=== PATIENT | female | born 1950 | race Caucasian/White ===

== ENCOUNTER → 2018-08-24 11:10 | Outpatient (CLI) | payer MEDICARE, OTHER, SELFPAY ==
[2018-08-24 12:49] LABS: Free T4, Direct Thyroxine 2.37 ng/dL (0.78-2.19)
[2018-08-24 13:03] LABS: Thyroid Stimulating Hormone < 0.02 uIU/mL (0.47-4.68)
[2018-08-24 14:51] LABS: Vitamin D 25 Hydroxy (D3) 49.9 ng/mL (30.0-100.0)
== END ==
PROVIDERS: Family Provider Family Medicine; PCP Student in an Organized Health Care Education/Training Program; Visit Provider Student in an Organized Health Care Education/Training Program
DX: E55.9 Vitamin D deficiency, unspecified (principal); C73 Malignant neoplasm of thyroid gland
CPT/HCPCS: 36415; 82306; 84439; 84443

== ENCOUNTER → 2019-02-21 07:51 | Outpatient (CLI) | payer MEDICARE, OTHER, SELFPAY ==
--- NOTE | 2019-02-21 | DI.MG.S_ITS ---
BILATERAL DIGITAL SCREENING MAMMOGRAM 3D/2D WITH CAD: 02/21/2019 CLINICAL: Routine screening. Family history of breast cancer. Comparison is made to exams dated: 09/09/2017 mammogram, 12/20/2014 mammogram, and 12/15/2012 mammogram - [facility]. There are scattered fibroglandular elements in both breasts. Current study was also evaluated with a Computer Aided Detection (CAD) system. No significant masses, calcifications, or other findings are seen in either breast. There has been no significant interval change. IMPRESSION: NEGATIVE There is no mammographic evidence of malignancy. A 1 year screening mammogram is recommended. This exam was interpreted at Station ID: [id number]. NOTE: For mammograms, a report in lay terms will be sent to the patient. Approximately 15% of breast malignancies will not be visualized mammographically. In the management of a palpable breast mass, a negative mammogram must not discourage biopsy of a clinically suspicious lesion. Electronically Signed By: Tayla chamberlain/luciano:02/21/2019 09:30:08 letter sent: Normal Exam ACR BI-RADS Category 1: Negative 3341F
== END ==
PROVIDERS: PCP Student in an Organized Health Care Education/Training Program; Visit Provider Student in an Organized Health Care Education/Training Program
DX: Z12.31 Encounter for screening mammogram for malignant neoplasm of breast (principal); Z80.3 Family history of malignant neoplasm of breast
CPT/HCPCS: 77063; 77067

== ENCOUNTER → 2019-04-18 11:03 | Outpatient (CLI) | payer MEDICARE, OTHER, SELFPAY ==
[2019-04-18 12:47] LABS: Rubella Antibody IgG > 350.0 IU/mL (>15)
[2019-04-20 16:42] LABS: Rubeola Measles IgG > 300.00 AU/mL (< 13.50)
== END ==
PROVIDERS: PCP Student in an Organized Health Care Education/Training Program; Visit Provider Student in an Organized Health Care Education/Training Program
DX: Z92.29 Personal history of other drug therapy (principal)
CPT/HCPCS: 36415; 86735; 86762; 86765

== ENCOUNTER → 2019-11-29 13:50 | Outpatient (CLI) | payer MEDICARE, OTHER, SELFPAY ==
[2019-11-29 16:07] LABS: BUN Creatinine Ratio 28.8 (6-22); Blood Urea Nitrogen 17 mg/dL (7-17); Calcium 9.1 mg/dL (8.4-10.2); Carbon Dioxide 24 mmol/L (22-32); Chloride 104 mmol/L (98-107); Estimated Glomerular Filt Rate > 60.0 mL/min (>60); Glucose 138 mg/dL (80-110); HEMOLYSIS 19 (0-50); Potassium 3.9 mmol/L (3.4-5.1); Sodium 138 mmol/L (137-145)
[2019-11-29 17:34] LABS: Thyroid Stimulating Hormone < 0.015 uIU/mL (0.47-4.68)
== END ==
PROVIDERS: PCP Student in an Organized Health Care Education/Training Program; Referring Provider Student in an Organized Health Care Education/Training Program; Visit Provider Student in an Organized Health Care Education/Training Program
DX: E03.9 Hypothyroidism, unspecified (principal)
CPT/HCPCS: 36415; 80048; 84443

== ENCOUNTER → 2020-01-21 11:15 | Outpatient (CLI) | payer MEDICARE, OTHER, SELFPAY ==
[2020-01-21 12:10] LABS: Hemoglobin A1C% w Est Avg Glu 4.9 % (4.0-6.0)
[2020-01-21 12:13] LABS: Glucose 130 mg/dL (80-110)
[2020-01-21 12:29] LABS: Free T3, Triiodothyronine Free 3.54 pg/mL (2.77-5.27)
[2020-01-21 12:43] LABS: Thyroid Stimulating Hormone 0.029 uIU/mL (0.47-4.68)
== END ==
PROVIDERS: PCP Student in an Organized Health Care Education/Training Program; Referring Provider Student in an Organized Health Care Education/Training Program; Visit Provider Student in an Organized Health Care Education/Training Program
DX: R73.9 Hyperglycemia, unspecified (principal); E03.9 Hypothyroidism, unspecified
CPT/HCPCS: 36415; 82947; 83036; 84439; 84443; 84481

== ENCOUNTER → 2020-02-26 09:28 | Outpatient (CLI) | payer MEDICARE, OTHER, SELFPAY ==
--- NOTE | 2020-02-26 | DI.CT.S_ITS ---
PROCEDURE: CT SINUS SCREEN WO CON INDICATIONS: CHRONIC PANSINUSITIS TECHNIQUE: Noncontrast 3.0 mm axial images acquired from the frontal sinuses to the mid-sella, with coronal and sagittal reformats. For radiation dose reduction, the following was used: automated exposure control, adjustment of mA and/or kV according to patient size. COMPARISON: None. FINDINGS: Image quality: Excellent. Maxillary Sinuses: No bony remodeling or destruction. Sinuses are clear. Ethmoid Air Cells: No bony remodeling or destruction. Sinuses are clear. Sphenoid Sinuses: No bony remodeling or destruction. Sinuses are clear. Frontal Sinuses: No bony remodeling or destruction. Sinuses are clear. Ostiomeatal Complexes: Ostiomeatal complexes are patent. No Lupe cells. Miscellaneous: Visualized intra-orbital contents are normal. No michelle bullosa or paradoxical turbinate curvature. No nasal septal deviation. IMPRESSION: No findings of acute or chronic sinusitis. Dictated by: Carlos Araujo M.D. on 02/26/2020 at 9:58 Approved by: Carlos Araujo M.D. on 02/26/2020 at 10:02
--- NOTE | 2020-02-26 09:30 | DI.MG.S_ITS ---
BILATERAL DIGITAL SCREENING MAMMOGRAM 3D/2D WITH CAD: 02/26/2020 CLINICAL: Routine screening. Family history of breast cancer. Comparison is made to exams dated: 02/21/2019 mammogram, 09/09/2017 mammogram, 12/20/2014 mammogram, 12/15/2012 mammogram, and 08/31/2011 mammogram - [facility]. There are scattered fibroglandular elements in both breasts. Current study was also evaluated with a Computer Aided Detection (CAD) system. No significant masses, calcifications, or other findings are seen in either breast. There has been no significant interval change. IMPRESSION: NEGATIVE There is no mammographic evidence of malignancy. A 1 year screening mammogram is recommended. This exam was interpreted at Station ID: [id number]. NOTE: For mammograms, a report in lay terms will be sent to the patient. Approximately 15% of breast malignancies will not be visualized mammographically. In the management of a palpable breast mass, a negative mammogram must not discourage biopsy of a clinically suspicious lesion. Electronically Signed By: Ash pratt/luciano:02/26/2020 10:39:42 letter sent: Normal Exam ACR BI-RADS Category 1: Negative 3341F
== END ==
PROVIDERS: PCP Student in an Organized Health Care Education/Training Program; Referring Provider Student in an Organized Health Care Education/Training Program; Visit Provider Student in an Organized Health Care Education/Training Program
DX: J32.4 Chronic pansinusitis (principal); J34.89 Other specified disorders of nose and nasal sinuses; R09.82 Postnasal drip; Z12.31 Encounter for screening mammogram for malignant neoplasm of breast; Z80.3 Family history of malignant neoplasm of breast; Z13.820 Encounter for screening for osteoporosis; Z78.0 Asymptomatic menopausal state; E07.9 Disorder of thyroid, unspecified; F17.200 Nicotine dependence, unspecified, uncomplicated; Z82.62 Family history of osteoporosis; Z91.89 Other specified personal risk factors, not elsewhere classified
CPT/HCPCS: 70486; 77063; 77067; 77080

== ENCOUNTER → 2020-08-04 10:31 | Outpatient (CLI) | payer MEDICARE, OTHER, SELFPAY ==
[2020-08-04 12:49] LABS: TSH w/ Reflex to FT4 0.02 uIU/mL (0.47-4.68)
[2020-08-04 14:52] LABS: Free T4, Direct Thyroxine 2.34 ng/dL (0.78-2.19)
== END ==
PROVIDERS: PCP Student in an Organized Health Care Education/Training Program; Referring Provider Student in an Organized Health Care Education/Training Program; Visit Provider Student in an Organized Health Care Education/Training Program
DX: C73 Malignant neoplasm of thyroid gland (principal); E03.9 Hypothyroidism, unspecified
CPT/HCPCS: 36415; 84439; 84443

== ENCOUNTER → 2020-09-29 10:30 | Outpatient (CLI) | payer MEDICARE, OTHER, SELFPAY ==
[2020-09-29 12:21] LABS: TSH w/ Reflex to FT4 1.19 uIU/mL (0.47-4.68)
== END ==
PROVIDERS: PCP Student in an Organized Health Care Education/Training Program; Referring Provider Student in an Organized Health Care Education/Training Program; Visit Provider Student in an Organized Health Care Education/Training Program
DX: C73 Malignant neoplasm of thyroid gland (principal); E03.9 Hypothyroidism, unspecified
CPT/HCPCS: 36415; 84443

== ENCOUNTER → 2020-12-15 10:45 | Outpatient (CLI) | payer MEDICARE, OTHER, SELFPAY ==
--- NOTE | 2020-12-15 10:47 | DI.RAD.S_ITS ---
PROCEDURE: XR KNEE LT 3V INDICATIONS: Fall, left knee pain TECHNIQUE: 3 views of the knee were acquired. COMPARISON: None. FINDINGS: Bones: No acute fractures or dislocations. No suspicious bony lesions. Mild degenerative changes of the patellofemoral compartment. Soft tissues: No joint effusion. No suspicious soft tissue calcifications. IMPRESSION: Left knee without acute fracture or dislocation. Mild patellofemoral osteoarthrosis. If there is persistent clinical concern for occult fracture given adequate mechanism of injury, consider repeat imaging in 10-14 days. Dictated by: Nick Og M.D. on 12/15/2020 at 12:44 Approved by: Nick Og M.D. on 12/15/2020 at 12:45
[2020-12-15 11:35] LABS: BUN Creatinine Ratio 27.5 (6-22); Blood Urea Nitrogen 14 mg/dL (7-17); Calcium 9.3 mg/dL (8.4-10.2); Carbon Dioxide 26 mmol/L (22-32); Chloride 107 mmol/L (98-107); Estimated Glomerular Filt Rate > 60.0 mL/min (>60); Glucose 107 mg/dL (80-110); HEMOLYSIS < 15 (0-50); Potassium 4.3 mmol/L (3.4-5.1); Sodium 138 mmol/L (137-145)
[2020-12-15 12:19] LABS: Thyroid Stimulating Hormone 0.749 uIU/mL (0.47-4.68)
== END ==
PROVIDERS: PCP Student in an Organized Health Care Education/Training Program; Referring Provider Student in an Organized Health Care Education/Training Program; Visit Provider Student in an Organized Health Care Education/Training Program
DX: M25.562 Pain in left knee (principal); E03.9 Hypothyroidism, unspecified; Z79.1 Long term (current) use of non-steroidal anti-inflammatories (NSAID); C73 Malignant neoplasm of thyroid gland
CPT/HCPCS: 36415; 73562; 80048; 84443

== ENCOUNTER → 2021-04-30 09:12 | Outpatient (CLI) | payer MEDICARE, OTHER, SELFPAY ==
[2021-04-30 10:27] LABS: COVID19 -Nasal RAPID Negative (Negative)
== END ==
PROVIDERS: PCP Student in an Organized Health Care Education/Training Program; Visit Provider Specialist
DX: Z01.812 Encounter for preprocedural laboratory examination (principal); Z20.822 Contact with and (suspected) exposure to COVID-19
CPT/HCPCS: 87635; C9803

== ENCOUNTER 2021-05-01 07:17 | Day surgery (SDC) | payer MEDICARE, OTHER, SELFPAY ==
--- NOTE | 2021-05-01 | PATH_ITS ---
[facility] Accession Number: [id number] . 01 Material submitted: . PART A: colon - TRANSVERSE COLON POLYPS X3 90CM PART B: cecum - CECAL POLYP X2 PART C: body - POLYP AT 15CM . 02 Diagnosis: A. Transverse Colon, Polyps x3, 90 cm, Biopsy: Multiple fragments of tubular adenoma and sessile serrated adenoma. . B. Cecum, Polyp x2, Biopsy: Tubular adenoma in one of three fragments. . C. Colon, Polyp at 15 cm, Biopsy: Inflammatory polyp. Negative for dysplasia and malignancy. [facility] 05/04/2021 1118 Local . 02 Electronically signed: . Maryann Ronquillo MD, Pathologist NPI- [id number] . 01 Gross description: . Part A: TRANSVERSE COLON POLYPS X3 90CM: Received in formalin are multiple fragment(s) of stuart, soft tissue measuring 1.7 x 0.6 x 0.5 cm in aggregate submitted entirely in 1 cassette(s) Part B: CECAL POLYP X2: Received in formalin are 3 fragment(s) of stuart, soft tissue measuring 0.5 x 0.4 x 0.2 cm to 0.3 x 0.2 x 0.1 cm submitted entirely in 1 cassette(s) Part C: POLYP AT 15CM: Received in formalin is 1 fragment(s) of stuart, soft tissue measuring 0.3 x 0.3 x 0.3 cm submitted entirely in 1 cassette(s) /QBJ 05/02/2021 0802 Local . 02 Pathologist provided ICD-10: D12.0, D12.3 . 02 CPT . 558248, 307398, 028811 Performed at: 01 [facility] [address] [id number] MD Jerman Mari MD Phone: [phone] Performed at: 02 [facility] [address] [place] [id number] MD Maryann Ronquillo MD Phone: [phone]
[2021-05-01 07:33] VITALS: BP 122/80; PULSE 73; RESP 14; TEMP 36.2; O2SAT 96; BMI 22.3
[2021-05-01] MEDS: LACTATED RINGERS 1,000 ML 42 ML IV (07:46)
--- NOTE | 2021-05-01 08:46 | PM.HP.1 ---
History of Present Illness History of Present Illness Chief complaint: [facility] Narrative: The patient is a woman here for screening colonoscopy. Last exam was 5 years ago. She states she had polyps removed. No family history of colon cancer. Patient History Medical History Foot pain (2004) Macular degeneration (2012) Malignant neoplasm of thyroid gland Surgical History Anesthesia History of colonoscopy with polypectomy (06/27/15) History of thyroidectomy (1994) Status post ovarian cystectomy (1982) Family & Social History Family History Brother No problems noted. Mother Idiopathic thrombocytopenia purpura Cancer Sister No problems noted. Social History: household members spouse Tobacco & Substance use: Smoking Status Current every day smoker Smoking packs per day 0.5 alcohol intake current alcohol intake frequency a few times a week Substance Use Type does not use Meds Home Medications and Allergies Home Medications Medication Instructions Recorded Confirmed Type [place]/Cu/Glucosamine HCl/M 1 tab PO Q DAY #0 05/19/11 05/01/21 History (#GLUCOSAMINE COMPLEX) lbhsdvo-Q9-pfq-Hb-clhcu-tozn-boron 1 tab PO DAILY tab 06/28/18 05/01/21 History 600 mg-200 unit-40 mg-7.5 mg tablet potassium 99 mg tablet 10 meq PO DAILY 06/28/18 05/01/21 History vitamins A,C,E-pyat-bepsxg 14,320 1 cap PO ONCE cap 06/28/18 05/01/21 History unit-226 mg-200 unit capsule (ICaps AREDS) levothyroxine 125 mcg tablet 125 mcg PO DAILY #90 tab 08/04/20 05/01/21 Rx estradiol 0.5 mg tablet See Rx Instructions .ROUTE 01/27/21 05/01/21 Rx .COMPLEX #45 tab meloxicam 15 mg tablet See Rx Instructions .ROUTE 01/27/21 05/01/21 Rx .COMPLEX #90 tab progesterone micronized 100 mg See Rx Instructions .ROUTE 01/27/21 05/01/21 Rx capsule .COMPLEX #90 cap Allergies Allergy/AdvReac Type Severity Reaction Status Date / Time No Known Drug Allergies Allergy Verified 07/19/21 10:21 Review of Systems Review of Systems Narrative: No cardiopulmonary GI or symptoms. Exam Vital Signs (past 8 hours): - 05/01/21 07:33 Temperature 97.1 F L Pulse Rate 73 Respiratory Rate 14 Blood Pressure 122/80 Pulse Oximetry 96 Oxygen Delivery Method Room Air Narrative Exam Narrative: Pleasant cooperative patient no apparent distress. No masses in the region of her neck or thyroid. No palpable nodes in the neck or supraclavicular areas. Are clear to auscultation. No rales or rhonchi. Heart regular rate and rhythm no murmur gallop. Abdomen is soft nontender without mass. No obvious hernias. Patient is alert and oriented x3. Assessment & Plan Assessment and plan (1) Tubular adenoma of colon: Status: None Assessment & Plan narrative: Screening in high risk group. I have discussed the procedure and the rationale with the patient including risks of bleeding, perforation which would necessitate a major operation, failure to find remove all lesions and the potential to tattoo. She appeared to understand and wished to proceed. Time Spent With Patient Critical Care time: I spent a total of [] minutes of critical care time on this patient's care today; this time is exclusive of procedural time.
--- NOTE | 2021-05-01 08:50 | PM.PREOP ---
Pre-operative Note COVID-19 COVID-19 status: Negative Result date/Date tested (Pos, Neg/Pending): 04/30/21 Interval Note History & Physical reviewed/Exam performed by Physician: Yes Changes to H&P: No ASA Class (for procedural sedation): I
--- NOTE | 2021-05-01 09:22 | PM.OP.COLON ---
Operative Date/Time/Diagnoses Date of procedure: 05/01/21 Time of procedure: 09:22 Pre-op diagnosis: Personal history of colon polyps. Last colonoscopy 5.5 years ago Post-op diagnosis: same (Multiple tiny polyps. Rare sigmoid diverticulosis. One diverticulum in the cecum.) Procedure & Clinicians Study performed: Colonoscopy with cold biopsy Same procedure as scheduled: Yes Indications: Screening in high risk patient Surgeon: Omar Solorio Procedure Notes SCOAP/Timeout: Performed Procedure in detail: The patient was placed in the left lateral decubitus position and underwent IV sedation directed by the surgeon consisting of fentanyl and Versed. Digital exam was remarkable for decreased sphincter tone but otherwise normal. The scope was inserted and advanced through the rectum into the sigmoid, descending, and transverse colon. A small polyp was biopsied in the transverse colon on the way in. Pressure was applied is we made our way into the ascending colon and cecum. The cecum was reached identified by the ileocecal valve and the appendiceal opening. There were 2 very small lesions seen in the cecum which were biopsied and removed. Scope was gradually brought out. Additional Polyps were found at the transverse colon, and at 15 cm. The scope ultimately was retroflexed in the rectum. The appearance was remarkable for internal hemorrhoids with some mild inflammation but no cristal ulceration. The scope was removed and the patient tolerated the procedure well. Scope withdrawal time: 8 minutes(14 and half total) Sedation minutes: 28 Findings: divertiulosis and polyp(s) Specimen(s): other (Polyp biopsies) Complications: none Post-procedure Recommendations: Colonoscopy in 5 years Follow up: as needed Disposition: PACU
[2021-05-01 09:23] VITALS: BP 120/75; PULSE 82; RESP 22; TEMP 37.3; O2SAT 97
[2021-05-01] MEDS: fentaNYL 250 MCG/5 ML INJ IV (09:23)
[2021-05-01] MEDS: MIDAZOLAM 5 MG/5 ML VIAL IV (09:23)
[2021-05-01 09:28] VITALS: BP 108/75; PULSE 81; RESP 12; O2SAT 96
--- NOTE | 2021-05-01 09:29 | SUR.PHASEI ---
Received to PACU after colonoscopy with sedation. Report from MARCOS Landon.
[2021-05-01 09:31] VITALS: BP 116/67; PULSE 85; RESP 18; O2SAT 95
[2021-05-01 09:32] VITALS: BP 109/68; PULSE 81; RESP 20; O2SAT 97
== END 2021-05-01 09:32 | disposition home or self-care (01) ==
PROVIDERS: PCP Student in an Organized Health Care Education/Training Program; Referring Provider Specialist; Visit Provider Specialist
PROC: 0DJD8ZZ Inspection of Lower Intestinal Tract, Via Natural or Artificial Opening Endoscopic (ICD-10-PCS; CPT 45378; principal; 2021-05-01 08:30)
DX: Z12.11 Encounter for screening for malignant neoplasm of colon (principal); Z86.010 Personal history of colon polyps; K57.30 Diverticulosis of large intestine without perforation or abscess without bleeding; D12.3 Benign neoplasm of transverse colon; D12.0 Benign neoplasm of cecum; K51.40 Inflammatory polyps of colon without complications
CPT/HCPCS: 45380; 99152; 99153; J2250; J3010

== ENCOUNTER → 2021-12-17 11:06 | Outpatient (CLI) | payer MEDICARE, OTHER, SELFPAY ==
--- NOTE | 2021-12-17 11:12 | DI.RAD.S_ITS ---
PROCEDURE: XR CLAVICLE RT INDICATIONS: Clavicle mass TECHNIQUE: 2 views of the clavicle were acquired. COMPARISON: None. FINDINGS: Bones: No acute fracture or dislocation. Advanced acromioclavicular and glenohumeral osteoarthritis, with high-riding humeral head. No lytic or blastic lesion definitely identified radiographically. Soft tissues: No suspicious calcifications. There is a small bump seen superior to the acromioclavicular joint, which may correspond to reported mass, and can be seen with extension of shoulder bursal effusion. IMPRESSION: No definite lytic or blastic lesion of the clavicle. No acute radiographic abnormality. Advanced right shoulder degenerative changes with radiographic suggestion of rotator cuff pathology, which could be confirmed with MRI if needed. Dictated by: Frederick Zelaya M.D. on 12/17/2021 at 12:06 Approved by: Frederick Zelaya M.D. on 12/17/2021 at 12:09
== END ==
PROVIDERS: PCP Student in an Organized Health Care Education/Training Program; Referring Provider Student in an Organized Health Care Education/Training Program; Visit Provider Student in an Organized Health Care Education/Training Program
DX: M89.311 Hypertrophy of bone, right shoulder (principal)
CPT/HCPCS: 73000

== ENCOUNTER → 2021-12-19 10:34 | Outpatient (CLI) | payer MEDICARE, OTHER, SELFPAY ==
--- NOTE | 2021-12-19 10:37 | DI.MG.S_ITS ---
BILATERAL DIGITAL SCREENING MAMMOGRAM 3D/2D WITH CAD: 12/19/2021 CLINICAL: Routine screening. Family history of breast cancer. Comparison is made to exams dated: 02/26/2020 mammogram, 02/21/2019 mammogram, and 09/09/2017 mammogram - [facility]. There are scattered fibroglandular elements in both breasts. Current study was also evaluated with a Computer Aided Detection (CAD) system. No significant masses, calcifications, or other findings are seen in either breast. There has been no significant interval change. IMPRESSION: NEGATIVE There is no mammographic evidence of malignancy. A 1 year screening mammogram is recommended. Based on the Tyrer Cuzick model (a risk assessment model) the patient's lifetime risk is 9.9% and her 10 year risk is 6.3%. According to the ACR, ACS, and NCCN guidelines, an annual breast MRI exam along with mammogram is recommended if the patient's lifetime risk is 20% or greater. This exam was interpreted at Station ID: [id number]. NOTE: For mammograms, a report in lay terms will be sent to the patient. Approximately 15% of breast malignancies will not be visualized mammographically. In the management of a palpable breast mass, a negative mammogram must not discourage biopsy of a clinically suspicious lesion. Electronically Signed By: Nick gaxiola/luciano:12/21/2021 07:16:52 letter sent: Normal Exam ACR BI-RADS Category 1: Negative 3341F
--- NOTE | 2021-12-19 10:37 | DI.CT.S_ITS ---
PROCEDURE: CT CHEST WO CON INDICATIONS: Cough TECHNIQUE: Noncontrast 5 mm thick sections acquired from the pulmonary apices to the posterior costophrenic angles. 1 mm lung window, 5 mm thick coronal and sagittal and 7 mm axial MIP reformats were then acquired. For radiation dose reduction, the following was used: automated exposure control, adjustment of mA and/or kV according to patient size. COMPARISON: None. FINDINGS: Image quality: Excellent. Lungs and pleura: No acute air space opacities. No pleural effusions or pneumothorax. Central and peripheral airways are patent and normal in caliber. No mucosal plugging. Mediastinum: Heart size is normal. The coronary arteries have atherosclerotic calcifications. No pericardial effusion. No mediastinal adenopathy by size criteria. Thoracic aorta and central pulmonary arteries are normal in size. Esophagus is normal in caliber. No hiatal hernia. Bones and chest wall: No suspicious bony lesions. No vertebral body compression fractures. Disc disease in the lumbar spine. No axillary or supraclavicular adenopathy by size criteria. Thyroid gland status post resection with multiple metallic clips in the thyroid beds. Abdomen: Limited visualization of the upper abdomen shows no acute abnormality. IMPRESSION: No acute abnormality of the chest. The lungs are clear. Dictated by: Jonn Bernal M.D. on 12/21/2021 at 13:47 Approved by: Jonn Bernal M.D. on 12/21/2021 at 13:52
[2021-12-19 11:21] LABS: BUN Creatinine Ratio 24.2 (6-22); Blood Urea Nitrogen 15 mg/dL (7-17); Calcium 8.6 mg/dL (8.4-10.2); Carbon Dioxide 26 mmol/L (22-32); Chloride 105 mmol/L (98-107); Estimated Glomerular Filt Rate > 60 mL/min (>60); Glucose 102 mg/dL (80-110); HEMOLYSIS < 15 (0-50); Potassium 4.1 mmol/L (3.4-5.1); Sodium 137 mmol/L (137-145)
[2021-12-19 11:51] LABS: TSH w/ Reflex to FT4 1.12 uIU/mL (0.47-4.68)
== END ==
PROVIDERS: PCP Student in an Organized Health Care Education/Training Program; Referring Provider Student in an Organized Health Care Education/Training Program; Visit Provider Student in an Organized Health Care Education/Training Program
DX: Z12.31 Encounter for screening mammogram for malignant neoplasm of breast (principal); Z80.3 Family history of malignant neoplasm of breast; R05.9 Cough, unspecified; E03.9 Hypothyroidism, unspecified; E87.6 Hypokalemia; F17.200 Nicotine dependence, unspecified, uncomplicated
CPT/HCPCS: 36415; 71250; 77063; 77067; 80048; 84443

== ENCOUNTER → 2022-03-17 09:42 | Outpatient (CLI) | payer MEDICARE, OTHER, SELFPAY ==
--- NOTE | 2022-03-17 09:43 | DI.RAD.S_ITS ---
PROCEDURE: XR DEXA AXIAL SKELETON INDICATIONS: Osteoporosis screening COMPARISON: [facility], CR, XR DEXA AXIAL SKELETON, 02/26/2020, 9:54. FINDINGS: This blank DEXA report has been sent in error by the PACS system. The correct and complete report will be forthcoming in 1-2 days. Thank you for your patience and understanding. Dictated by: Carlos Araujo M.D. on 03/17/2022 at 13:44 Approved by: Carlos Araujo M.D. on 03/17/2022 at 13:45
== END ==
PROVIDERS: Family Provider Student in an Organized Health Care Education/Training Program; PCP Student in an Organized Health Care Education/Training Program; Referring Provider Student in an Organized Health Care Education/Training Program; Visit Provider Student in an Organized Health Care Education/Training Program
DX: Z78.0 Asymptomatic menopausal state (principal); Z13.820 Encounter for screening for osteoporosis
CPT/HCPCS: 77080

== ENCOUNTER → 2022-05-17 11:22 | Outpatient (CLI) | payer MEDICARE, OTHER, SELFPAY ==
--- NOTE | 2022-05-17 11:23 | DI.RAD.S_ITS ---
PROCEDURE: XR HIP W PEL IF DONE BILAT 2V INDICATIONS: Chronic hip pain not improving with PT; L>R TECHNIQUE: AP pelvis with lateral view(s) of the bilateral hip(s). COMPARISON: [facility], CT KUB, 08/17/2004, 9:54. FINDINGS: Bones: No fractures or dislocations. Pelvic ring appears intact. No suspicious bony lesions. Severe left and moderate right hip joint space narrowing with periarticular osteophyte formation. Degenerative disc and facet disease involves the inferior lumbar spine. Soft tissues: The visualized bowel gas pattern is normal. No suspicious soft tissue calcifications. IMPRESSION: 1. 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 Dictated by: Ilan Cazares [facility] Interpreted: Douglas Zuleta MD on 05/17/2022 at 12:04 Transcribed by: DANIEL on 05/17/2022 at 12:05 Approved by: Douglas Zuleta M.D. on 05/17/2022 at 17:52
== END ==
PROVIDERS: Family Provider Student in an Organized Health Care Education/Training Program; PCP Student in an Organized Health Care Education/Training Program; Referring Provider Student in an Organized Health Care Education/Training Program; Visit Provider Student in an Organized Health Care Education/Training Program
DX: M25.551 Pain in right hip (principal); M25.552 Pain in left hip; M16.0 Bilateral primary osteoarthritis of hip
CPT/HCPCS: 73521

== ENCOUNTER → 2022-08-20 11:50 | Outpatient (CLI) | payer MEDICARE, OTHER, SELFPAY | PROVIDERS: Family Provider Student in an Organized Health Care Education/Training Program; PCP Student in an Organized Health Care Education/Training Program; Visit Provider Registered Nurse | DX: N89.8 Other specified noninflammatory disorders of vagina (principal); N39.0 Urinary tract infection, site not specified | CPT/HCPCS: 87086; 87210 ==

== ENCOUNTER → 2022-08-26 11:56 | Outpatient (CLI) | payer MEDICARE, OTHER, SELFPAY ==
--- NOTE | 2022-08-26 11:57 | DI.US.S_ITS ---
PROCEDURE: US PELVIC COMPLETE INDICATIONS: Vaginal bleeding TECHNIQUE: Real-time scanning was performed of the pelvic organs, with image documentation. Additional endovaginal scanning was necessary due to incomplete visualization of the adnexal and endometrial structures by transabdominal scanning. COMPARISON: None. FINDINGS: Uterus: Uterus is anteverted and normal in size at 5.9 x 2.6 x 3.5 cm. The myometrium is heterogeneous. The endometrium measures 5 mm combined thickness. No fibroids noted. Ovaries: The right ovary measures 2.7 x 1.6 x 1.6 cm, with a calculated ovarian volume of 3.6 cc. Left ovary is surgically absent. No adnexal masses are seen. Other: No pathologic free abdominal or pelvic fluid. IMPRESSION: Borderline endometrial thickening in a patient with postmenopausal bleeding. Greater than 5 mm is abnormal. 5 mm is upper limits of normal. We strive to produce accurate, complete, and clear reports of imaging services. To assist us in improving patient care, this report was composed using standard report templates and voice recognition software. Therefore, it may contain abnormal punctuation, insertions and/or omissions. Occasional wrong-word or sound-alike substitutions may occur. Though we review the report and make efforts to correct it, we do recommend that the report be read carefully in proper context to recognize any text inaccuracies. Dictated by: Hoang Nelson M.D. on 08/26/2022 at 15:40 Approved by: Hoang Nelson M.D. on 08/26/2022 at 15:42
== END ==
PROVIDERS: Family Provider Student in an Organized Health Care Education/Training Program; PCP Student in an Organized Health Care Education/Training Program; Referring Provider Student in an Organized Health Care Education/Training Program; Visit Provider Student in an Organized Health Care Education/Training Program
DX: N95.0 Postmenopausal bleeding (principal); F17.200 Nicotine dependence, unspecified, uncomplicated
CPT/HCPCS: 76830; 76856; 81001

== ENCOUNTER → 2022-08-26 16:16 | Outpatient (CLI) | payer MEDICARE, OTHER, SELFPAY ==
[2022-08-26 17:13] LABS: Appearance Urine UA CLEAR; Bilirubin Urine UA NEGATIVE (NEGATIVE); Color Urine UA YELLOW; Glucose Urine UA NEGATIVE (Negative); Ketones Urine UA NEGATIVE (NEGATIVE); Leukocyte Esterase Urine UA NEGATIVE (NEGATIVE); Nitrite Urine UA NEGATIVE (Negative); Occult Blood Urine UA NEGATIVE (Negative); Protein Urine UA NEGATIVE (Negative); Specific Gravity Urine UA 1.015 (1.000-1.035); Urobilinogen Urine UA 0.2 E.U./dL (0.2)
[2022-08-26 17:22] LABS: Amorphous Sediment Urine 1+; Bacteria Urine None Seen; Culture Indicated Urine Cult Not Indicated; RBC Urine 0-1/HPF (0-5/HPF); WBC Urine None Seen (0-5/HPF)
== END ==
PROVIDERS: Family Provider Student in an Organized Health Care Education/Training Program; PCP Student in an Organized Health Care Education/Training Program; Referring Provider Student in an Organized Health Care Education/Training Program; Visit Provider Student in an Organized Health Care Education/Training Program
DX: N95.0 Postmenopausal bleeding (principal); F17.200 Nicotine dependence, unspecified, uncomplicated
CPT/HCPCS: 81001

== ENCOUNTER → 2022-09-27 11:05 | Outpatient (CLI) | payer MEDICARE, OTHER, SELFPAY ==
[2022-09-27 14:26] LABS: MRSA (Nasal) PCR Not Detected (Not Detect)
== END ==
PROVIDERS: Family Provider Student in an Organized Health Care Education/Training Program; PCP Student in an Organized Health Care Education/Training Program; Visit Provider Student in an Organized Health Care Education/Training Program
DX: Z01.810 Encounter for preprocedural cardiovascular examination (principal); E03.9 Hypothyroidism, unspecified
CPT/HCPCS: 87797

== ENCOUNTER → 2022-09-27 11:15 | Outpatient (CLI) | payer MEDICARE, OTHER, SELFPAY ==
[2022-09-27 12:18] LABS: Add Manual Diff / Slide Review NO; Basophils Absolute Auto 0 /uL (0-100); Basophils Percent Auto 0.4 % (0-2); Eosinophils Absolute Auto 100 /uL (0-450); Eosinophils Percent Auto 1.6 % (2-4); Hemoglobin 15.5 g/dL (12.0-16.0); Lymphocytes Absolute Auto 1600 /uL (1100-4500); Lymphocytes Percent Auto 20.6 % (25-40); Mean Corpuscular HGB Conc 34.5 % (30-36); Mean Corpuscular Volume 101.4 fL (80-100); Monocytes Absolute Auto 900 /uL (0-900); Monocytes Percent Auto 11.9 % (3-14); Neutrophils Absolute Auto 5000 /uL (1500-7000); Neutrophils Percent Auto 65.5 % (50-75); Platelet Count 184 X10^3/uL (150-400); Red Blood Cell Count 4.44 X10^6/uL (4.0-5.2); Red Cell Distribution Width 13.9 % (11.6-14.8); White Blood Cell Count 7.6 X10^3/uL (4.5-11.0)
[2022-09-27 12:51] LABS: Alanine Aminotransferase 33 IU/L (<35); Albumin 4.1 g/dL (3.5-5.0); Albumin Globulin Ratio 1.5 (1.0-2.8); Alkaline Phosphatase 105 U/L (38-126); Aspartate Aminotransferase 32 IU/L (14-36); BUN Creatinine Ratio 22.8 (6-22); Bilirubin Total 0.7 mg/dL (0.2-1.3); Blood Urea Nitrogen 13 mg/dL (7-17); Calcium 8.8 mg/dL (8.4-10.2); Carbon Dioxide 27 mmol/L (22-32); Chloride 103 mmol/L (98-107); Estimated Glomerular Filt Rate > 60 mL/min (>60); Globulin 2.8 g/dL (1.7-4.1); Glucose 92 mg/dL (80-110); HEMOLYSIS < 15 (0-50); Sodium 136 mmol/L (137-145); Total Protein 6.9 g/dL (6.3-8.2)
[2022-09-27 14:23] LABS: Appearance Urine UA CLEAR; Bilirubin Urine UA NEGATIVE (NEGATIVE); Color Urine UA YELLOW; Glucose Urine UA NEGATIVE (Negative); Ketones Urine UA 1+ (NEGATIVE); Leukocyte Esterase Urine UA NEGATIVE (NEGATIVE); Nitrite Urine UA NEGATIVE (Negative); Occult Blood Urine UA NEGATIVE (Negative); Protein Urine UA TRACE (Negative); Urobilinogen Urine UA 0.2 E.U./dL (0.2)
[2022-09-27 14:44] LABS: Bacteria Urine Few (2-10); Culture Indicated Urine Cult Not Indicated; RBC Urine None Seen (0-5/HPF); Squamous Epithelial Cell Urine 0-1 /HPF (0-5/HPF); WBC Urine 0-1/HPF (0-5/HPF)
== END ==
PROVIDERS: Family Provider Student in an Organized Health Care Education/Training Program; PCP Student in an Organized Health Care Education/Training Program; Referring Provider Student in an Organized Health Care Education/Training Program; Visit Provider Student in an Organized Health Care Education/Training Program
DX: E03.9 Hypothyroidism, unspecified (principal); Z01.810 Encounter for preprocedural cardiovascular examination
CPT/HCPCS: 36415; 80053; 81001; 84443; 85025; 87797

== ENCOUNTER 2023-05-07 08:53 | Emergency (ER) | payer MEDICARE, OTHER, SELFPAY ==
[2023-05-07 09:01] VITALS: BP 164/83; PULSE 89; RESP 15; TEMP 36.5; O2SAT 96; BMI 22.3
[2023-05-07 09:05] VITALS: BP 164/83; PULSE 98; O2SAT 96
--- NOTE | 2023-05-07 09:28 | ED.FALL ---
HPI - Fall General Chief Complaint: Fall Stated Complaint: fell last night/ L/shoulder and rib pain Time Seen by Provider: 05/07/23 09:06 Source: patient Mode of arrival: Ambulatory History of Present Illness HPI Narrative: Patient is 72-year-old female history of thyroidectomy thyroid cancer arthritis presenting today after fall downstairs last night. She says that she slipped in socks and fell directly on 1 stair landing mostly on her left side. Not hit her head did not lose consciousness no neck pain no numbness tingling or weakness. Complaining of some left rib pain. No sacral or hip pain. She would leftover tramadol and oxycodone from previous surgeries. She took 1 last night it did seem to help. But definite pain with movement. No head injury no loss of consciousness not on anticoagulation or antiplatelet medication. Related Data Home Medications Medication Instructions Recorded Confirmed [place]/Cu/Glucosamine HCl/M 1 tab PO Q DAY ##0 05/19/11 09/27/22 (#GLUCOSAMINE COMPLEX) clablkh-O3-jbu-Zn-gkgzc-wqyh-boron 1 tab PO DAILY 06/28/18 09/27/22 600 mg-200 unit-40 mg-7.5 mg tablet potassium 99 mg tablet 10 meq PO DAILY 06/28/18 09/27/22 vitamins A,C,J-bboz-vjgziy 4,296 1 cap PO ONCE 06/28/18 09/27/22 mcg-226 mg-90 mg capsule (ICaps AREDS) Previous Rx's Medication Instructions Recorded estradiol 0.5 mg tablet 0.25 mg (1/2 x 0.5 mg) PO DAILY 01/27/23 #45 tabs levothyroxine 125 mcg tablet 125 mcg PO DAILY #90 tabs 01/27/23 meloxicam 15 mg tablet 15 mg PO DAILY #90 tabs 01/27/23 progesterone micronized 100 mg 100 mg PO DAILY #90 caps 01/27/23 capsule Allergies Allergy/AdvReac Type Severity Reaction Status Date / Time No Known Drug Allergies Allergy Verified 05/07/23 09:06 Review of Systems Review of Systems ROS Unobtainable: All systems reviewed & are unremarkable except as noted in HPI and below Patient History Medical History Internal hemorrhoids Foot pain (2004) Macular degeneration (2012) Malignant neoplasm of thyroid gland Surgical History History of colonoscopy with polypectomy (06/27/15) Anesthesia History of thyroidectomy (1994) Status post ovarian cystectomy (1982) Family History Brother No problems noted. Mother Idiopathic thrombocytopenia purpura Cancer Sister No problems noted. Social History household members: spouse Smoking Status: Current every day smoker alcohol intake: current Smoking Status: Current every day smoker alcohol intake frequency: a few times a week Substance Use Type: does not use Exam Initial Vital Signs Initial Vital Signs: Vital Signs Temperature 97.7 F 05/07/23 09:01 Pulse Rate 89 05/07/23 09:01 Respiratory Rate 15 05/07/23 09:01 Blood Pressure 164/83 H 05/07/23 09:01 Pulse Oximetry 96 05/07/23 09:01 Oxygen Delivery Method Room Air 05/07/23 09:01 GENERAL: Alert pleasant 72-year-old female and in no acute distress. HEENT: Head atraumatic,EOMI, pupils reactive, face symmetric, moist mucous membranes CARDIOVASCULAR: Regular rate and rhythm without murmurs, rubs or gallops. RESPIRATORY: Breath sounds equal bilaterally, no wheezes rales or rhonchi. Respiratory distress no contusion no paradoxical movement ABDOMEN: Soft, nontender. Normoactive bowel sounds all 4 quadrants. No guarding or rebound. EXTREMITIES: Normal range of motion, no clubbing or edema. Neurovascularly intact Left upper extremity no significant shoulder tenderness although she says it sore no decreased range of motion no swelling no contusion distal radial pulse intact NEUROLOGICAL: Alert and oriented x4.Normal gait and speech. Cranial nerves II through XII grossly intact. SKIN: Warm, dry, no laceration, no petechiae, no rashes or lesions. Course Orders Ordered: ED Orders 05/07/23 09:33 XR ribs LT min 3V w CXR1V Stat Vital Signs Vital signs: Vital Signs - 8 hr 05/07/23 11:18 Respiratory Rate 18 Pulse Oximetry 96 Oxygen Delivery Method Room Air MDM - Fall Imaging Data Chest x-ray: Radiologist's Impression: PROCEDURE: XR RIBS LT MIN 3V W CXR1V INDICATIONS: fall pain 6-10 pasquale TECHNIQUE: 4 views of the right ribs were acquired, along with a single view chest. COMPARISON: None. FINDINGS: Surgical changes and devices: Surgical clips throughout the thyroid bed.. Bones and chest wall: Nondisplaced posterior fractures of the left 10th and 11th ribs with mild angulation. No pneumothorax. No suspicious bony lesions. Overlying soft tissues appear unremarkable. Lungs and pleura: No pleural effusions or pneumothorax. Lungs appear clear. Mediastinum: Mediastinal contours appear normal. Heart size is normal. IMPRESSION: Nondisplaced left 10th and 11th rib fractures. Dictated by: Glenn Araujo M.D. on 05/07/2023 at 9:19 MDM Narrative Medical decision making narrative: Patient well-appearing 72-year-old female presents today with left-sided rib and back pain after fall down 1 stair. No head injury not on anticoagulation. No real pelvis sacral or hip pain. At this time x-ray confirms fractured ribs 10 and 11. No hypoxia. Have lots of oxycodone and tramadol at home. Given incentive spirometer by Respiratory. Supportive care only. Discharge Plan Departure Patient Disposition: Home Clinical Impression: Closed rib fracture, Pre-operative cardiovascular examination Instructions: Rib Fracture Activity Restrictions/Additional Instructions: *You have been diagnosed with rib fracture *What to do: You have broken ribs 10 and 11. *Continue to take medications as directed Tylenol 1000 mg every 6 hours if needed for guie-mf-glvgpymq pain Tramadol 50 mg every 6 hours if needed for moderate pain Oxycodone 5 mg every 4-6 hours if needed for severe pain *Follow up with your primary care provider in 2-3 days or call [phone] *Return to ER if you should have increasing pain shortness of breath chest or any new, worsening or concerning symptoms Prescriptions: No Action [place]/Cu/Glucosamine HCl/M (#GLUCOSAMINE COMPLEX) 1 tab PO Q DAY Qty: 0 estradiol 0.5 mg tablet 0.25 mg PO DAILY Qty: 45 1RF meloxicam 15 mg tablet 15 mg PO DAILY Qty: 90 1RF levothyroxine 125 mcg tablet 125 mcg PO DAILY Qty: 90 1RF progesterone micronized 100 mg capsule 100 mg PO DAILY Qty: 90 1RF potassium 99 mg tablet 10 meq PO DAILY Ed-J1-pwg-zupk-kuj-efme-bor [id number] hc-xvmm-de-mg tablet 1 tab PO DAILY vitamins A,C,K-iibc-ibshef [ICaps AREDS] [id number] fmpi-qw-jjwo capsule 1 cap PO ONCE Referrals: Shyam Martinez DO [Primary Care Provider] - Stand Alone Forms: Patient Portal/API
--- NOTE | 2023-05-07 09:29 | PC.NURSE ---
Dr. Monzon at bedside
--- NOTE | 2023-05-07 09:33 | DI.RAD.S_ITS ---
PROCEDURE: XR RIBS LT MIN 3V W CXR1V INDICATIONS: fall pain 6-10 pasquale TECHNIQUE: 4 views of the right ribs were acquired, along with a single view chest. COMPARISON: None. FINDINGS: Surgical changes and devices: Surgical clips throughout the thyroid bed.. Bones and chest wall: Nondisplaced posterior fractures of the left 10th and 11th ribs with mild angulation. No pneumothorax. No suspicious bony lesions. Overlying soft tissues appear unremarkable. Lungs and pleura: No pleural effusions or pneumothorax. Lungs appear clear. Mediastinum: Mediastinal contours appear normal. Heart size is normal. IMPRESSION: Nondisplaced left 10th and 11th rib fractures. Dictated by: Glenn Araujo M.D. on 05/07/2023 at 9:19 Approved by: Glenn Araujo M.D. on 05/07/2023 at 9:22
[2023-05-07 11:18] VITALS: RESP 18; O2SAT 96
== END 2023-05-07 11:18 | disposition home or self-care (01) ==
PROVIDERS: Emergency Provider Emergency Medicine; Family Provider Student in an Organized Health Care Education/Training Program; PCP Family Medicine
DX: S22.42XA Multiple fractures of ribs, left side, initial encounter for closed fracture (principal); W10.9XXA Fall (on) (from) unspecified stairs and steps, initial encounter
CPT/HCPCS: 71101; 99281; 99283

== ENCOUNTER → 2023-05-16 09:55 | Outpatient (CLI) | payer MEDICARE, OTHER, SELFPAY ==
[2023-05-16 10:54] LABS: Add Manual Diff / Slide Review NO; Basophils Absolute Auto 0 /uL (0-100); Basophils Percent Auto 0.6 % (0-2); Eosinophils Absolute Auto 100 /uL (0-450); Hematocrit 45.7 % (36-46); Hemoglobin 15.7 g/dL (12.0-16.0); Lymphocytes Absolute Auto 1500 /uL (1100-4500); Lymphocytes Percent Auto 22.2 % (25-40); Mean Corpuscular HGB Conc 34.3 % (30-36); Mean Corpuscular Hemoglobin 34.6 PG (26-34); Mean Corpuscular Volume 100.8 fL (80-100); Monocytes Absolute Auto 600 /uL (0-900); Monocytes Percent Auto 9.1 % (3-14); Neutrophils Absolute Auto 4400 /uL (1500-7000); Neutrophils Percent Auto 66.1 % (50-75); Platelet Count 197 X10^3/uL (150-400); Red Blood Cell Count 4.54 X10^6/uL (4.0-5.2); Red Cell Distribution Width 14.2 % (11.6-14.8); White Blood Cell Count 6.6 X10^3/uL (4.5-11.0)
[2023-05-16 10:58] LABS: HEMOLYSIS 19 (0-50)
[2023-05-16 11:03] LABS: Alanine Aminotransferase 29 IU/L (<35); Albumin 4.2 g/dL (3.5-5.0); Albumin Globulin Ratio 1.4 (1.0-2.8); Alkaline Phosphatase 84 U/L (38-126); Aspartate Aminotransferase 38 IU/L (14-36); BUN Creatinine Ratio 32.1 (6-22); Bilirubin Total 1.2 mg/dL (0.2-1.3); Blood Urea Nitrogen 17 mg/dL (7-17); Calcium 9.2 mg/dL (8.4-10.2); Carbon Dioxide 22 mmol/L (22-32); Chloride 106 mmol/L (98-107); Estimated Glomerular Filt Rate > 60 mL/min (>60); Globulin 3.1 g/dL (1.7-4.1); Glucose 110 mg/dL (80-110); Potassium 4.1 mmol/L (3.4-5.1); Sodium 137 mmol/L (137-145); Total Protein 7.3 g/dL (6.3-8.2)
[2023-05-16 20:57] LABS: Free T4, Direct Thyroxine 1.65 ng/dL (0.78-2.19)
[2023-05-16 21:38] LABS: Vitamin B12 570 pg/mL (239-931)
== END ==
PROVIDERS: Family Provider Student in an Organized Health Care Education/Training Program; PCP Family Medicine; Referring Provider Family Medicine; Visit Provider Family Medicine
DX: E78.5 Hyperlipidemia, unspecified (principal); E03.9 Hypothyroidism, unspecified; E87.6 Hypokalemia; M16.0 Bilateral primary osteoarthritis of hip
CPT/HCPCS: 36415; 80053; 82607; 84439; 84443; 85025

== ENCOUNTER → 2023-05-31 10:33 | Outpatient (CLI) | payer MEDICARE, OTHER, SELFPAY ==
--- NOTE | 2023-05-31 10:34 | DI.CT.S_ITS ---
PROCEDURE: CT LUNG LOW DOSE SCREENING INDICATIONS: screening lung cancer TECHNIQUE: Noncontrast 2.0-2.5 mm thick sections acquired from the pulmonary apices to the posterior costophrenic angles. 7 mm thick axial MIP, and 5 mm coronal and sagittal reformats were then acquired. For radiation dose reduction, the following was used: automated exposure control, adjustment of mA and/or kV according to patient size. COMPARISON: None. FINDINGS: Image quality: Diagnostic. Lower Neck: No enlarged lymph nodes. Thyroid: Thyroidectomy. Axillae: No enlarged lymph nodes. Chest Wall: Unremarkable. Bones: Healing left posterior rib fractures. Lungs and Pleura: No pneumothorax or pleural effusions. No consolidation or suspicious nodules. A few regions of mucous impaction. Heart: Heart size is normal. No pericardial effusion. Thoracic Vessels: The aorta and pulmonary arteries demonstrate normal size. Mediastinum and Shefali: No enlarged lymph nodes. Esophagus: No wall thickening. No hiatal hernia. Upper Abdomen: Visualized upper abdomen solid organs and bowel loops appear normal. IMPRESSION: No suspicious pulmonary nodules. LUNG-RADS 1; continued annual screening, if eligible. Clinically Significant Non-pulmonary Findings: None. Dictated by: Ed Urban M.D. on 05/31/2023 at 12:00 Approved by: Ed Urban M.D. on 05/31/2023 at 12:07
== END ==
PROVIDERS: Family Provider Student in an Organized Health Care Education/Training Program; PCP Family Medicine; Referring Provider Family Medicine; Visit Provider Family Medicine
DX: F17.210 Nicotine dependence, cigarettes, uncomplicated (principal); Z12.2 Encounter for screening for malignant neoplasm of respiratory organs
CPT/HCPCS: 71271

== ENCOUNTER → 2023-07-05 13:34 | Outpatient (CLI) | payer MEDICARE, OTHER, SELFPAY ==
--- NOTE | 2023-07-05 13:36 | DI.US.S_ITS ---
PROCEDURE: US ABDOMEN LIMITED INDICATIONS: possible soft tissue mass TECHNIQUE: Real-time focused scanning was performed of the clinical concern of the left flank, with image documentation. COMPARISON: None. FINDINGS: Scan is performed at the area of clinical concern within the left flank. Normal appearing adipose tissue can be seen within this region, without an encapsulated lipoma. No masses or fluid collections are seen. No hematomas. IMPRESSION: Normal appearing adipose tissue can be seen at the area of clinical concern within the left flank. Dictated by: John Carson M.D. on 07/05/2023 at 15:23 Approved by: John Carson M.D. on 07/05/2023 at 15:24
== END ==
LOC: US 13:35
PROVIDERS: Family Provider Student in an Organized Health Care Education/Training Program; PCP Family Medicine; Referring Provider Physician Assistant; Visit Provider Physician Assistant
DX: R19.00 Intra-abdominal and pelvic swelling, mass and lump, unspecified site (principal)
CPT/HCPCS: 76705

== ENCOUNTER → 2023-07-14 08:50 | Outpatient (CLI) | payer MEDICARE, OTHER, SELFPAY ==
--- NOTE | 2023-07-14 08:51 | DI.MG.S_ITS ---
BILATERAL DIGITAL SCREENING MAMMOGRAM 3D/2D WITH CAD: 07/14/2023 CLINICAL: Routine screening. Family history of breast cancer. Comparison is made to exams dated: 12/19/2021 mammogram, 02/26/2020 mammogram, and 02/21/2019 mammogram - [facility]. Both breasts are heterogeneously dense, which may obscure small masses (category c / 51-75% glandular tissue). Current study was also evaluated with a Computer Aided Detection (CAD) system. No significant masses, calcifications, or other findings are seen in either breast. There has been no significant interval change. IMPRESSION: NEGATIVE There is no mammographic evidence of malignancy. A 1 year screening mammogram is recommended. Based on the Tyrer Cuzick model (a risk assessment model) the patient's lifetime risk is 13.9% and her 10 year risk is 9.7%. According to the ACR, ACS, and NCCN guidelines, an annual breast MRI exam along with mammogram is recommended if the patient's lifetime risk is 20% or greater. This exam was interpreted at Station ID: [id number]. NOTE: For mammograms, a report in lay terms will be sent to the patient. Approximately 15% of breast malignancies will not be visualized mammographically. In the management of a palpable breast mass, a negative mammogram must not discourage biopsy of a clinically suspicious lesion. Electronically Signed By: Frederick junior/luciano:07/14/2023 10:04:39 letter sent: Normal Exam ACR BI-RADS Category 1: Negative [id number]
== END ==
PROVIDERS: Family Provider Student in an Organized Health Care Education/Training Program; PCP Family Medicine; Referring Provider Family Medicine; Visit Provider Family Medicine
DX: Z12.31 Encounter for screening mammogram for malignant neoplasm of breast (principal); Z80.3 Family history of malignant neoplasm of breast; R92.333 Mammographic heterogeneous density, bilateral breasts
CPT/HCPCS: 77063; 77067

== ENCOUNTER → 2023-09-26 12:16 | Outpatient (CLI) | payer MEDICARE, OTHER, SELFPAY ==
--- NOTE | 2023-09-26 12:18 | DI.RAD.S_ITS ---
PROCEDURE: XR CHEST 2V INDICATIONS: Cough TECHNIQUE: 2 views of the chest were acquired. COMPARISON: [facility], CHEST 2 VIEW, 08/17/2016, 13:04. [facility], CHEST 2 VIEW, 02/12/2015, 16:27. FINDINGS: Surgical changes and devices: Surgical clips projecting over the upper mediastinum and neck. Lungs and pleura: Lungs are clear. No pleural effusions or pneumothorax. Mediastinum: Mediastinal contours are normal. Heart size is normal. Bones and chest wall: No suspicious bony abnormalities. Soft tissues appear unremarkable. IMPRESSION: No acute cardiopulmonary abnormality is seen. Dictated by: Leonel Camara M.D. on 09/26/2023 at 14:50 Approved by: Leonel Camara M.D. on 09/26/2023 at 14:50
== END ==
LOC: RAD 12:17
PROVIDERS: Family Provider Student in an Organized Health Care Education/Training Program; PCP Family Medicine; Referring Provider Nurse Practitioner Family; Visit Provider Nurse Practitioner Family
DX: R05.9 Cough, unspecified (principal)
CPT/HCPCS: 71046

== ENCOUNTER → 2024-01-10 16:32 | Outpatient (CLI) | payer MEDICARE, OTHER, SELFPAY ==
[2024-01-10 17:49] LABS: Free T4, Direct Thyroxine 1.22 ng/dL (0.78-2.19)
[2024-01-10 18:04] LABS: Thyroid Stimulating Hormone 0.167 uIU/mL (0.47-4.68)
[2024-01-10 18:22] LABS: Vitamin B12 410 pg/mL (239-931)
== END ==
PROVIDERS: PCP Family Medicine; Referring Provider Family Medicine; Visit Provider Family Medicine
DX: E03.9 Hypothyroidism, unspecified (principal); E78.5 Hyperlipidemia, unspecified; R79.89 Other specified abnormal findings of blood chemistry
CPT/HCPCS: 36415; 82607; 84439; 84443

== ENCOUNTER → 2024-05-16 16:02 | Outpatient (CLI) | payer MEDICARE, OTHER, SELFPAY ==
--- NOTE | 2024-05-16 16:04 | DI.RAD.S_ITS ---
PROCEDURE: XR HIP W PEL IF DONE MODESTO MIN 4V INDICATIONS: pain x 1 mo back and hips TECHNIQUE: AP pelvis with lateral view(s) of the bilateral hip(s). COMPARISON: [facility], , XR HIP W PEL IF DONE BILAT 2V, 05/17/2022, 11:35. FINDINGS: Diffuse osseous demineralization. Status post left hip total arthroplasty without hardware complication. Moderate right hip osteoarthritis, similar to 05/17/2022. Mild sacroiliac osteoarthritis. Lower lumbar osteoarthrosis. No acute fracture or dislocation. IMPRESSION: 1. Similar moderate right hip osteoarthritis. 2. Left hip total arthroplasty without hardware complication. Dictated by: Jimbo Heath M.D. on 05/16/2024 at 20:33 Approved by: Jimbo Heath M.D. on 05/16/2024 at 20:34
--- NOTE | 2024-05-16 16:04 | DI.RAD.S_ITS ---
PROCEDURE: XR LUMBAR SPINE 2-3V INDICATIONS: pain x 1 mo back and hips TECHNIQUE: 3 views of the lumbar spine were acquired. COMPARISON: None. FINDINGS: Five non rib-bearing lumbar vertebrae are present. The vertebral body heights are preserved. Mild levocurvature of the lumbar spine with the apex at L3. Grade 1 anterolisthesis of L4 on L5. Otherwise, the lumbar lordosis is preserved. Multilevel intervertebral disc height loss, severe at L5-S1. Multilevel severe facet arthropathy. Multilevel hypertrophy of the spinous processes. Partially identified left hip arthroplasty. Mild left sacroiliac osteoarthritis. IMPRESSION: Multilevel lumbar osteoarthrosis. Dictated by: Jimbo Heath M.D. on 05/16/2024 at 20:29 Approved by: Jimbo Heath M.D. on 05/16/2024 at 20:32
== END ==
LOC: RAD 16:04
PROVIDERS: PCP Family Medicine; Referring Provider Physician Assistant; Visit Provider Physician Assistant
DX: S39.012A Strain of muscle, fascia and tendon of lower back, initial encounter (principal); M16.0 Bilateral primary osteoarthritis of hip; M47.818 Spondylosis without myelopathy or radiculopathy, sacral and sacrococcygeal region; M47.816 Spondylosis without myelopathy or radiculopathy, lumbar region; X58.XXXA Exposure to other specified factors, initial encounter; Z96.642 Presence of left artificial hip joint
CPT/HCPCS: 72100; 73522

== ENCOUNTER → 2024-05-28 11:22 | Outpatient (CLI) | payer MEDICARE, OTHER, SELFPAY ==
--- NOTE | 2024-05-28 11:24 | DI.RAD.S_ITS ---
PROCEDURE: XR DEXA AXIAL SKELETON INDICATIONS: postmenopausal COMPARISON: [facility], CR, XR LUMBAR SPINE 2-3V, 05/16/2024, 16:08. [facility], CR, XR DEXA AXIAL SKELETON, 03/17/2022, 9:56. [facility], CR, XR DEXA AXIAL SKELETON, 02/26/2020, 9:54. [facility], CR, DEXA AXIAL SKELETON, 02/18/2015, 14:14. FINDINGS: Lumbar Spine: Bone mineral density 1.332 g/cm2, T score 2.1, previously 2.2. Please note that this is likely an overestimate given the osseous sclerosis and abnormal Z scores. Right Hip: Bone mineral density 0.852 g/cm2, T score -0.7, previously -0.2. Right Femoral Neck: Bone mineral density 0.789 g/cm2, T score -0.5, previously -0.9. Left Forearm: Bone mineral density 0.612 g/cm2, T score 0.6. Fracture Risk Calculation (when applicable): 10-year fracture risk of a major osteoporotic fracture 7.1 percent and of a hip fracture 1.3 percent. (T score greater or equal to -1.0 to: NORMAL) (T score from -1.1 to -2.4: OSTEOPENIA) (T score less than or equal to -2.5: OSTEOPOROSIS) IMPRESSION: 1. Normal bone density of the lumbar spine, likely an overestimate. Osteopenia at least by visual estimates. 2. Normal bone density of the right hip and femoral neck. 3. Normal bone density of the left forearm. Follow-up guidelines as follows: Osteoporosis: Consider a repeat DEXA and Vertebral Fracture Assessment (VFA) exam in 2 years or sooner if medically necessary, to reassess this patient's status. Osteopenia: Consider a repeat DEXA in 2-3 years to reassess this patient's status, or if there is a new clinical indication. Normal: Consider a repeat DEXA in 5 years or sooner, or if there is a new clinical indication. All treatment decisions require clinical judgment and consideration of individual patient factors, including patient preferences, comorbidities, previous drug use, risk factors not captured in the FRAX model (e.g., frailty, falls, vitamin D deficiency, increased bone turnover, interval significant decline in bone density ) and possible under- or over-estimation of fracture risk by FRAX. In addition, the NOF Guide recommends that FDA-approved medical therapies be considered in postmenopausal women and men age >= 50 years with a: * Hip or vertebral (clinical or morphometric) fracture * T-score of <=-2.5 at the spine or hip * Ten-year fracture probability by FRAX of >= 3% for hip fracture or >=20% for major osteoporotic fracture. People with diagnosed cases of osteoporosis or at high risk for fracture should have regular bone mineral density tests. For patients eligible for Medicare, routine testing is allowed once every 2 years. The testing frequency can be increased to one year for patients who have rapidly progressing disease, those who are receiving or discontinuing medical therapy to restore bone mass, or have additional risk factors. Dictated by: Jimbo Heath M.D. on 05/28/2024 at 15:52 Approved by: Jimbo Heath M.D. on 05/28/2024 at 15:55
== END ==
PROVIDERS: Family Provider Family Medicine; PCP Family Medicine; Referring Provider Family Medicine; Visit Provider Family Medicine
DX: Z78.0 Asymptomatic menopausal state (principal)
CPT/HCPCS: 77080; 77081

== ENCOUNTER → 2024-06-07 09:07 | Outpatient (CLI) | payer MEDICARE, OTHER, SELFPAY ==
--- NOTE | 2024-06-07 09:10 | DI.MRI.S_ITS ---
PROCEDURE: MR LUMBAR SPINE WO CON INDICATIONS: continued back pain TECHNIQUE: Noncontrast sagittal T1 spin echo and T2 fast echo, sagittal STIR, and T2 fast spin echo through the lumbar spine. In cases with scoliosis, additional coronal T2 fast spin echo may be performed. COMPARISON: [facility], CR, XR LUMBAR SPINE 2-3V, 05/16/2024, 16:08. FINDINGS: Image quality: This examination is limited by involuntary motion artifact. Alignment and Curvature: Mild levoconvex scoliotic curvature is noted. There is mild retrolisthesis seen at L1-L2. Mild grade 1 anterolisthesis is seen at L3-L4. Grade 1 anterolisthesis is seen at L4-L5. No associated pars defects are detected. Mild retrolisthesis is seen at L5-S1. Bone Marrow: Marrow is of normal overall signal. No acute vertebral body compression fractures. Spinal Cord: Conus medullaris terminates at the L1 level. Visualized cord demonstrates normal signal and size. Paraspinous Soft Tissues: No paravertebral masses. Several levels of bridging endplate osteophytes can be seen. T11-T12: Moderate loss of disc height is seen. Loss of disc signal is seen. Moderate disc bulge is seen, with a central/right disc osteophyte extrusion, with superior migration of the disc material, as on series 2, image 9. There is moderate to severe bilateral neural foraminal narrowing seen, with an associated degree of compression seen upon the exiting nerve roots. Moderate to severe central canal narrowing is seen, with mass effect upon the distal spinal cord. T12-L1: At least moderate loss of disc height and disc signal can be seen. Reactive marrow endplate changes are seen, which are hyperintense on T1-weighted and T2-weighted imaging and most consistent with fatty metaplasia (Modic type II changes). Moderate disc bulge is seen, which is eccentric to the left. Mild to moderate facet hypertrophy is seen. Moderate bilateral neural foraminal narrowing can be seen, left worse than right. Moderate central canal narrowing is seen. L1-L2: At least moderate loss of disc height and disc signal can be seen. At least moderate disc bulge is seen, with a central disc osteophyte protrusion. Moderate bilateral neural foraminal narrowing is seen. There is moderate to severe bilateral neural foraminal narrowing seen, with an associated degree of compression seen upon the exiting nerve roots. At least moderate central canal narrowing is seen at this level. L2-L3: Moderate loss of disc height is seen. Loss of disc signal is seen. Moderate generalized disc bulge is seen. There is at least moderate right-sided and moderate left-sided facet hypertrophy. There is at least moderate left-sided and moderate to severe right-sided neural foraminal narrowing. There is a degree of compression seen upon the exiting right L2 nerve root. At least moderate central canal narrowing is seen. L3-L4: Okrh-yd-afskphsh loss of disc height and disc signal can be seen. Moderate generalized disc bulge is seen. There is a superimposed central disc protrusion. Moderate to prominent facet hypertrophy is seen. There is at least moderate bilateral neural foraminal narrowing seen. There is a degree of compression seen upon the exiting nerve roots. Moderate to severe central canal narrowing is seen, as on series 3, image 20. L4-L5: Jyaj-gq-rdakrido loss of disc height and disc signal can be seen. Moderate disc bulge is seen, which is eccentric to the right. There is a central/right disc protrusion. At least moderate facet hypertrophy can be seen. Moderate to severe bilateral neural foraminal narrowing is seen. Moderate to severe central canal narrowing is seen. L5-S1: Moderate to severe loss of disc height and disc signal can be seen. Reactive marrow endplate changes are seen, which demonstrate mixed T1 weighted and T2-weighted signal, and are attributed to a combination of edema and fatty metaplasia (Modic type I and Modic type II changes). At least moderate disc bulge is seen, with a central disc osteophyte protrusion. Moderate facet hypertrophy can be seen, left worse than right. There is moderate to severe bilateral neural foraminal narrowing seen, with an associated degree of compression seen upon the exiting nerve roots. Moderate central canal narrowing is seen. IMPRESSION: Multiple levels of significant spine degenerative change can be seen. At the T11-T12 level, there is a central right disc extrusion seen. Dictated by: John Carson M.D. on 06/07/2024 at 16:41 Approved by: John Carson M.D. on 06/07/2024 at 16:48
[2024-06-07 10:49] LABS: Add Manual Diff / Slide Review NO; Basophils Absolute Auto 0 /uL (0-100); Basophils Percent Auto 0.3 % (0-2); Eosinophils Absolute Auto 100 /uL (0-450); Eosinophils Percent Auto 0.8 % (2-4); Hematocrit 44.8 % (36-46); Hemoglobin 15.4 g/dL (12.0-16.0); Lymphocytes Absolute Auto 2100 /uL (1100-4500); Lymphocytes Percent Auto 21.7 % (25-40); Mean Corpuscular HGB Conc 34.4 % (30-36); Mean Corpuscular Hemoglobin 32.8 PG (26-34); Mean Corpuscular Volume 95.5 fL (80-100); Monocytes Absolute Auto 700 /uL (0-900); Monocytes Percent Auto 7.4 % (3-14); Neutrophils Absolute Auto 6600 /uL (1500-7000); Neutrophils Percent Auto 69.8 % (50-75); Platelet Count 221 X10^3/uL (150-400); Red Blood Cell Count 4.69 X10^6/uL (4.0-5.2); Red Cell Distribution Width 14.7 % (11.6-14.8); White Blood Cell Count 9.5 X10^3/uL (4.5-11.0)
[2024-06-07 11:13] LABS: Alanine Aminotransferase 17 IU/L (<35); Albumin 4.2 g/dL (3.5-5.0); Albumin Globulin Ratio 1.6 (1.0-2.8); Alkaline Phosphatase 81 U/L (38-126); Aspartate Aminotransferase 21 IU/L (14-36); Bilirubin Total 0.9 mg/dL (0.2-1.3); Blood Urea Nitrogen 22 mg/dL (7-17); Calcium 9.5 mg/dL (8.4-10.2); Carbon Dioxide 26 mmol/L (22-32); Chloride 104 mmol/L (98-107); Cholesterol 302 mg/dL (140-199); Estimated Glomerular Filt Rate > 60 mL/min (>60); Globulin 2.7 g/dL (1.7-4.1); Glucose 91 mg/dL (80-110); HDL Cholesterol 66 mg/dL (40-60); HEMOLYSIS < 15 (0-50); LDL Cholesterol Calculated 210 mg/dL (<100); Potassium 4.2 mmol/L (3.4-5.1); Sodium 137 mmol/L (137-145); Total Protein 6.9 g/dL (6.3-8.2); Triglycerides 132 mg/dL (35-150)
[2024-06-07 11:26] LABS: Free T4, Direct Thyroxine 1.44 ng/dL (0.78-2.19)
[2024-06-07 11:40] LABS: Thyroid Stimulating Hormone 0.768 uIU/mL (0.47-4.68)
== END ==
PROVIDERS: Family Provider Family Medicine; PCP Family Medicine; Referring Provider Family Medicine; Visit Provider Family Medicine
DX: S39.012A Strain of muscle, fascia and tendon of lower back, initial encounter (principal); M47.816 Spondylosis without myelopathy or radiculopathy, lumbar region; M47.817 Spondylosis without myelopathy or radiculopathy, lumbosacral region; M51.24 Other intervertebral disc displacement, thoracic region; M48.04 Spinal stenosis, thoracic region; M48.061 Spinal stenosis, lumbar region without neurogenic claudication; M48.07 Spinal stenosis, lumbosacral region; E78.5 Hyperlipidemia, unspecified; E87.6 Hypokalemia; E03.9 Hypothyroidism, unspecified
CPT/HCPCS: 36415; 72148; 80053; 80061; 84439; 84443; 85025

== ENCOUNTER → 2024-06-21 15:10 | Outpatient (CLI) | payer MEDICARE, OTHER, SELFPAY ==
--- NOTE | 2024-06-21 15:11 | DI.CT.S_ITS ---
PROCEDURE: CT LUNG LOW DOSE SCREENING INDICATIONS: 50+ years smoking TECHNIQUE: Noncontrast 2.0-2.5 mm thick sections acquired from the pulmonary apices to the posterior costophrenic angles. 7 mm thick axial MIP, and 5 mm coronal and sagittal reformats were then acquired. For radiation dose reduction, the following was used: automated exposure control, adjustment of mA and/or kV according to patient size. COMPARISON: [facility], CT, CT LUNG LOW DOSE SCREENING, 05/31/2023, 10:44. FINDINGS: Image quality: Diagnostic Lungs and pleura: Mild background emphysematous changes. There is no overtly suspicious pulmonary nodule. No overtly suspicious pulmonary nodules are identified in the parenchyma, for example in the right 6/41, not large enough to foreign exchange student coordinator. However, in the left lower lobe, there is an endobronchial nodule that appears new, measuring 5 millimeters (3/188) Mediastinum, heart, and esophagus: No hiatal hernia. Normal heart size. Coronary calcifications. No pathologic lymphadenopathy by size criteria. Chest wall and thyroid: Thyroid bed postsurgical changes. Chest wall is unremarkable. Upper abdomen: No gross abnormality on these low-dose noncontrast images Bones: There are degenerative changes. IMPRESSION: Multiple small pulmonary nodules, the most significant is in the left lower lobe measuring 5 millimeters within a segmental bronchus. This is at a low suspicion for malignancy, favoring a mucous plug, however short interval follow-up recommended. LUNG-RADS 4A; low-dose chest CT recommended in 3 months Other findings above. Dictated by: Frederick Zelaya M.D. on 06/22/2024 at 11:59 Approved by: Frederick Zelaya M.D. on 06/22/2024 at 12:06
== END ==
PROVIDERS: Family Provider Family Medicine; PCP Family Medicine; Referring Provider Family Medicine; Visit Provider Family Medicine
DX: F17.210 Nicotine dependence, cigarettes, uncomplicated (principal); R91.8 Other nonspecific abnormal finding of lung field
CPT/HCPCS: 71271

== ENCOUNTER 2024-08-13 11:30 | Outpatient (RCR) | payer MEDICARE, OTHER, SELFPAY ==
--- NOTE | 2024-06-13 16:02 | PT.OIE ---
Current Diagnoses Bilateral primary osteoarthritis of hip (06/13/24) Spondylosis without myelopathy or radiculopathy, lumbar region (06/13/24) Difficulty in walking, not elsewhere classified (06/13/24) Abnormal posture (06/13/24) Strain of muscle, fascia and tendon of lower back, initial encounter (06/13/24) Past Medical History (Last Reviewed 06/05/24 @ 09:56 by Shyam Martinez DO) Colon polyps COPD (chronic obstructive pulmonary disease) Encounter for wellness examination in adult Foot pain (2004) History of thyroid cancer Hormone replacement therapy Internal hemorrhoids Lumbar strain Macular degeneration (2012) Malignant neoplasm of thyroid gland Medicare annual wellness visit, subsequent Tobacco use disorder Past Surgical History (Last Reviewed 06/05/24 @ 09:56 by Shyam Martinez DO) Anesthesia History of colonoscopy with polypectomy (06/27/15) History of thyroidectomy (1994) Status post ovarian cystectomy (1982) Visit Care Team Role Provider Type Shyam Martinez DO Family Provider Physician Primary Care Provider Specialty: Family Practice Address: [address] [place] [address], [facility] Email: [email or web address] [email or web address] PA-C Attending Provider Advanced Cms Expert Referring Provider Specialty: Medical Wound Care Address: [address] [place] [address], [facility] Email: [email or web address] Physical Therapy Initial Evaluation PT-OP-A Visit Information Start: 05/28/24 10:36 Freq: Status: Active Protocol: Document 06/13/24 11:36 [facility] (Rec: 06/13/24 12:32 [facility] [id number]) Out-Patient Physical Therapy Visit Information Visit Information Visit Type Initial Evaluation Visit Start Time 11:35 Visit Stop Time 12:20 Visit Number 1 Number of GUARD SUPERVISOR Visits 0 PT-OP-B Current Condition Start: 05/28/24 10:36 Freq: Status: Active Protocol: Document 06/13/24 11:36 [facility] (Rec: 06/13/24 12:32 [facility] [id number]) Current Condition History of Current Condition Onset Date mid Nov Current Complaints LBP, leg pain and weakness History of Current Condition Pt had L NIKA 1.5 year ago. 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 She was doing everything regular at home and started feeling like karl wasn't getting as much exercise and tried some of her old PT exercises and was doing a lot of sit to stands. Then her LB to ant hips and nto med thigh. She went to see doctor and he thought is was inflamed pelvic flexor muscles and gave her a shot in her bottom. helped for 2 days She went on a 1 week trip and had to help her walk with a car. Rajesh came back, started on course of steroids (felt better at day 2) then after the 6 days went back to back. She was also taking anti inflamatory meds and tramadol . She is still takng both of these along w/naproxen. Xray has shown degeneration in LB. R hip has moderate deteriation . Did stop alchol last september and lost 25 lbs. She feels like she lost muscle. Getting numb through L leg down through toes on L leg. Encouraged to see spine doctor and has an appt for Jul 10 w/a spine docor (non operative). Hoping to consider injection. Encouraged by all doctors she has seen so far, that PT will help. Did not have back pain prior to this. Was fully functional to get up/down from the ground. She has fallen 2x d/t legs giving out even though she is careful. One was new years yoli and karl was straightening the table and had one hand on the table and reached and leg gave out. She was at dinner and was holding husbands arm and when did small step down lgs gave out. Doing exercsies from doctor and they don't inc pain Prior Treatments and Tests MRI IMPRESSION: Multiple levels of significant spine degenerative change can be seen. At the T11-T12 level, there is a central right disc extrusion seen. 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 PT-OP-C Subjective Start: 05/28/24 10:36 Freq: Status: Active Protocol: Document 06/13/24 11:36 [facility] (Rec: 06/13/24 12:32 [id number] Patient Questionnaires Lower Extremity Functional Scale LEFS Score 4 Oswestry Low Back Index Oswestry Score 31/50 OP-PT Pain Assessment Location LBP Pain Location Details LBP around hips to groin and med thigh Description With Movement Frequency Frequent Radiating Location numbness lat leg to ant verma toes Pain Aggravating Factors Standing,Walking,Stair Climbing Other Pain Aggravating Factors rolling, bending in standing, sit to stand Pain Alleviating Factors Cold,Heat,Sitting PT-OP-G Mobility & Gait Start: 05/28/24 10:36 Freq: Status: Active Protocol: Document 06/13/24 11:36 [facility] (Rec: 06/13/24 12:32 [id number]) OP Gait Assessment Comments Gait Comments dec stance time B w/SPC and dec foot clearance and asks to hold PT arm w/FWW after PT edu more even gait and improved foot clearance and less evidence for imbalance PT-OP-J Posture/Palpation/Skin Start: 05/28/24 10:36 Freq: Status: Active Protocol: Document 06/13/24 11:36 [facility] (Rec: 06/13/24 12:32 [id number]) Posture Evaluation Comments Posture Comments L pelvic shear, L iliac crest higher, R torso rotation PT-OP-K Range of Motion Start: 05/28/24 10:36 Freq: Status: Active Protocol: Document 06/13/24 11:36 [facility] (Rec: 06/13/24 15:41 [facility] [id number]) Lumbar Spine Range of Motion Lumbar Spine Active Percentage Flexion 20 Extension 5 Lateral Flexion Left 20 Lateral Flexion Right 20 ROM Limitations Pain PT-OP-L Special Tests Start: 05/28/24 10:36 Freq: Status: Active Protocol: Document 06/13/24 11:36 [facility] (Rec: 06/13/24 12:32 [facility] [id number]) Special Tests Lumbar Spine Special Tests Slump Test Results positive L PT-OP-M Strength Start: 05/28/24 10:36 Freq: Status: Active Protocol: Document 06/13/24 11:36 [facility] (Rec: 06/13/24 12:32 [facility] [id number]) Hip Strength Hip Manual Muscle Testing Right Flexion (L2) 3+ Fair+ External Rotation 3 Fair Internal Rotation 3+ Fair+ Left Flexion (L2) 3+ Fair+ External Rotation 3+ Fair+ Internal Rotation 4+ Good+ Knee Strength Knee Manual Muscle Testing Right Flexion (S2) 4 Good Extension (L3) 4 Good Left Flexion (S2) 3+ Fair+ Extension (L3) 3+ Fair+ Ankle/Foot Strength Ankle and Foot Manual Muscle Testing Right Dorsiflexion (L4) 3+ Fair+ Plantarflexion (S1) 4 Good Left Dorsiflexion (L4) 3 Fair Plantarflexion (S1) 3+ Fair+ Comments PF tested seated B PT-OP-Q Treatments Start: 05/28/24 10:36 Freq: Status: Active Protocol: Document 06/13/24 11:36 [facility] (Rec: 06/13/24 12:32 [facility] [id number]) Gait Training Gait Activity walker Comments 8 min: edu for set up of height, work on gait w/4ww and edu on breaks and w/FWW 40ft trial each then 100ft w/FWW cues to keep close Self-Care/Home Management Treatment Education Other Education 15 min: discussed w/pt rehab potential and that it will be important to see w/ortho prior to chiro (pt was asking about this) and acupuncutre and noted that should be okay to try prior to ortho appt. Edu w /PT that we do not want to inc pain. Edu on importance of walker vs cane to unload back and LEs. Also, encouraged to cont to ice and heat for pain relief. Encouraged to cont the same exercises from physician at this time. PT-OP-T Assessment and Plan Start: 05/28/24 10:36 Freq: Status: Active Protocol: Document 06/13/24 11:36 [facility] (Rec: 06/13/24 12:32 [facility] [id number]) Physical Therapy Assessment Rehab Potential Rehabilitation Potential Good Evaluation Complexity Number of Personal Factors/Comorbidities 3 or More Number of Body Systems Impaired 4 or More Clinical Presentation at Evaluation Unstable Impairments Impairments Activity Tolerance,Balance, Coordination,Functional Activities,Functional Mobility ,Gait,Pain,Posture,ROM,Soft Tissue Mobility,Strength, Transfers Goals gait Short Term Goal (STG) Pt will be able to amb safely with SPC STG Duration 07/27 Shelter Goal (LTG) Pt will be able to amb safely without AD w/o significant gait deviations. 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 LTG Duration 09/05 Assessment Summary Assessment Pt presents w/2 months ago onset of significant back pain that radiates to ant hips and adductor region and pt has lat LLE numbness with inability to walk w/o AD now. 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 She is typically active so this is a big chagne to her lifestyle. She does have multilevel central canal and forminal narrowing B, with positive slump on L side. She has signifcant L sided LE weakness and does have signficantly decreased spinal ROM. She would benefit from skilled PT to improve mobility and return to more active function. Physical Therapy Plan Frequency and Duration Frequency of Treatment 2x/Week Duration of treatment (weeks) 12 Plan of Care Start Date 06/13/24 Plan of Care End Date 09/05/24 Therapeutic Interventions Therapeutic Interventions Balance Training,Gait Training ,Home Exercise Program,Joint Mobilizations,Manual Therapy, Neuromuscular Re-education, Patient/Caregiver Education, Self-Care/Home Management,Soft Tissue Mobilization,Taping, Therapeutic Activities, Therapeutic Exercises Modalities Cold Pack/Ice Massage,Electric Stimulation,Hot Packs, Infrared Therapy,Traction- Mechanical,Ultrasound Next Visit Focus/Plan Next Note Type Treatment Note Next Visit Plan reflex testing look at performance of HEP from doctor and adjust as needed; manual to improve hip, pelvis and spinal mobility gentley to start and soft tissue to back and hips
--- NOTE | 2024-06-20 14:11 | PT.OTN ---
Addendum entered and electronically signed by Sara Eduardo, PT 06/20/24 14:14: 12 min: IFC stim to LS in s/l w/MHP Original Note: Current Diagnoses Bilateral primary osteoarthritis of hip (06/20/24) Spondylosis without myelopathy or radiculopathy, lumbar region (06/20/24) Difficulty in walking, not elsewhere classified (06/20/24) Abnormal posture (06/20/24) Strain of muscle, fascia and tendon of lower back, initial encounter (06/20/24) Physical Therapy Treatment Note PT-OP-A Visit Information Start: 05/28/24 10:36 Freq: Status: Active Protocol: Document 06/20/24 11:32 [facility] (Rec: 06/20/24 14:11 [facility] [id number]) Out-Patient Physical Therapy Visit Information Visit Information Visit Type Treatment Note Visit Start Time 11:35 Visit Stop Time 12:28 Visit Number 2 Number of INFORMATION MANAGEMENT OFFICER Visits 0 PT-OP-B Current Condition Start: 05/28/24 10:36 Freq: Status: Active Protocol: Document 06/13/24 11:36 [facility] (Rec: 06/13/24 12:32 [facility] [id number]) Current Condition History of Current Condition Onset Date mid Mar Current Complaints LBP, leg pain and weakness History of Current Condition Pt had L NIKA 1.5 year ago. 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 She was doing everything regular at home and started feeling like seh wasn't getting as much exercise and tried some of her old PT exercises and was doing a lot of sit to stands. Then her LB to ant hips and nto med thigh. She went to see doctor and he thought is was inflamed pelvic flexor muscles and gave her a shot in her bottom. helped for 2 days She went on a 1 week trip and had to help her walk with a car. Rajesh came back, started on course of steroids (felt better at day 2) then after the 6 days went back to back. She was also taking anti inflamatory meds and tramadol . She is still takng both of these along w/naproxen. Xray has shown degeneration in LB. R hip has moderate deteriation . Did stop alchol last september and lost 25 lbs. She feels like she lost muscle. Getting numb through L leg down through toes on L leg. Encouraged to see spine doctor and has an appt for Jul 10 w/a spine docor (non operative). Hoping to consider injection. Encouraged by all doctors she has seen so far, that PT will help. Did not have back pain prior to this. Was fully functional to get up/down from the ground. She has fallen 2x d/t legs giving out even though she is careful. One was new years yoli and seh was straightening the table and had one hand on the table and reached and leg gave out. She was at dinner day and was holding husbands arm and when did small step down lgs gave out. Doing exercsies from doctor and they don't inc pain Prior Treatments and Tests MRI IMPRESSION: Multiple levels of significant spine degenerative change can be seen. At the T11-T12 level, there is a central right disc extrusion seen. 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 PT-OP-C Subjective Start: 05/28/24 10:36 Freq: Status: Active Protocol: Document 06/20/24 11:32 [facility] (Rec: 06/20/24 14:11 [facility] [id number]) OP-PT Subjective Patient Comments Patient Comments Pt reports she got a 4WW and it feels much better when walking PT-OP-G Mobility & Gait Start: 05/28/24 10:36 Freq: Status: Active Protocol: Document 06/13/24 11:36 [facility] (Rec: 06/13/24 12:32 [facility] [id number]) OP Gait Assessment Comments Gait Comments dec stance time B w/SPC and dec foot clearance and asks to hold PT arm w/FWW after PT edu more even gait and improved foot clearance and less evidence for imbalance PT-OP-J Posture/Palpation/Skin Start: 05/28/24 10:36 Freq: Status: Active Protocol: Document 06/13/24 11:36 [facility] (Rec: 06/13/24 12:32 [facility] [id number]) Posture Evaluation Comments Posture Comments L pelvic shear, L iliac crest higher, R torso rotation PT-OP-K Range of Motion Start: 05/28/24 10:36 Freq: Status: Active Protocol: Document 06/13/24 11:36 [facility] (Rec: 06/13/24 15:41 [facility] [id number]) Lumbar Spine Range of Motion Lumbar Spine Active Percentage Flexion 20 Extension 5 Lateral Flexion Left 20 Lateral Flexion Right 20 ROM Limitations Pain PT-OP-L Special Tests Start: 05/28/24 10:36 Freq: Status: Active Protocol: Document 06/13/24 11:36 [facility] (Rec: 06/13/24 12:32 [facility] [id number]) Special Tests Lumbar Spine Special Tests Slump Test Results positive L PT-OP-M Strength Start: 05/28/24 10:36 Freq: Status: Active Protocol: Document 06/13/24 11:36 [facility] (Rec: 06/13/24 12:32 [facility] [id number]) Hip Strength Hip Manual Muscle Testing Right Flexion (L2) 3+ Fair+ External Rotation 3 Fair Internal Rotation 3+ Fair+ Left Flexion (L2) 3+ Fair+ External Rotation 3+ Fair+ Internal Rotation 4+ Good+ Knee Strength Knee Manual Muscle Testing Right Flexion (S2) 4 Good Extension (L3) 4 Good Left Flexion (S2) 3+ Fair+ Extension (L3) 3+ Fair+ Ankle/Foot Strength Ankle and Foot Manual Muscle Testing Right Dorsiflexion (L4) 3+ Fair+ Plantarflexion (S1) 4 Good Left Dorsiflexion (L4) 3 Fair Plantarflexion (S1) 3+ Fair+ Comments PF tested seated B PT-OP-Q Treatments Start: 05/28/24 10:36 Freq: Status: Active Protocol: Document 06/20/24 11:32 [facility] (Rec: 06/20/24 14:11 [facility] [id number]) Therapeutic Exercises Supine Exercises pelvic tilt Reps/Minutes 3 Comments good form LTR Side bilateral Reps/Minutes 10 Comments cues core to pull knees back towards chest mini crunch Reps/Minutes 10 Comments small comfortable range stretch Supine Exercise Name 1. SKTC 2. piriformis 3. DKTC 4. figure 4 pull to chest Side bilateral Reps/Minutes 30 sec ea Comments stopped SKTC d/t no stretch hip abd Supine Exercise Name opp knee bent Side bilateral Reps/Minutes 12 Comments cues core Sidelying Exercises clamshell Side bilateral Reps/Minutes 12 Comments cues core hip abd Side left Reps/Minutes 2 Comments stopped d/t pain and weakness Other Exercises cat/cow Other Exercise Name attempted both forearms and knees and on hands and kenes Reps/Minutes 3 ea Comments better on forearms and knees d /t distractive force whe in ext Manual Therapy Treatment Consent Patient gave verbal consent for manual Yes treatment Soft Tissue Mobilization spine Body Location L along SI, ES, QL Mobilization Type Rolling Intensity/Depth Moderate Body Position Sidelying glutes Body Location L piriformis and sup glutes Mobilization Type Rolling Intensity/Depth Moderate Body Position Sidelying Joint Mobilizations innominate Joint L add c/r PT-OP-T Assessment and Plan Start: 05/28/24 10:36 Freq: Status: Active Protocol: Document 06/20/24 11:32 [facility] (Rec: 06/20/24 14:11 [facility] [id number]) Physical Therapy Assessment Goals gait Short Term Goal (STG) Pt will be able to amb safely with SPC STG Duration 07/27 Account Consultant Goal (LTG) Pt will be able to amb safely without AD w/o significant gait deviations. 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 LTG Duration 09/05 Assessment Summary Assessment Pt did well with exercises given by provider overall w/ min cues and made adjustment of instead of SKTC change to piriformis knee to opp chest. She had improved post dep L pelvis after manual. unable to do s/l hip abd d/t weakness and pain Physical Therapy Plan Next Visit Focus/Plan Next Note Type Treatment Note Next Visit Plan work on hip strengthening manual to pelvis and spinal gently and STM to back and hips and n pathway L
--- NOTE | 2024-06-22 14:15 | PT.OTN ---
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 She was doing everything regular at home and started feeling like karl wasn't getting as much exercise and tried some of her old PT exercises and was doing a lot of sit to stands. Then her LB to ant hips and nto med thigh. She went to see doctor and he thought is was inflamed pelvic flexor muscles and gave her a shot in her bottom. helped for 2 days She went on a 1 week trip and had to help her walk with a car. Rajesh came back, started on course of steroids (felt better at day 2) then after the 6 days went back to back. She was also taking anti inflamatory meds and tramadol . She is still takng both of these along w/naproxen. Xray has shown degeneration in LB. R hip has moderate deteriation . Did stop alchol last september and lost 25 lbs. She feels like she lost muscle. Getting numb through L leg down through toes on L leg. Encouraged to see spine doctor and has an appt for Jul 10 w/a spine docor (non operative). Hoping to consider injection. Encouraged by all doctors she has seen so far, that PT will help. Did not have back pain prior to this. Was fully functional to get up/down from the ground. She has fallen 2x d/t legs giving out even though she is careful. One was new years yoli and seh was straightening the table and had one hand on the table and reached and leg gave out. She was at dinner th day and was holding husbands arm and when did small step down lgs gave out. Doing exercsies from doctor and they don't inc pain Prior Treatments and Tests MRI IMPRESSION: Multiple levels of significant spine degenerative change can be seen. At the T11-T12 level, there is a central right disc extrusion seen. 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 She currently has tingling/numbness into L toes and slightly into R toes. PT-OP-G Mobility & Gait Start: 05/28/24 10:36 Freq: Status: Active Protocol: Document 06/13/24 11:36 [facility] (Rec: 06/13/24 12:32 [facility] [id number]) OP Gait Assessment Comments Gait Comments dec stance time B w/SPC and dec foot clearance and asks to hold PT arm w/FWW after PT edu more even gait and improved foot clearance and less evidence for imbalance PT-OP-J Posture/Palpation/Skin Start: 05/28/24 10:36 Freq: Status: Active Protocol: Document 06/13/24 11:36 [facility] (Rec: 06/13/24 12:32 [facility] [id number]) Posture Evaluation Comments Posture Comments L pelvic shear, L iliac crest higher, R torso rotation PT-OP-K Range of Motion Start: 05/28/24 10:36 Freq: Status: Active Protocol: Document 06/13/24 11:36 [facility] (Rec: 06/13/24 15:41 [facility] [id number]) Lumbar Spine Range of Motion Lumbar Spine Active Percentage Flexion 20 Extension 5 Lateral Flexion Left 20 Lateral Flexion Right 20 ROM Limitations Pain PT-OP-L Special Tests Start: 05/28/24 10:36 Freq: Status: Active Protocol: Document 06/13/24 11:36 [facility] (Rec: 06/13/24 12:32 [facility] [id number]) Special Tests Lumbar Spine Special Tests Slump Test Results positive L PT-OP-M Strength Start: 05/28/24 10:36 Freq: Status: Active Protocol: Document 06/13/24 11:36 [facility] (Rec: 06/13/24 12:32 [facility] [id number]) Hip Strength Hip Manual Muscle Testing Right Flexion (L2) 3+ Fair+ External Rotation 3 Fair Internal Rotation 3+ Fair+ Left Flexion (L2) 3+ Fair+ External Rotation 3+ Fair+ Internal Rotation 4+ Good+ Knee Strength Knee Manual Muscle Testing Right Flexion (S2) 4 Good Extension (L3) 4 Good Left Flexion (S2) 3+ Fair+ Extension (L3) 3+ Fair+ Ankle/Foot Strength Ankle and Foot Manual Muscle Testing Right Dorsiflexion (L4) 3+ Fair+ Plantarflexion (S1) 4 Good Left Dorsiflexion (L4) 3 Fair Plantarflexion (S1) 3+ Fair+ Comments PF tested seated B PT-OP-Q Treatments Start: 05/28/24 10:36 Freq: Status: Active Protocol: Document 06/22/24 13:16 NBM (Rec: 06/22/24 13:52 [facility] [id number]) Therapeutic Exercises Prone Exercises extension Prone Exercise Name 5'>5' on elbows Comments radicular symptoms improve Other Exercises cat/cow Other Exercise Name forearms and knees Reps/Minutes 3 ea Comments better on forearms and knees d /t distractive force whe in ext Gait Training Gait Activity walker Description blue 4WW Level of Assistance SBA Surface carpet, tile Distance/Duration 40 ft Comments cues for proximation Manual Therapy Treatment Consent Patient gave verbal consent for manual Yes treatment Soft Tissue Mobilization spine Body Location L along SI, ES, QL Mobilization Type Rolling Intensity/Depth Moderate Body Position Sidelying glutes Body Location L piriformis and sup glutes Mobilization Type Rolling Intensity/Depth Moderate Body Position Sidelying PT-OP-R Modalities Start: 05/28/24 10:36 Freq: Status: Active Protocol: Document 06/22/24 13:16 NBM (Rec: 06/22/24 13:52 [facility] [id number]) Electric Stimulation Electric Stimulation Interferential Current (IFC) Body Location LS Target/Sweep Sweep High/Low High Patient Position Sidelying Combined With Heat/Cold Hot Pack PT-OP-T Assessment and Plan Start: 05/28/24 10:36 Freq: Status: Active Protocol: Document 06/22/24 13:16 [facility] (Rec: 06/22/24 13:52 [facility] [id number]) Physical Therapy Assessment Goals gait Short Term Goal (STG) Pt will be able to amb safely with SPC STG Duration 07/27 Custom Shoe Designer And Maker Goal (LTG) Pt will be able to amb safely without AD w/o significant gait deviations. 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 LTG Duration 09/05 Assessment Summary Assessment Argelia presents with 4WW and requires cues for proximation with ambulation. She is educated on purpose of prone extension ex and appropriate progression. She requires initial cueing for cat/camel but demos improved form with repetition. Palpable tension to L lumbar paraspinals improves with soft tissue mobilization. Physical Therapy Plan Frequency and Duration Frequency of Treatment 2x/Week Duration of treatment (weeks) 12 Plan of Care Start Date 06/13/24 Plan of Care End Date 09/05/24 Therapeutic Interventions Therapeutic Interventions Balance Training,Gait Training ,Home Exercise Program,Joint Mobilizations,Manual Therapy, Neuromuscular Re-education, Patient/Caregiver Education, Self-Care/Home Management,Soft Tissue Mobilization,Taping, Therapeutic Activities, Therapeutic Exercises Modalities Cold Pack/Ice Massage,Electric Stimulation,Hot Packs, Infrared Therapy,Traction- Mechanical,Ultrasound Next Visit Focus/Plan Next Note Type Treatment Note Next Visit Plan work on hip strengthening manual to pelvis and spinal gently and STM to back and hips and n pathway L
--- NOTE | 2024-06-26 17:07 | PT.OTN ---
Current Diagnoses Bilateral primary osteoarthritis of hip (06/26/24) Spondylosis without myelopathy or radiculopathy, lumbar region (06/26/24) Difficulty in walking, not elsewhere classified (06/26/24) Abnormal posture (06/26/24) Strain of muscle, fascia and tendon of lower back, initial encounter (06/26/24) Physical Therapy Treatment Note PT-OP-A Visit Information Start: 05/28/24 10:36 Freq: Status: Active Protocol: Document 06/26/24 10:47 NBM (Rec: 06/26/24 11:39 [facility] [id number]) Out-Patient Physical Therapy Visit Information Visit Information Visit Type Treatment Note Visit Start Time 10:48 Visit Stop Time 11:32 Visit Number 4 Number of OFFICE CLERK ROUTINE Visits 2 PT-OP-B Current Condition Start: 05/28/24 10:36 Freq: Status: Active Protocol: Document 06/13/24 11:36 [facility] (Rec: 06/13/24 12:32 [facility] [id number]) Current Condition History of Current Condition Onset Date mid Mar Current Complaints LBP, leg pain and weakness History of Current Condition Pt had L NIKA 1.5 year ago. 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 She was doing everything regular at home and started feeling like seh wasn't getting as much exercise and tried some of her old PT exercises and was doing a lot of sit to stands. Then her LB to ant hips and nto med thigh. She went to see doctor and he thought is was inflamed pelvic flexor muscles and gave her a shot in her bottom. helped for 2 days She went on a 1 week trip and had to help her walk with a car. Rajesh came back, started on course of steroids (felt better at day 2) then after the 6 days went back to back. She was also taking anti inflamatory meds and tramadol . She is still takng both of these along w/naproxen. Xray has shown degeneration in LB. R hip has moderate deteriation . Did stop alchol last september and lost 25 lbs. She feels like she lost muscle. Getting numb through L leg down through toes on L leg. Encouraged to see spine doctor and has an appt for Jul 10 w/a spine docor (non operative). Hoping to consider injection. Encouraged by all doctors she has seen so far, that PT will help. Did not have back pain prior to this. Was fully functional to get up/down from the ground. She has fallen 2x d/t legs giving out even though she is careful. One was new years yoli and seh was straightening the table and had one hand on the table and reached and leg gave out. She was at dinner day and was holding husbands arm and when did small step down lgs gave out. Doing exercsies from doctor and they don't inc pain Prior Treatments and Tests MRI IMPRESSION: Multiple levels of significant spine degenerative change can be seen. At the T11-T12 level, there is a central right disc extrusion seen. 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 L leg is numb all the time into toes, and R a little bit into toes currently. Her spine MD appt is in two weeks. She wonders about dry needling with electrical stimulation because her son had that when he hurt is back and it helped. PT-OP-G Mobility & Gait Start: 05/28/24 10:36 Freq: Status: Active Protocol: Document 06/13/24 11:36 [facility] (Rec: 06/13/24 12:32 [facility] [id number]) OP Gait Assessment Comments Gait Comments dec stance time B w/SPC and dec foot clearance and asks to hold PT arm w/FWW after PT edu more even gait and improved foot clearance and less evidence for imbalance PT-OP-J Posture/Palpation/Skin Start: 05/28/24 10:36 Freq: Status: Active Protocol: Document 06/13/24 11:36 [facility] (Rec: 06/13/24 12:32 [facility] [id number]) Posture Evaluation Comments Posture Comments L pelvic shear, L iliac crest higher, R torso rotation PT-OP-K Range of Motion Start: 05/28/24 10:36 Freq: Status: Active Protocol: Document 06/13/24 11:36 [facility] (Rec: 06/13/24 15:41 [facility] [id number]) Lumbar Spine Range of Motion Lumbar Spine Active Percentage Flexion 20 Extension 5 Lateral Flexion Left 20 Lateral Flexion Right 20 ROM Limitations Pain PT-OP-L Special Tests Start: 05/28/24 10:36 Freq: Status: Active Protocol: Document 06/13/24 11:36 [facility] (Rec: 06/13/24 12:32 [facility] [id number]) Special Tests Lumbar Spine Special Tests Slump Test Results positive L PT-OP-M Strength Start: 05/28/24 10:36 Freq: Status: Active Protocol: Document 06/13/24 11:36 [facility] (Rec: 06/13/24 12:32 [facility] [id number]) Hip Strength Hip Manual Muscle Testing Right Flexion (L2) 3+ Fair+ External Rotation 3 Fair Internal Rotation 3+ Fair+ Left Flexion (L2) 3+ Fair+ External Rotation 3+ Fair+ Internal Rotation 4+ Good+ Knee Strength Knee Manual Muscle Testing Right Flexion (S2) 4 Good Extension (L3) 4 Good Left Flexion (S2) 3+ Fair+ Extension (L3) 3+ Fair+ Ankle/Foot Strength Ankle and Foot Manual Muscle Testing Right Dorsiflexion (L4) 3+ Fair+ Plantarflexion (S1) 4 Good Left Dorsiflexion (L4) 3 Fair Plantarflexion (S1) 3+ Fair+ Comments PF tested seated B PT-OP-Q Treatments Start: 05/28/24 10:36 Freq: Status: Active Protocol: Document 06/26/24 10:47 NBM (Rec: 06/26/24 11:39 [facility] [id number]) Therapeutic Exercises Prone Exercises extension Prone Exercise Name 5'>5' on forearms> hands ( partial cobra) Comments radicular symptoms improve Sidelying Exercises clamshell Sidelying Exercise Name added to HEP Side bilateral Reps/Minutes x10 ea Comments cues core and breath hip abd Sidelying Exercise Name in slight extension (L>R cueing) Side bilateral Reps/Minutes x8 ea Comments no pain reported, heavy cueing for TrA, breathwork, form Other Exercises cat/cow Other Exercise Name forearms and knees Reps/Minutes x10 Comments better on forearms and knees d /t distractive force whe in ext Gait Training Gait Activity walker Description blue 4WW not previously adjusted Comments 8 min: edu for set up of height, work on gait w/4ww, cues to keep close. Manual Therapy Treatment Consent Patient gave verbal consent for manual Yes treatment Soft Tissue Mobilization spine Body Location B along SI, ES, QL Mobilization Type Rolling Intensity/Depth Moderate Body Position Sidelying glutes Body Location L piriformis and sup glutes Mobilization Type Rolling Intensity/Depth Moderate Body Position Sidelying PT-OP-R Modalities Start: 05/28/24 10:36 Freq: Status: Active Protocol: Document 06/26/24 10:47 [facility] (Rec: 06/26/24 11:39 [facility] [id number]) Electric Stimulation Electric Stimulation Interferential Current (IFC) Body Location LS Intensity 35 Target/Sweep Sweep High/Low High Patient Position Sidelying Combined With Heat/Cold Hot Pack Comments 15 min, prone wo pillows PT-OP-T Assessment and Plan Start: 05/28/24 10:36 Freq: Status: Active Protocol: Document 06/26/24 10:47 NB (Rec: 06/26/24 11:39 [facility] [id number]) Physical Therapy Assessment Goals gait Short Term Goal (STG) Pt will be able to amb safely with SPC STG Duration 07/27 Group Home Goal (LTG) Pt will be able to amb safely without AD w/o significant gait deviations. 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 LTG Duration 09/05 Assessment Summary Assessment Argelia requires cues for core and breathwork throughout ex's . She is able to perform sidelying hip abduction x8 painfree bilaterally and dc'd due to fatigue, demoing progress from 06/20/24 attempt when discontinued due to pain and weakness. Palpable tension in lumbar paraspinals and Qls bilaterally improved with STM . Adjusted 4WW height down one level to lowest and pt demos improved upright posture with ambulation and reports improved comfort. Addded s/l clamshells to HEP - HO declined. Pt plans to call in to schedule more visits. Physical Therapy Plan Frequency and Duration Frequency of Treatment 2x/Week Duration of treatment (weeks) 12 Plan of Care Start Date 06/13/24 Plan of Care End Date 09/05/24 Therapeutic Interventions Therapeutic Interventions Balance Training,Gait Training ,Home Exercise Program,Joint Mobilizations,Manual Therapy, Neuromuscular Re-education, Patient/Caregiver Education, Self-Care/Home Management,Soft Tissue Mobilization,Taping, Therapeutic Activities, Therapeutic Exercises Modalities Cold Pack/Ice Massage,Electric Stimulation,Hot Packs, Infrared Therapy,Traction- Mechanical,Ultrasound Next Visit Focus/Plan Next Note Type Treatment Note Next Visit Plan work on hip strengthening manual to pelvis and spinal gently and STM to back and hips and n pathway L
--- NOTE | 2024-06-28 11:41 | PT.OTN ---
Current Diagnoses Bilateral primary osteoarthritis of hip (06/28/24) Spondylosis without myelopathy or radiculopathy, lumbar region (06/28/24) Difficulty in walking, not elsewhere classified (06/28/24) Abnormal posture (06/28/24) Strain of muscle, fascia and tendon of lower back, initial encounter (06/28/24) Physical Therapy Treatment Note PT-OP-A Visit Information Start: 05/28/24 10:36 Freq: Status: Active Protocol: Document 06/28/24 10:49 [facility] (Rec: 06/28/24 11:41 [facility] [id number]) Out-Patient Physical Therapy Visit Information Visit Information Visit Type Treatment Note Visit Start Time 10:48 Visit Stop Time 11:30 Visit Number 5 Number of SPEEDBOAT DRIVER Visits 0 PT-OP-B Current Condition Start: 05/28/24 10:36 Freq: Status: Active Protocol: Document 06/13/24 11:36 [facility] (Rec: 06/13/24 12:32 [facility] [id number]) Current Condition History of Current Condition Onset Date mid Mar Current Complaints LBP, leg pain and weakness History of Current Condition Pt had L NIKA 1.5 year ago. 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 She was doing everything regular at home and started feeling like seh wasn't getting as much exercise and tried some of her old PT exercises and was doing a lot of sit to stands. Then her LB to ant hips and nto med thigh. She went to see doctor and he thought is was inflamed pelvic flexor muscles and gave her a shot in her bottom. helped for 2 days She went on a 1 week trip and had to help her walk with a car. Rajesh came back, started on course of steroids (felt better at day 2) then after the 6 days went back to back. She was also taking anti inflamatory meds and tramadol . She is still takng both of these along w/naproxen. Xray has shown degeneration in LB. R hip has moderate deteriation . Did stop alchol last september and lost 25 lbs. She feels like she lost muscle. Getting numb through L leg down through toes on L leg. Encouraged to see spine doctor and has an appt for Jul 10 w/a spine docor (non operative). Hoping to consider injection. Encouraged by all doctors she has seen so far, that PT will help. Did not have back pain prior to this. Was fully functional to get up/down from the ground. She has fallen 2x d/t legs giving out even though she is careful. One was new years yoli and seh was straightening the table and had one hand on the table and reached and leg gave out. She was at dinner day and was holding husbands arm and when did small step down lgs gave out. Doing exercsies from doctor and they don't inc pain Prior Treatments and Tests MRI IMPRESSION: Multiple levels of significant spine degenerative change can be seen. At the T11-T12 level, there is a central right disc extrusion seen. 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 OP-PT Subjective Patient Comments Patient Comments Pt reoprts she thinks pain is better. she is frustrated re: her weakness and inability to move around. PT-OP-G Mobility & Gait Start: 05/28/24 10:36 Freq: Status: Active Protocol: Document 06/13/24 11:36 [facility] (Rec: 06/13/24 12:32 [id number] OP Gait Assessment Comments Gait Comments dec stance time B w/SPC and dec foot clearance and asks to hold PT arm w/FWW after PT edu more even gait and improved foot clearance and less evidence for imbalance PT-OP-J Posture/Palpation/Skin Start: 05/28/24 10:36 Freq: Status: Active Protocol: Document 06/13/24 11:36 [facility] (Rec: 06/13/24 12:32 [id number] Posture Evaluation Comments Posture Comments L pelvic shear, L iliac crest higher, R torso rotation PT-OP-K Range of Motion Start: 05/28/24 10:36 Freq: Status: Active Protocol: Document 06/13/24 11:36 [facility] (Rec: 06/13/24 15:41 [facility] [id number]) Lumbar Spine Range of Motion Lumbar Spine Active Percentage Flexion 20 Extension 5 Lateral Flexion Left 20 Lateral Flexion Right 20 ROM Limitations Pain PT-OP-L Special Tests Start: 05/28/24 10:36 Freq: Status: Active Protocol: Document 06/13/24 11:36 [facility] (Rec: 06/13/24 12:32 [facility] [id number]) Special Tests Lumbar Spine Special Tests Slump Test Results positive L PT-OP-M Strength Start: 05/28/24 10:36 Freq: Status: Active Protocol: Document 06/13/24 11:36 [facility] (Rec: 06/13/24 12:32 [facility] [id number]) Hip Strength Hip Manual Muscle Testing Right Flexion (L2) 3+ Fair+ External Rotation 3 Fair Internal Rotation 3+ Fair+ Left Flexion (L2) 3+ Fair+ External Rotation 3+ Fair+ Internal Rotation 4+ Good+ Knee Strength Knee Manual Muscle Testing Right Flexion (S2) 4 Good Extension (L3) 4 Good Left Flexion (S2) 3+ Fair+ Extension (L3) 3+ Fair+ Ankle/Foot Strength Ankle and Foot Manual Muscle Testing Right Dorsiflexion (L4) 3+ Fair+ Plantarflexion (S1) 4 Good Left Dorsiflexion (L4) 3 Fair Plantarflexion (S1) 3+ Fair+ Comments PF tested seated B PT-OP-Q Treatments Start: 05/28/24 10:36 Freq: Status: Active Protocol: Document 06/28/24 10:49 [facility] (Rec: 06/28/24 11:41 [facility] [id number]) Gym Equipment Shuttle Recovery Bilateral Squats Resistance #50 Shuttle Recovery Platform Stable Reps/Time 10 Therapeutic Exercises Sidelying Exercises clamshell Sidelying Exercise Name HEP Side bilateral Equipment Used L 1 Reps/Minutes x12 ea Comments cues core hip abd Sidelying Exercise Name AROM range she can then AAROM Side bilateral Reps/Minutes 10 Comments cues for core and glute, sligth discomfort w/L Sitting Exercises paloff press Side bilateral Equipment Used L1 band (2 bands) Reps/Minutes 10 ea Comments cues core-noted some mild pain after Standing Exercises hip abd Side bilateral Equipment Used counter hold Reps/Minutes 5 Therapeutic Activity Therapeutic Activity sleep position Reps/Minutes 8 min Comments edu re: pillow support btwn legs and towel under side and pillow under arm in s/l and pillow under thighs in supine Manual Therapy Treatment Consent Patient gave verbal consent for manual Yes treatment Soft Tissue Mobilization spine Body Location L>R along SI, ES, QL Mobilization Type Rolling Intensity/Depth Moderate Body Position Sidelying Joint Mobilizations lumbar Joint L3-5 transverse R w/ ant elevation Grade II innominate Joint L abd c/r PT-OP-R Modalities Start: 05/28/24 10:36 Freq: Status: Active Protocol: Document 06/26/24 10:47 NB (Rec: 06/26/24 11:39 NB [id number]) Electric Stimulation Electric Stimulation Interferential Current (IFC) Body Location LS Intensity 35 Target/Sweep Sweep High/Low High Patient Position Sidelying Combined With Heat/Cold Hot Pack Comments 15 min, prone wo pillows PT-OP-T Assessment and Plan Start: 05/28/24 10:36 Freq: Status: Active Protocol: Document 06/28/24 10:49 [facility] (Rec: 06/28/24 11:41 [facility] [id number]) Physical Therapy Assessment Goals gait Short Term Goal (STG) Pt will be able to amb safely with SPC STG Duration 07/27 [facility] Goal (LTG) Pt will be able to amb safely without AD w/o significant gait deviations. 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 LTG Duration 09/05 Assessment Summary Assessment Pt did well with progression of exercises w/pain noted today only w/s/l abd L and after paloff press w/anchor on R. She has dec strength overall in standing and weakness significant in hip abd limiting her gait. Physical Therapy Plan Frequency and Duration Frequency of Treatment 2x/Week Duration of treatment (weeks) 12 Plan of Care Start Date 06/13/24 Plan of Care End Date 09/05/24 Next Visit Focus/Plan Next Note Type Treatment Note Next Visit Plan work on hip strengthening manual to pelvis and spinal gently and STM to back and hips and n pathway L
--- NOTE | 2024-07-04 12:30 | PT.OTN ---
Physical Therapy Treatment Note PT-OP-A Visit Information Start: 05/28/24 10:36 Freq: Status: Active Protocol: Document 07/04/24 11:30 NBM (Rec: 07/04/24 12:30 NB [id number]) Out-Patient Physical Therapy Visit Information Visit Information Visit Type Treatment Note Visit Start Time 11:30 Visit Stop Time 12:25 Visit Number 6 Number of LIVESTOCK HANDLER Visits 1 Evaluation Information Evaluation Date 06/13/24 PT-OP-B Current Condition Start: 05/28/24 10:36 Freq: Status: Active Protocol: Document 06/13/24 11:36 [facility] (Rec: 06/13/24 12:32 [facility] [id number]) Current Condition History of Current Condition Onset Date mid Mar Current Complaints LBP, leg pain and weakness History of Current Condition Pt had L NIKA 1.5 year ago. 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 She was doing everything regular at home and started feeling like karl wasn't getting as much exercise and tried some of her old PT exercises and was doing a lot of sit to stands. Then her LB to ant hips and nto med thigh. She went to see doctor and he thought is was inflamed pelvic flexor muscles and gave her a shot in her bottom. helped for 2 days She went on a 1 week trip and had to help her walk with a car. Rajesh came back, started on course of steroids (felt better at day 2) then after the 6 days went back to back. She was also taking anti inflamatory meds and tramadol . She is still takng both of these along w/naproxen. Xray has shown degeneration in LB. R hip has moderate deteriation . Did stop alchol last september and lost 25 lbs. She feels like she lost muscle. Getting numb through L leg down through toes on L leg. Encouraged to see spine doctor and has an appt for Jul 10 w/a spine docor (non operative). Hoping to consider injection. Encouraged by all doctors she has seen so far, that PT will help. Did not have back pain prior to this. Was fully functional to get up/down from the ground. She has fallen 2x d/t legs giving out even though she is careful. One was new years yoli and karl was straightening the table and had one hand on the table and reached and leg gave out. She was at dinner th day and was holding husbands arm and when did small step down lgs gave out. Doing exercsies from doctor and they don't inc pain Prior Treatments and Tests MRI IMPRESSION: Multiple levels of significant spine degenerative change can be seen. At the T11-T12 level, there is a central right disc extrusion seen. 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 She still has tingling down into L toes, and sees the doctor on Tuesday in [place]. She had a shot for macular degeneration in her R eye yesterday. PT-OP-Q Treatments Start: 05/28/24 10:36 Freq: Status: Active Protocol: Document 07/04/24 11:30 NBM (Rec: 07/04/24 12:30 NBM [id number]) Gym Equipment Shuttle Recovery Bilateral Squats Resistance #50 Shuttle Recovery Platform Stable Reps/Time 15 Therapeutic Exercises Supine Exercises pelvic tilt Reps/Minutes 5 x 2 breath hold Comments cues for no breathholding hip abd Supine Exercise Name opp knee bent Side bilateral Reps/Minutes 15 Comments cues core Sidelying Exercises clamshell Sidelying Exercise Name HEP Side bilateral Equipment Used L 1 Reps/Minutes x12 ea Comments cues core and breath hip abd Sidelying Exercise Name AROM range she can then AAROM Side bilateral Reps/Minutes 10 Comments cues for core and glute, sligth discomfort w/L Sitting Exercises paloff press Sitting Exercise Name w/ TrA and breathwork Side bilateral Equipment Used L1 band (2 bands) Reps/Minutes 10 ea Comments when anchored on L discomfort noted lumbar R Gait Training Gait Activity walker Description FWW Level of Assistance close SBA Surface carpet, tile Treatment Focus Proximation, upright posture, safety, STS Comments heavy B UE use. Self-Care/Home Management Treatment Education Other Education -Pt asks about TENS. edu to pt for obtaining TENS unit on [employer] based on conversation with evaluating PT. PT-OP-R Modalities Start: 05/28/24 10:36 Freq: Status: Active Protocol: Document 07/04/24 11:30 NBM (Rec: 07/04/24 12:30 NBM [id number]) Electric Stimulation Electric Stimulation Interferential Current (IFC) Intensity 39 Target/Sweep Sweep High/Low High Combined With Heat/Cold Hot Pack Comments 15 min, prone wo pillows PT-OP-T Assessment and Plan Start: 05/28/24 10:36 Freq: Status: Active Protocol: Document 07/04/24 11:30 NBM (Rec: 07/04/24 12:30 NBM [id number]) Physical Therapy Assessment Goals gait Short Term Goal (STG) Pt will be able to amb safely with SPC STG Duration 07/27 Jail Goal (LTG) Pt will be able to amb safely without AD w/o significant gait deviations. 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 LTG Duration 09/05 Assessment Summary Assessment Argelia presents with FWW after driving herself to PT and is using it for ease of getting in and out of car. Treatment focus on LE strengthening and HEP review with emphasis on core and breathwork. Argelia tolerates session without increased pain except with seaeted paloff press x5 anchored on L with discomfort noted R lumbar region. Physical Therapy Plan Frequency and Duration Frequency of Treatment 2x/Week Duration of treatment (weeks) 12 Plan of Care Start Date 06/13/24 Plan of Care End Date 09/05/24 Therapeutic Interventions Therapeutic Interventions Balance Training,Gait Training ,Home Exercise Program,Joint Mobilizations,Manual Therapy, Neuromuscular Re-education, Patient/Caregiver Education, Self-Care/Home Management,Soft Tissue Mobilization,Taping, Therapeutic Activities, Therapeutic Exercises Modalities Cold Pack/Ice Massage,Electric Stimulation,Hot Packs, Infrared Therapy,Traction- Mechanical,Ultrasound Next Visit Focus/Plan Next Note Type Treatment Note Next Visit Plan work on hip strengthening manual to pelvis and spinal gently and STM to back and hips and n pathway L
--- NOTE | 2024-07-06 12:25 | PT.OTN ---
Physical Therapy Treatment Note PT-OP-A Visit Information Start: 05/28/24 10:36 Freq: Status: Active Protocol: Document 07/06/24 11:49 NBM (Rec: 07/06/24 12:29 NB [id number]) Out-Patient Physical Therapy Visit Information Visit Information Visit Type Treatment Note Visit Start Time 11:40 Visit Stop Time 12:35 Visit Number 7 Number of CUSTOMER SERVICE ADVOCATE Visits 2 Evaluation Information Evaluation Date 06/13/24 PT-OP-B Current Condition Start: 05/28/24 10:36 Freq: Status: Active Protocol: Document 06/13/24 11:36 [facility] (Rec: 06/13/24 12:32 [facility] [id number]) Current Condition History of Current Condition Onset Date mid Mar Current Complaints LBP, leg pain and weakness History of Current Condition Pt had L NIKA 1.5 year ago. 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 She was doing everything regular at home and started feeling like karl wasn't getting as much exercise and tried some of her old PT exercises and was doing a lot of sit to stands. Then her LB to ant hips and nto med thigh. She went to see doctor and he thought is was inflamed pelvic flexor muscles and gave her a shot in her bottom. helped for 2 days She went on a 1 week trip and had to help her walk with a car. Rajesh came back, started on course of steroids (felt better at day 2) then after the 6 days went back to back. She was also taking anti inflamatory meds and tramadol . She is still takng both of these along w/naproxen. Xray has shown degeneration in LB. R hip has moderate deteriation . Did stop alchol last september and lost 25 lbs. She feels like she lost muscle. Getting numb through L leg down through toes on L leg. Encouraged to see spine doctor and has an appt for Jul 10 w/a spine docor (non operative). Hoping to consider injection. Encouraged by all doctors she has seen so far, that PT will help. Did not have back pain prior to this. Was fully functional to get up/down from the ground. She has fallen 2x d/t legs giving out even though she is careful. One was new years yoli and karl was straightening the table and had one hand on the table and reached and leg gave out. She was at dinner th day and was holding husbands arm and when did small step down lgs gave out. Doing exercsies from doctor and they don't inc pain Prior Treatments and Tests MRI IMPRESSION: Multiple levels of significant spine degenerative change can be seen. At the T11-T12 level, there is a central right disc extrusion seen. 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 PT-OP-Q Treatments Start: 05/28/24 10:36 Freq: Status: Active Protocol: Document 07/06/24 11:49 NBM (Rec: 07/06/24 12:29 NB [id number]) Therapeutic Exercises Sidelying Exercises reverse clamshell Sidelying Exercise Name w/ TrA and breath Side bilateral Reps/Minutes x10 ea Comments cues for eccentric control, pain-free clamshell Sidelying Exercise Name HEP Side bilateral Equipment Used L 1 Reps/Minutes x15 ea Comments cues core and breath, painfree hip abd Sidelying Exercise Name AROM range she can then AAROM Side bilateral Reps/Minutes 10 Comments cues for core and glute, painfree Manual Therapy Treatment Consent Patient gave verbal consent for manual Yes treatment Soft Tissue Mobilization spine Body Location B along SI, ES, QL Mobilization Type Rolling Intensity/Depth Moderate Body Position Sidelying glutes Body Location R>L piriformis and sup glutes Mobilization Type Rolling Intensity/Depth Moderate Body Position Sidelying PT-OP-R Modalities Start: 05/28/24 10:36 Freq: Status: Active Protocol: Document 07/06/24 11:49 NBM (Rec: 07/06/24 12:29 NB [id number]) Electric Stimulation Electric Stimulation Interferential Current (IFC) Intensity 36 Target/Sweep Sweep High/Low High Combined With Heat/Cold Hot Pack Comments 15 min, prone, pillow under LEs. PT-OP-T Assessment and Plan Start: 05/28/24 10:36 Freq: Status: Active Protocol: Document 07/06/24 11:49 [facility] (Rec: 07/06/24 12:29 [facility] [id number]) Physical Therapy Assessment Goals gait Short Term Goal (STG) Pt will be able to amb safely with SPC STG Duration 07/27 Longterm Goal (LTG) Pt will be able to amb safely without AD w/o significant gait deviations. 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 LTG Duration 09/05 Assessment Summary Assessment Argelia is painfree with sidelying hip strengthening ex 's following manual therapy and tolerates trial of reverse clamshell well, although she requires cues for eccentric control. Palpable tension to R piriformis improves with soft tissue mobilization. Physical Therapy Plan Frequency and Duration Frequency of Treatment 2x/Week Duration of treatment (weeks) 12 Plan of Care Start Date 06/13/24 Plan of Care End Date 09/05/24 Therapeutic Interventions Therapeutic Interventions Balance Training,Gait Training ,Home Exercise Program,Joint Mobilizations,Manual Therapy, Neuromuscular Re-education, Patient/Caregiver Education, Self-Care/Home Management,Soft Tissue Mobilization,Taping, Therapeutic Activities, Therapeutic Exercises Modalities Cold Pack/Ice Massage,Electric Stimulation,Hot Packs, Infrared Therapy,Traction- Mechanical,Ultrasound Next Visit Focus/Plan Next Note Type Treatment Note Next Visit Plan work on hip strengthening manual to pelvis and spinal gently and STM to back and hips and n pathway L
--- NOTE | 2024-07-09 14:04 | PT.OTN ---
Current Diagnoses Bilateral primary osteoarthritis of hip (07/09/24) Spondylosis without myelopathy or radiculopathy, lumbar region (07/09/24) Difficulty in walking, not elsewhere classified (07/09/24) Abnormal posture (07/09/24) Strain of muscle, fascia and tendon of lower back, initial encounter (07/09/24) Physical Therapy Treatment Note PT-OP-A Visit Information Start: 05/28/24 10:36 Freq: Status: Active Protocol: Document 07/09/24 13:03 [facility] (Rec: 07/09/24 14:03 [facility] [id number]) Out-Patient Physical Therapy Visit Information Visit Information Visit Type Progress Note Visit Start Time 13:03 Visit Stop Time 13:56 Visit Number 8 Number of ROLL FILLER Visits 0 PT-OP-B Current Condition Start: 05/28/24 10:36 Freq: Status: Active Protocol: Document 06/13/24 11:36 [facility] (Rec: 06/13/24 12:32 [facility] [id number]) Current Condition History of Current Condition Onset Date mid Mar Current Complaints LBP, leg pain and weakness History of Current Condition Pt had L NIKA 1.5 year ago. 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 She was doing everything regular at home and started feeling like seh wasn't getting as much exercise and tried some of her old PT exercises and was doing a lot of sit to stands. Then her LB to ant hips and nto med thigh. She went to see doctor and he thought is was inflamed pelvic flexor muscles and gave her a shot in her bottom. helped for 2 days She went on a 1 week trip and had to help her walk with a car. Rajesh came back, started on course of steroids (felt better at day 2) then after the 6 days went back to back. She was also taking anti inflamatory meds and tramadol . She is still takng both of these along w/naproxen. Xray has shown degeneration in LB. R hip has moderate deteriation . Did stop alchol last september and lost 25 lbs. She feels like she lost muscle. Getting numb through L leg down through toes on L leg. Encouraged to see spine doctor and has an appt for Jul 10 w/a spine docor (non operative). Hoping to consider injection. Encouraged by all doctors she has seen so far, that PT will help. Did not have back pain prior to this. Was fully functional to get up/down from the ground. She has fallen 2x d/t legs giving out even though she is careful. One was new years yoli and seh was straightening the table and had one hand on the table and reached and leg gave out. She was at dinner day and was holding husbands arm and when did small step down lgs gave out. Doing exercsies from doctor and they don't inc pain Prior Treatments and Tests MRI IMPRESSION: Multiple levels of significant spine degenerative change can be seen. At the T11-T12 level, there is a central right disc extrusion seen. 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 pain is a lot better. numbness in L leg may be worse . LLE feels like could give out still. More minor pain w/ transitions. Patient Reported Progress Improving Patient Questionnaires Lower Extremity Functional Scale LEFS Score 15/80 PT-OP-G Mobility & Gait Start: 05/28/24 10:36 Freq: Status: Active Protocol: Document 06/13/24 11:36 [facility] (Rec: 06/13/24 12:32 [facility] [id number]) OP Gait Assessment Comments Gait Comments dec stance time B w/SPC and dec foot clearance and asks to hold PT arm w/FWW after PT edu more even gait and improved foot clearance and less evidence for imbalance PT-OP-J Posture/Palpation/Skin Start: 05/28/24 10:36 Freq: Status: Active Protocol: Document 06/13/24 11:36 [facility] (Rec: 06/13/24 12:32 [facility] [id number]) Posture Evaluation Comments Posture Comments L pelvic shear, L iliac crest higher, R torso rotation PT-OP-K Range of Motion Start: 05/28/24 10:36 Freq: Status: Active Protocol: Document 06/13/24 11:36 [facility] (Rec: 06/13/24 15:41 [facility] [id number]) Lumbar Spine Range of Motion Lumbar Spine Active Percentage Flexion 20 Extension 5 Lateral Flexion Left 20 Lateral Flexion Right 20 ROM Limitations Pain PT-OP-L Special Tests Start: 05/28/24 10:36 Freq: Status: Active Protocol: Document 06/13/24 11:36 [facility] (Rec: 06/13/24 12:32 [facility] [id number]) Special Tests Lumbar Spine Special Tests Slump Test Results positive L PT-OP-M Strength Start: 05/28/24 10:36 Freq: Status: Active Protocol: Document 07/09/24 13:03 [facility] (Rec: 07/09/24 14:03 [facility] [id number]) Hip Strength Hip Manual Muscle Testing Right Flexion (L2) 3+ Fair+ Abduction 3- Fair- External Rotation 4- Good- Internal Rotation 4- Good- Left Flexion (L2) 3+ Fair+ Abduction 3- Fair- External Rotation 3+ Fair+ Internal Rotation 4 Good Knee Strength Knee Manual Muscle Testing Right Flexion (S2) 4 Good Extension (L3) 4 Good Left Flexion (S2) 4- Good- Extension (L3) 3+ Fair+ Ankle/Foot Strength Ankle and Foot Manual Muscle Testing Right Dorsiflexion (L4) 3+ Fair+ Plantarflexion (S1) 4 Good Left Dorsiflexion (L4) 4- Good- Plantarflexion (S1) 4 Good Comments PF tested seated B PT-OP-Q Treatments Start: 05/28/24 10:36 Freq: Status: Active Protocol: Document 07/09/24 13:03 [facility] (Rec: 07/09/24 14:03 [facility] [id number]) Therapeutic Exercises Standing Exercises DF Standing Exercise Name back at rail Side bilateral Reps/Minutes 15 alt march Side bilateral Equipment Used rail Reps/Minutes 15 backwards walk Side bilateral Reps/Minutes 15ft Comments rail hip abd Standing Exercise Name sidesteps B Side bilateral Reps/Minutes 15ft ea Comments rail prn Other Exercises isometrics Other Exercise Name BLE MMT Manual Therapy Treatment Consent Patient gave verbal consent for manual Yes treatment Joint Mobilizations sacrum Comments L UPA seated w/n glide L LLE lumbar Grade II Comments L3 upglide L c/r PT-OP-R Modalities Start: 05/28/24 10:36 Freq: Status: Active Protocol: Document 07/09/24 13:03 [facility] (Rec: 07/09/24 14:03 [facility] [id number]) Electric Stimulation Electric Stimulation Interferential Current (IFC) Target/Sweep Sweep High/Low High Combined With Heat/Cold Hot Pack Comments 10 min, prone, pillow under LEs. PT-OP-T Assessment and Plan Start: 05/28/24 10:36 Freq: Status: Active Protocol: Document 07/09/24 13:03 [facility] (Rec: 07/09/24 14:03 [facility] [id number]) Physical Therapy Assessment Goals gait Short Term Goal (STG) Pt will be able to amb safely with SPC 07/09-amb safey w/FWW and starting to furniture walk STG Duration 07/27 Dumper Operator Goal (LTG) Pt will be able to amb safely without AD w/o significant gait deviations. 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 07/09-slow progress LTG Duration 09/05 Assessment Summary Assessment Pt has made good progress with her pain and has been able to resume some chores at home and is able to stand now for short bouts. She is noting more minimal pain w/ transitions now. She amb steadily with FWW and is occasionally feeling confident enough at home to furniture walk. Attempted cane today but pt has some difficulty with coordination. Pt has cont B hip abd weakness and R>L DF weakness likely affecting her gait ability. Pt to see spinal specialist tomorrow and will follow up w/pt based on recommendations of that specialist. At this time, cont PT to build strength and balance and improve gait mechanics. Physical Therapy Plan Frequency and Duration Frequency of Treatment 2x/Week Duration of treatment (weeks) 12 Plan of Care Start Date 06/13/24 Plan of Care End Date 09/05/24 Therapeutic Interventions Therapeutic Interventions Balance Training,Gait Training ,Home Exercise Program,Joint Mobilizations,Manual Therapy, Neuromuscular Re-education, Patient/Caregiver Education, Self-Care/Home Management,Soft Tissue Mobilization,Taping, Therapeutic Activities, Therapeutic Exercises Modalities Cold Pack/Ice Massage,Electric Stimulation,Hot Packs, Infrared Therapy,Traction- Mechanical,Ultrasound Next Visit Focus/Plan Next Note Type Treatment Note Next Visit Plan check in re: how doctor appt went work on hip strengthening and work on balance in standing; hip abd strength manual to pelvis and spinal gently and STM to back and hips and n pathway L
--- NOTE | 2024-07-11 17:03 | PT.OTN ---
Current Diagnoses Bilateral primary osteoarthritis of hip (07/11/24) Spondylosis without myelopathy or radiculopathy, lumbar region (07/11/24) Difficulty in walking, not elsewhere classified (07/11/24) Abnormal posture (07/11/24) Strain of muscle, fascia and tendon of lower back, initial encounter (07/11/24) Physical Therapy Treatment Note PT-OP-A Visit Information Start: 05/28/24 10:36 Freq: Status: Active Protocol: Document 07/11/24 16:12 [facility] (Rec: 07/11/24 17:03 [facility] [id number]) Out-Patient Physical Therapy Visit Information Visit Information Visit Type Treatment Note Visit Start Time 16:17 Visit Stop Time 16:57 Visit Number 9 Number of TELEVISION HOST Visits 0 PT-OP-B Current Condition Start: 05/28/24 10:36 Freq: Status: Active Protocol: Document 06/13/24 11:36 [facility] (Rec: 06/13/24 12:32 [facility] [id number]) Current Condition History of Current Condition Onset Date mid Mar Current Complaints LBP, leg pain and weakness History of Current Condition Pt had L NIKA 1.5 year ago. 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 She was doing everything regular at home and started feeling like seh wasn't getting as much exercise and tried some of her old PT exercises and was doing a lot of sit to stands. Then her LB to ant hips and nto med thigh. She went to see doctor and he thought is was inflamed pelvic flexor muscles and gave her a shot in her bottom. helped for 2 days She went on a 1 week trip and had to help her walk with a car. Rajesh came back, started on course of steroids (felt better at day 2) then after the 6 days went back to back. She was also taking anti inflamatory meds and tramadol . She is still takng both of these along w/naproxen. Xray has shown degeneration in LB. R hip has moderate deteriation . Did stop alchol last september and lost 25 lbs. She feels like she lost muscle. Getting numb through L leg down through toes on L leg. Encouraged to see spine doctor and has an appt for Jul 10 w/a spine docor (non operative). Hoping to consider injection. Encouraged by all doctors she has seen so far, that PT will help. Did not have back pain prior to this. Was fully functional to get up/down from the ground. She has fallen 2x d/t legs giving out even though she is careful. One was new years yoli and seh was straightening the table and had one hand on the table and reached and leg gave out. She was at dinner day and was holding husbands arm and when did small step down lgs gave out. Doing exercsies from doctor and they don't inc pain Prior Treatments and Tests MRI IMPRESSION: Multiple levels of significant spine degenerative change can be seen. At the T11-T12 level, there is a central right disc extrusion seen. 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 (Rec: 07/11/24 17:03 [id number] Subjective Patient Comments Patient Comments Pt saw employment specialist and plan is to get injection first week of July. 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 got a few lidocane injectio PT-OP-G Mobility & Gait Start: 05/28/24 10:36 Freq: Status: Active Protocol: Document 06/13/24 11:36 [facility] (Rec: 06/13/24 12:32 [id number] OP Gait Assessment Comments Gait Comments dec stance time B w/SPC and dec foot clearance and asks to hold PT arm w/FWW after PT edu more even gait and improved foot clearance and less evidence for imbalance PT-OP-J Posture/Palpation/Skin Start: 05/28/24 10:36 Freq: Status: Active Protocol: Document 06/13/24 11:36 [facility] (Rec: 06/13/24 12:32 [id number] Posture Evaluation Comments Posture Comments L pelvic shear, L iliac crest higher, R torso rotation PT-OP-K Range of Motion Start: 05/28/24 10:36 Freq: Status: Active Protocol: Document 06/13/24 11:36 [facility] (Rec: 06/13/24 15:41 [facility] [id number]) Lumbar Spine Range of Motion Lumbar Spine Active Percentage Flexion 20 Extension 5 Lateral Flexion Left 20 Lateral Flexion Right 20 ROM Limitations Pain PT-OP-L Special Tests Start: 05/28/24 10:36 Freq: Status: Active Protocol: Document 06/13/24 11:36 [facility] (Rec: 06/13/24 12:32 [facility] [id number]) Special Tests Lumbar Spine Special Tests Slump Test Results positive L PT-OP-M Strength Start: 05/28/24 10:36 Freq: Status: Active Protocol: Document 07/09/24 13:03 [facility] (Rec: 07/09/24 14:03 [facility] [id number]) Hip Strength Hip Manual Muscle Testing Right Flexion (L2) 3+ Fair+ Abduction 3- Fair- External Rotation 4- Good- Internal Rotation 4- Good- Left Flexion (L2) 3+ Fair+ Abduction 3- Fair- External Rotation 3+ Fair+ Internal Rotation 4 Good Knee Strength Knee Manual Muscle Testing Right Flexion (S2) 4 Good Extension (L3) 4 Good Left Flexion (S2) 4- Good- Extension (L3) 3+ Fair+ Ankle/Foot Strength Ankle and Foot Manual Muscle Testing Right Dorsiflexion (L4) 3+ Fair+ Plantarflexion (S1) 4 Good Left Dorsiflexion (L4) 4- Good- Plantarflexion (S1) 4 Good Comments PF tested seated B PT-OP-Q Treatments Start: 05/28/24 10:36 Freq: Status: Active Protocol: Document 07/11/24 16:12 [facility] (Rec: 07/11/24 17:03 [facility] [id number]) Therapeutic Exercises Supine Exercises DF Side bilateral Equipment Used L2 L, RL1 Reps/Minutes 15 bridge Side bilateral Reps/Minutes 10 Comments cues segmental and glute squeeze pelvic tilt Supine Exercise Name 1. TA july 2. TA heel slide Side bilateral Reps/Minutes 15 ea hip abd Supine Exercise Name TA w/hooklying abd/ER Side bilateral Equipment Used L2 Reps/Minutes 15 Comments cues core Sidelying Exercises hip abd Sidelying Exercise Name AROM range she can then AAROM Side bilateral Reps/Minutes 10 Comments cues for core and glute Manual Therapy Treatment Consent Patient gave verbal consent for manual Yes treatment Soft Tissue Mobilization spine Body Location L QL Mobilization Type Rolling Intensity/Depth Moderate Body Position Sidelying glutes Body Location L piriformis and sup glutes Mobilization Type Rolling Intensity/Depth Moderate Body Position Sidelying Self-Care/Home Management Treatment Education Other Education 5 min: discussion about her appt w/employment specialist and that strength can take a long time to fully come back PT-OP-R Modalities Start: 05/28/24 10:36 Freq: Status: Active Protocol: Document 07/09/24 13:03 [facility] (Rec: 07/09/24 14:03 [facility] [id number]) Electric Stimulation Electric Stimulation Interferential Current (IFC) Target/Sweep Sweep High/Low High Combined With Heat/Cold Hot Pack Comments 10 min, prone, pillow under LEs. PT-OP-T Assessment and Plan Start: 05/28/24 10:36 Freq: Status: Active Protocol: Document 07/11/24 16:12 [facility] (Rec: 07/11/24 17:03 [facility] [id number]) Physical Therapy Assessment Goals gait Short Term Goal (STG) Pt will be able to amb safely with SPC 07/09-amb safey w/FWW and starting to furniture walk STG Duration 07/27 Mcc Goal (LTG) Pt will be able to amb safely without AD w/o significant gait deviations. 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 07/09-slow progress LTG Duration 09/05 Assessment Summary Assessment Pt did well with supine core progress and focused on supine and s/l exercises d/t pt fatigued from being on her feet all day. Physical Therapy Plan Frequency and Duration Frequency of Treatment 2x/Week Duration of treatment (weeks) 12 Plan of Care Start Date 06/13/24 Plan of Care End Date 09/05/24 Next Visit Focus/Plan Next Note Type Treatment Note Next Visit Plan work on hip strengthening and work on balance in standing; hip abd strength manual to pelvis and spinal gently and STM to back and hips and n pathway L
--- NOTE | 2024-07-17 12:30 | PT.OTN ---
Current Diagnoses Bilateral primary osteoarthritis of hip (07/24/24) Spondylosis without myelopathy or radiculopathy, lumbar region (07/24/24) Difficulty in walking, not elsewhere classified (07/24/24) Abnormal posture (07/24/24) Strain of muscle, fascia and tendon of lower back, initial encounter (07/24/24) Physical Therapy Treatment Note PT-OP-A Visit Information Start: 05/28/24 10:36 Freq: Status: Active Protocol: Document 07/24/24 11:50 NBM (Rec: 07/24/24 10:50 NBM [id number]) Out-Patient Physical Therapy Visit Information Visit Information Visit Type Treatment Note Visit Start Time 10:45 Visit Stop Time 11:30 Visit Number 10 Number of COLLIERY CLERK Visits 1 PT-OP-B Current Condition Start: 05/28/24 10:36 Freq: Status: Active Protocol: Document 06/13/24 11:36 [facility] (Rec: 06/13/24 12:32 [facility] [id number]) Current Condition History of Current Condition Onset Date mid Mar Current Complaints LBP, leg pain and weakness History of Current Condition Pt had L NIKA 1.5 year ago. 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 She was doing everything regular at home and started feeling like seh wasn't getting as much exercise and tried some of her old PT exercises and was doing a lot of sit to stands. Then her LB to ant hips and nto med thigh. She went to see doctor and he thought is was inflamed pelvic flexor muscles and gave her a shot in her bottom. helped for 2 days She went on a 1 week trip and had to help her walk with a car. Rajesh came back, started on course of steroids (felt better at day 2) then after the 6 days went back to back. She was also taking anti inflamatory meds and tramadol . She is still takng both of these along w/naproxen. Xray has shown degeneration in LB. R hip has moderate deteriation . Did stop alchol last september and lost 25 lbs. She feels like she lost muscle. Getting numb through L leg down through toes on L leg. Encouraged to see spine doctor and has an appt for Jul 10 w/a spine docor (non operative). Hoping to consider injection. Encouraged by all doctors she has seen so far, that PT will help. Did not have back pain prior to this. Was fully functional to get up/down from the ground. She has fallen 2x d/t legs giving out even though she is careful. One was new years yoli and seh was straightening the table and had one hand on the table and reached and leg gave out. She was at dinner day and was holding husbands arm and when did small step down lgs gave out. Doing exercsies from doctor and they don't inc pain Prior Treatments and Tests MRI IMPRESSION: Multiple levels of significant spine degenerative change can be seen. At the T11-T12 level, there is a central right disc extrusion seen. 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 PT-OP-G Mobility & Gait Start: 05/28/24 10:36 Freq: Status: Active Protocol: Document 06/13/24 11:36 [facility] (Rec: 06/13/24 12:32 [facility] [id number]) OP Gait Assessment Comments Gait Comments dec stance time B w/SPC and dec foot clearance and asks to hold PT arm w/FWW after PT edu more even gait and improved foot clearance and less evidence for imbalance PT-OP-J Posture/Palpation/Skin Start: 05/28/24 10:36 Freq: Status: Active Protocol: Document 06/13/24 11:36 [facility] (Rec: 06/13/24 12:32 [facility] [id number]) Posture Evaluation Comments Posture Comments L pelvic shear, L iliac crest higher, R torso rotation PT-OP-K Range of Motion Start: 05/28/24 10:36 Freq: Status: Active Protocol: Document 06/13/24 11:36 [facility] (Rec: 06/13/24 15:41 [facility] [id number]) Lumbar Spine Range of Motion Lumbar Spine Active Percentage Flexion 20 Extension 5 Lateral Flexion Left 20 Lateral Flexion Right 20 ROM Limitations Pain PT-OP-L Special Tests Start: 05/28/24 10:36 Freq: Status: Active Protocol: Document 06/13/24 11:36 [facility] (Rec: 06/13/24 12:32 [facility] [id number]) Special Tests Lumbar Spine Special Tests Slump Test Results positive L PT-OP-M Strength Start: 05/28/24 10:36 Freq: Status: Active Protocol: Document 07/09/24 13:03 [facility] (Rec: 07/09/24 14:03 [facility] [id number]) Hip Strength Hip Manual Muscle Testing Right Flexion (L2) 3+ Fair+ Abduction 3- Fair- External Rotation 4- Good- Internal Rotation 4- Good- Left Flexion (L2) 3+ Fair+ Abduction 3- Fair- External Rotation 3+ Fair+ Internal Rotation 4 Good Knee Strength Knee Manual Muscle Testing Right Flexion (S2) 4 Good Extension (L3) 4 Good Left Flexion (S2) 4- Good- Extension (L3) 3+ Fair+ Ankle/Foot Strength Ankle and Foot Manual Muscle Testing Right Dorsiflexion (L4) 3+ Fair+ Plantarflexion (S1) 4 Good Left Dorsiflexion (L4) 4- Good- Plantarflexion (S1) 4 Good Comments PF tested seated B PT-OP-Q Treatments Start: 05/28/24 10:36 Freq: Status: Active Protocol: Document 07/24/24 11:50 NBM (Rec: 07/24/24 10:50 NBM [id number]) Therapeutic Exercises Sidelying Exercises reverse clamshell Sidelying Exercise Name w/ TrA and breath Side bilateral Reps/Minutes x10 ea Comments cues for eccentric control, pain-free clamshell Sidelying Exercise Name HEP Side bilateral Equipment Used L 1 Reps/Minutes x15 ea Comments cues core and breath hip abd Sidelying Exercise Name AROM range she can then AAROM Side bilateral Reps/Minutes 10 Comments cues for core and glute Gait Training Gait Activity walker Description light blue 4WW Comments focus on offloading heavy upper extremity use which results in pt pushing 4WW ahead of her and flexed trunk. cues for proximation and upright posture, increasing hip flexion. Manual Therapy Treatment Consent Patient gave verbal consent for manual Yes treatment Soft Tissue Mobilization spine Body Location L QL Mobilization Type Rolling Intensity/Depth Moderate Body Position Sidelying Comments gentle manual pin and stretch to QL. glutes Body Location L piriformis and sup glutes Mobilization Type Rolling Intensity/Depth Moderate Body Position Sidelying Self-Care/Home Management Treatment Education Other Education Edu to pt re: dermatomes and myotomes w/ visual aids PT-OP-R Modalities Start: 05/28/24 10:36 Freq: Status: Active Protocol: Document 07/09/24 13:03 [facility] (Rec: 07/09/24 14:03 [facility] [id number]) Electric Stimulation Electric Stimulation Interferential Current (IFC) Target/Sweep Sweep High/Low High Combined With Heat/Cold Hot Pack Comments 10 min, prone, pillow under LEs. PT-OP-T Assessment and Plan Start: 05/28/24 10:36 Freq: Status: Active Protocol: Document 07/24/24 11:50 NBM (Rec: 07/24/24 10:50 NBM [id number]) Physical Therapy Assessment Goals gait Short Term Goal (STG) Pt will be able to amb safely with SPC 07/09-amb safey w/FWW and starting to furniture walk STG Duration 07/27 Check Writer Goal (LTG) Pt will be able to amb safely without AD w/o significant gait deviations. 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 07/09-slow progress LTG Duration 09/05 Assessment Summary Assessment Argelia demonstrates more control with sidelying ex's but continues to be challenged with hip abduction muscle weakness as with sidelying straight leg raise, which continues to require AAROM. She requires cueing for proximation w/ 4WW and upright posture to offset heavy B Upper Extremity support which leads to pt pushing 4WW in front with flexed trunk posture. Time spent today edu pt re: dermatome and myotome patterns with visual aids to promote pt's understanding of how spinal nerves are related to current symptoms wrapping around LLE as well as sudden onset of muscle weakness, and pt expresses improved understanding. Discussed pt's scheduling for cortisone injection is scheduled one day prior to dry needling so dry needling cancelled for now - desk director notified, evaluating PT and dry needling PT informed and in agreement. Physical Therapy Plan Frequency and Duration Frequency of Treatment 2x/Week Duration of treatment (weeks) 12 Plan of Care Start Date 06/13/24 Plan of Care End Date 09/05/24 Next Visit Focus/Plan Next Visit Plan work on hip strengthening and work on balance in standing; hip abd strength manual to pelvis and spinal gently and STM to back and hips and n pathway L
--- NOTE | 2024-07-17 13:25 | PT.OTN ---
Physical Therapy Treatment Note PT-OP-A Visit Information Start: 05/28/24 10:36 Freq: Status: Active Protocol: Document 07/17/24 11:50 NBM (Rec: 07/24/24 10:50 NB [id number]) Out-Patient Physical Therapy Visit Information Visit Information Visit Type Treatment Note Visit Start Time 10:45 Visit Stop Time 11:30 Visit Number 10 Number of LUMBER TAILER Visits 1 PT-OP-B Current Condition Start: 05/28/24 10:36 Freq: Status: Active Protocol: Document 06/13/24 11:36 [facility] (Rec: 06/13/24 12:32 [facility] [id number]) Current Condition History of Current Condition Onset Date mid Mar Current Complaints LBP, leg pain and weakness History of Current Condition Pt had L NIKA 1.5 year ago. 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 She was doing everything regular at home and started feeling like karl wasn't getting as much exercise and tried some of her old PT exercises and was doing a lot of sit to stands. Then her LB to ant hips and nto med thigh. She went to see doctor and he thought is was inflamed pelvic flexor muscles and gave her a shot in her bottom. helped for 2 days She went on a 1 week trip and had to help her walk with a car. Rajesh came back, started on course of steroids (felt better at day 2) then after the 6 days went back to back. She was also taking anti inflamatory meds and tramadol . She is still takng both of these along w/naproxen. Xray has shown degeneration in LB. R hip has moderate deteriation . Did stop alchol last september and lost 25 lbs. She feels like she lost muscle. Getting numb through L leg down through toes on L leg. Encouraged to see spine doctor and has an appt for Jul 10 w/a spine docor (non operative). Hoping to consider injection. Encouraged by all doctors she has seen so far, that PT will help. Did not have back pain prior to this. Was fully functional to get up/down from the ground. She has fallen 2x d/t legs giving out even though she is careful. One was new years yoli and seh was straightening the table and had one hand on the table and reached and leg gave out. She was at dinner th en day and was holding husbands arm and when did small step down lgs gave out. Doing exercsies from doctor and they don't inc pain Prior Treatments and Tests MRI IMPRESSION: Multiple levels of significant spine degenerative change can be seen. At the T11-T12 level, there is a central right disc extrusion seen. 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 PT-OP-G Mobility & Gait Start: 05/28/24 10:36 Freq: Status: Active Protocol: Document 06/13/24 11:36 [facility] (Rec: 06/13/24 12:32 [facility] [id number]) OP Gait Assessment Comments Gait Comments dec stance time B w/SPC and dec foot clearance and asks to hold PT arm w/FWW after PT edu more even gait and improved foot clearance and less evidence for imbalance PT-OP-J Posture/Palpation/Skin Start: 05/28/24 10:36 Freq: Status: Active Protocol: Document 06/13/24 11:36 [facility] (Rec: 06/13/24 12:32 [facility] [id number]) Posture Evaluation Comments Posture Comments L pelvic shear, L iliac crest higher, R torso rotation PT-OP-K Range of Motion Start: 05/28/24 10:36 Freq: Status: Active Protocol: Document 06/13/24 11:36 [facility] (Rec: 06/13/24 15:41 [facility] [id number]) Lumbar Spine Range of Motion Lumbar Spine Active Percentage Flexion 20 Extension 5 Lateral Flexion Left 20 Lateral Flexion Right 20 ROM Limitations Pain PT-OP-L Special Tests Start: 05/28/24 10:36 Freq: Status: Active Protocol: Document 06/13/24 11:36 [facility] (Rec: 06/13/24 12:32 [facility] [id number]) Special Tests Lumbar Spine Special Tests Slump Test Results positive L PT-OP-M Strength Start: 05/28/24 10:36 Freq: Status: Active Protocol: Document 07/09/24 13:03 [facility] (Rec: 07/09/24 14:03 [facility] [id number]) Hip Strength Hip Manual Muscle Testing Right Flexion (L2) 3+ Fair+ Abduction 3- Fair- External Rotation 4- Good- Internal Rotation 4- Good- Left Flexion (L2) 3+ Fair+ Abduction 3- Fair- External Rotation 3+ Fair+ Internal Rotation 4 Good Knee Strength Knee Manual Muscle Testing Right Flexion (S2) 4 Good Extension (L3) 4 Good Left Flexion (S2) 4- Good- Extension (L3) 3+ Fair+ Ankle/Foot Strength Ankle and Foot Manual Muscle Testing Right Dorsiflexion (L4) 3+ Fair+ Plantarflexion (S1) 4 Good Left Dorsiflexion (L4) 4- Good- Plantarflexion (S1) 4 Good Comments PF tested seated B PT-OP-Q Treatments Start: 05/28/24 10:36 Freq: Status: Active Protocol: Document 07/17/24 11:50 NBM (Rec: 07/24/24 10:50 NBM [id number]) Therapeutic Exercises Sidelying Exercises reverse clamshell Sidelying Exercise Name w/ TrA and breath Side bilateral Reps/Minutes x10 ea Comments cues for eccentric control, pain-free clamshell Sidelying Exercise Name HEP Side bilateral Equipment Used L 1 Reps/Minutes x15 ea Comments cues core and breath hip abd Sidelying Exercise Name AROM range she can then AAROM Side bilateral Reps/Minutes 10 Comments cues for core and glute Gait Training Gait Activity walker Description light blue 4WW Comments focus on offloading heavy upper extremity use which results in pt pushing 4WW ahead of her and flexed trunk. cues for proximation and upright posture, increasing hip flexion. Manual Therapy Treatment Consent Patient gave verbal consent for manual Yes treatment Soft Tissue Mobilization spine Body Location L QL Mobilization Type Rolling Intensity/Depth Moderate Body Position Sidelying Comments gentle manual pin and stretch to QL. glutes Body Location L piriformis and sup glutes Mobilization Type Rolling Intensity/Depth Moderate Body Position Sidelying Self-Care/Home Management Treatment Education Other Education Edu to pr re: dermatomes and myotomes w/ visual aids PT-OP-R Modalities Start: 05/28/24 10:36 Freq: Status: Active Protocol: Document 07/09/24 13:03 [facility] (Rec: 07/09/24 14:03 [facility] [id number]) Electric Stimulation Electric Stimulation Interferential Current (IFC) Target/Sweep Sweep High/Low High Combined With Heat/Cold Hot Pack Comments 10 min, prone, pillow under LEs. PT-OP-T Assessment and Plan Start: 05/28/24 10:36 Freq: Status: Active Protocol: Document 07/17/24 11:50 NBM (Rec: 07/24/24 10:50 NBM [id number]) Physical Therapy Assessment Goals gait Short Term Goal (STG) Pt will be able to amb safely with SPC 07/09-amb safey w/FWW and starting to furniture walk STG Duration 07/27 Skin Care Therapist Goal (LTG) Pt will be able to amb safely without AD w/o significant gait deviations. 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 07/09-slow progress LTG Duration 09/05 Assessment Summary Assessment Argelia demonstrates more control with sidelying ex's but continues to be challenged with hip abduction muscle weakness as with sidelying straight leg raise, which continues to require AAROM. She requires cueing for proximation w/ 4WW and upright posture to offset heavy B Upper Extremity support which leads to pt pushing 4WW in front with flexed trunk posture. Time spent today edu pt re: dermatome and myotome patterns with visual aids to promote pt's understanding of how spinal nerves are related to current symptoms wrapping around LLE as well as sudden onset of muscle weakness, and pt expresses improved understanding. Discussed pt's scheduling for cortisone injection is scheduled one day prior to dry needling so dry needling cancelled for now - medical front desk specialist notified, PT informed and in agreement. Physical Therapy Plan Frequency and Duration Frequency of Treatment 2x/Week Duration of treatment (weeks) 12 Plan of Care Start Date 06/13/24 Plan of Care End Date 09/05/24 Next Visit Focus/Plan Next Visit Plan work on hip strengthening and work on balance in standing; hip abd strength manual to pelvis and spinal gently and STM to back and hips and n pathway L
--- NOTE | 2024-07-19 10:14 | PT.OTN ---
Current Diagnoses Bilateral primary osteoarthritis of hip (07/19/24) Spondylosis without myelopathy or radiculopathy, lumbar region (07/19/24) Difficulty in walking, not elsewhere classified (07/19/24) Abnormal posture (07/19/24) Strain of muscle, fascia and tendon of lower back, initial encounter (07/19/24) Physical Therapy Treatment Note PT-OP-A Visit Information Start: 05/28/24 10:36 Freq: Status: Active Protocol: Document 07/19/24 09:18 [facility] (Rec: 07/19/24 10:14 [facility] [id number]) Out-Patient Physical Therapy Visit Information Visit Information Visit Type Treatment Note Visit Start Time 09:05 Visit Stop Time 09:58 Visit Number 10 Number of SHEAR OPERATOR AUTOMATIC Visits 0 PT-OP-B Current Condition Start: 05/28/24 10:36 Freq: Status: Active Protocol: Document 06/13/24 11:36 [facility] (Rec: 06/13/24 12:32 [facility] [id number]) Current Condition History of Current Condition Onset Date mid Mar Current Complaints LBP, leg pain and weakness History of Current Condition Pt had L NIKA 1.5 year ago. 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 She was doing everything regular at home and started feeling like seh wasn't getting as much exercise and tried some of her old PT exercises and was doing a lot of sit to stands. Then her LB to ant hips and nto med thigh. She went to see doctor and he thought is was inflamed pelvic flexor muscles and gave her a shot in her bottom. helped for 2 days She went on a 1 week trip and had to help her walk with a car. Rajesh came back, started on course of steroids (felt better at day 2) then after the 6 days went back to back. She was also taking anti inflamatory meds and tramadol . She is still takng both of these along w/naproxen. Xray has shown degeneration in LB. R hip has moderate deteriation . Did stop alchol last september and lost 25 lbs. She feels like she lost muscle. Getting numb through L leg down through toes on L leg. Encouraged to see spine doctor and has an appt for Jul 10 w/a spine docor (non operative). Hoping to consider injection. Encouraged by all doctors she has seen so far, that PT will help. Did not have back pain prior to this. Was fully functional to get up/down from the ground. She has fallen 2x d/t legs giving out even though she is careful. One was new years yoli and seh was straightening the table and had one hand on the table and reached and leg gave out. She was at dinner day and was holding husbands arm and when did small step down lgs gave out. Doing exercsies from doctor and they don't inc pain Prior Treatments and Tests MRI IMPRESSION: Multiple levels of significant spine degenerative change can be seen. At the T11-T12 level, there is a central right disc extrusion seen. 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 Frustrated w/weakness PT-OP-G Mobility & Gait Start: 05/28/24 10:36 Freq: Status: Active Protocol: Document 06/13/24 11:36 [facility] (Rec: 06/13/24 12:32 [id number] OP Gait Assessment Comments Gait Comments dec stance time B w/SPC and dec foot clearance and asks to hold PT arm w/FWW after PT edu more even gait and improved foot clearance and less evidence for imbalance PT-OP-J Posture/Palpation/Skin Start: 05/28/24 10:36 Freq: Status: Active Protocol: Document 06/13/24 11:36 [facility] (Rec: 06/13/24 12:32 [id number] Posture Evaluation Comments Posture Comments L pelvic shear, L iliac crest higher, R torso rotation PT-OP-K Range of Motion Start: 05/28/24 10:36 Freq: Status: Active Protocol: Document 06/13/24 11:36 [facility] (Rec: 06/13/24 15:41 [facility] [id number]) Lumbar Spine Range of Motion Lumbar Spine Active Percentage Flexion 20 Extension 5 Lateral Flexion Left 20 Lateral Flexion Right 20 ROM Limitations Pain PT-OP-L Special Tests Start: 05/28/24 10:36 Freq: Status: Active Protocol: Document 06/13/24 11:36 [facility] (Rec: 06/13/24 12:32 [facility] [id number]) Special Tests Lumbar Spine Special Tests Slump Test Results positive L PT-OP-M Strength Start: 05/28/24 10:36 Freq: Status: Active Protocol: Document 07/09/24 13:03 [facility] (Rec: 07/09/24 14:03 [facility] [id number]) Hip Strength Hip Manual Muscle Testing Right Flexion (L2) 3+ Fair+ Abduction 3- Fair- External Rotation 4- Good- Internal Rotation 4- Good- Left Flexion (L2) 3+ Fair+ Abduction 3- Fair- External Rotation 3+ Fair+ Internal Rotation 4 Good Knee Strength Knee Manual Muscle Testing Right Flexion (S2) 4 Good Extension (L3) 4 Good Left Flexion (S2) 4- Good- Extension (L3) 3+ Fair+ Ankle/Foot Strength Ankle and Foot Manual Muscle Testing Right Dorsiflexion (L4) 3+ Fair+ Plantarflexion (S1) 4 Good Left Dorsiflexion (L4) 4- Good- Plantarflexion (S1) 4 Good Comments PF tested seated B PT-OP-Q Treatments Start: 05/28/24 10:36 Freq: Status: Active Protocol: Document 07/19/24 09:18 [facility] (Rec: 07/19/24 10:14 [facility] [id number]) Therapeutic Exercises Supine Exercises bridge Side bilateral Equipment Used L1 band Reps/Minutes 15 Comments cues segmental and glute squeeze pelvic tilt Supine Exercise Name 1. TA july 2. TA heel slide w/opp knee straight Side bilateral Reps/Minutes 10 ea Sitting Exercises DF Side bilateral Equipment Used L1 Reps/Minutes 20 ea Standing Exercises PF Side bilateral Reps/Minutes 20 backwards walk Side bilateral Equipment Used rail Reps/Minutes 3x10ft Comments cues full stride hip abd Standing Exercise Name sidesteps B Side bilateral Reps/Minutes 10ft ea Comments rail prn Neuro Re-Education Treatment Other Activities supine faciliation Details L Comments prolonged holds 1. flex add ER pattern w/DF 2. flex, abd IR pattern w/DF PNF Details L Comments prolonged hold ant elevation w /flex, ER and DF pattern progressed to dissociation w/ COI of LE pattern PT-OP-R Modalities Start: 05/28/24 10:36 Freq: Status: Active Protocol: Document 07/09/24 13:03 [facility] (Rec: 07/09/24 14:03 [facility] [id number]) Electric Stimulation Electric Stimulation Interferential Current (IFC) Target/Sweep Sweep High/Low High Combined With Heat/Cold Hot Pack Comments 10 min, prone, pillow under LEs. PT-OP-T Assessment and Plan Start: 05/28/24 10:36 Freq: Status: Active Protocol: Document 07/19/24 09:18 [facility] (Rec: 07/19/24 10:14 [facility] [id number]) Physical Therapy Assessment Goals gait Short Term Goal (STG) Pt will be able to amb safely with SPC 07/09-amb safey w/FWW and starting to furniture walk STG Duration 07/27 Head Of Partner Development Goal (LTG) Pt will be able to amb safely without AD w/o significant gait deviations. 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 07/09-slow progress LTG Duration 09/05 Assessment Summary Assessment Pt did well with exercises w/ cues. Able to progress to more difficult exercsies today. Improved 90/90 flex on L w/ less difficulty after PNF Physical Therapy Plan Frequency and Duration Frequency of Treatment 2x/Week Duration of treatment (weeks) 12 Plan of Care Start Date 06/13/24 Plan of Care End Date 09/05/24 Next Visit Focus/Plan Next Note Type Treatment Note Next Visit Plan work on hip strengthening and work on balance in standing; hip abd strength manual to pelvis and spinal gently and STM to back and hips and n pathway L
--- NOTE | 2024-07-24 13:40 | PT.OTN ---
Current Diagnoses Bilateral primary osteoarthritis of hip (07/24/24) Spondylosis without myelopathy or radiculopathy, lumbar region (07/24/24) Difficulty in walking, not elsewhere classified (07/24/24) Abnormal posture (07/24/24) Strain of muscle, fascia and tendon of lower back, initial encounter (07/24/24) Physical Therapy Treatment Note PT-OP-A Visit Information Start: 05/28/24 10:36 Freq: Status: Active Protocol: Document 07/24/24 10:51 [facility] (Rec: 07/24/24 11:39 [facility] [id number]) Out-Patient Physical Therapy Visit Information Visit Information Visit Type Treatment Note Visit Start Time 10:51 Visit Stop Time 11:35 Visit Number 12 Number of SALES MARKET LEADER Visits 1 Evaluation Information Evaluation Date 06/13/24 PT-OP-B Current Condition Start: 05/28/24 10:36 Freq: Status: Active Protocol: Document 06/13/24 11:36 [facility] (Rec: 06/13/24 12:32 [facility] [id number]) Current Condition History of Current Condition Onset Date mid Mar Current Complaints LBP, leg pain and weakness History of Current Condition Pt had L NIKA 1.5 year ago. 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 She was doing everything regular at home and started feeling like seh wasn't getting as much exercise and tried some of her old PT exercises and was doing a lot of sit to stands. Then her LB to ant hips and nto med thigh. She went to see doctor and he thought is was inflamed pelvic flexor muscles and gave her a shot in her bottom. helped for 2 days She went on a 1 week trip and had to help her walk with a car. Rajesh came back, started on course of steroids (felt better at day 2) then after the 6 days went back to back. She was also taking anti inflamatory meds and tramadol . She is still takng both of these along w/naproxen. Xray has shown degeneration in LB. R hip has moderate deteriation . Did stop alchol last september and lost 25 lbs. She feels like she lost muscle. Getting numb through L leg down through toes on L leg. Encouraged to see spine doctor and has an appt for Jul 10 w/a spine docor (non operative). Hoping to consider injection. Encouraged by all doctors she has seen so far, that PT will help. Did not have back pain prior to this. Was fully functional to get up/down from the ground. She has fallen 2x d/t legs giving out even though she is careful. One was new years yoli and seh was straightening the table and had one hand on the table and reached and leg gave out. She was at dinner day and was holding husbands arm and when did small step down lgs gave out. Doing exercsies from doctor and they don't inc pain Prior Treatments and Tests MRI IMPRESSION: Multiple levels of significant spine degenerative change can be seen. At the T11-T12 level, there is a central right disc extrusion seen. 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 She's been working on getting her toes up and the R foot doesn't go as high as the L. She did not contact MD for cancellation list because she has limited availability this week anyway and appointment is next week. PT-OP-G Mobility & Gait Start: 05/28/24 10:36 Freq: Status: Active Protocol: Document 06/13/24 11:36 [facility] (Rec: 06/13/24 12:32 [facility] [id number]) OP Gait Assessment Comments Gait Comments dec stance time B w/SPC and dec foot clearance and asks to hold PT arm w/FWW after PT edu more even gait and improved foot clearance and less evidence for imbalance PT-OP-J Posture/Palpation/Skin Start: 05/28/24 10:36 Freq: Status: Active Protocol: Document 06/13/24 11:36 [facility] (Rec: 06/13/24 12:32 [facility] [id number]) Posture Evaluation Comments Posture Comments L pelvic shear, L iliac crest higher, R torso rotation PT-OP-K Range of Motion Start: 05/28/24 10:36 Freq: Status: Active Protocol: Document 06/13/24 11:36 [facility] (Rec: 06/13/24 15:41 [facility] [id number]) Lumbar Spine Range of Motion Lumbar Spine Active Percentage Flexion 20 Extension 5 Lateral Flexion Left 20 Lateral Flexion Right 20 ROM Limitations Pain PT-OP-L Special Tests Start: 05/28/24 10:36 Freq: Status: Active Protocol: Document 06/13/24 11:36 [facility] (Rec: 06/13/24 12:32 [facility] [id number]) Special Tests Lumbar Spine Special Tests Slump Test Results positive L PT-OP-M Strength Start: 05/28/24 10:36 Freq: Status: Active Protocol: Document 07/09/24 13:03 [facility] (Rec: 07/09/24 14:03 [facility] [id number]) Hip Strength Hip Manual Muscle Testing Right Flexion (L2) 3+ Fair+ Abduction 3- Fair- External Rotation 4- Good- Internal Rotation 4- Good- Left Flexion (L2) 3+ Fair+ Abduction 3- Fair- External Rotation 3+ Fair+ Internal Rotation 4 Good Knee Strength Knee Manual Muscle Testing Right Flexion (S2) 4 Good Extension (L3) 4 Good Left Flexion (S2) 4- Good- Extension (L3) 3+ Fair+ Ankle/Foot Strength Ankle and Foot Manual Muscle Testing Right Dorsiflexion (L4) 3+ Fair+ Plantarflexion (S1) 4 Good Left Dorsiflexion (L4) 4- Good- Plantarflexion (S1) 4 Good Comments PF tested seated B PT-OP-Q Treatments Start: 05/28/24 10:36 Freq: Status: Active Protocol: Document 07/24/24 10:51 [facility] (Rec: 07/24/24 11:39 [facility] [id number]) Therapeutic Exercises Sitting Exercises DF Side bilateral Equipment Used L1 Reps/Minutes 20 ea Standing Exercises TKE Standing Exercise Name for carryover with ambulation w/ 4WW. Side left Resistance Lvl 3 Tb Equipment Used anchored at stairs, rail for UE support prn Reps/Minutes x10 Comments vc for full knee extension and to minimize a/p weightshifting. PF Side bilateral Reps/Minutes 20 Comments cues for foot placement, less a/p weightshift DF Standing Exercise Name back at rail Side bilateral Reps/Minutes 15 Willy, 15 alt Comments increased ROM alternating march Side bilateral Equipment Used rail Reps/Minutes 15 ea Comments tactile cues for L knee extension prior to R hip flexion backwards walk Side bilateral Equipment Used rail Reps/Minutes 4x10ft Comments cues full stride and neutral foot positioning hip abd Standing Exercise Name sidesteps B Side bilateral Equipment Used rail prn Reps/Minutes 10ft ea Comments occ tactile cue for LLE knee extension Gait Training Gait Activity walker Description light blue 4WW Level of Assistance SBA Surface carpet, tile Treatment Focus L knee extension during R toe off through swing phase Comments focus on L knee extension for increased LLE weightbearing and offloading heavy upper extremity support which results in pt pushing 4WW ahead of her and flexed trunk. Proximation and upright posture improve w/ cues for L full knee extension prior to R toe off. PT-OP-R Modalities Start: 05/28/24 10:36 Freq: Status: Active Protocol: Document 07/09/24 13:03 [facility] (Rec: 07/09/24 14:03 [facility] [id number]) Electric Stimulation Electric Stimulation Interferential Current (IFC) Target/Sweep Sweep High/Low High Combined With Heat/Cold Hot Pack Comments 10 min, prone, pillow under LEs. PT-OP-T Assessment and Plan Start: 05/28/24 10:36 Freq: Status: Active Protocol: Document 07/24/24 10:51 [facility] (Rec: 07/24/24 11:39 [facility] [id number]) Physical Therapy Assessment Goals gait Short Term Goal (STG) Pt will be able to amb safely with SPC 2-amb safey w/FWW and starting to furniture walk STG Duration 07/27 Long-Term Goal (LTG) Pt will be able to amb safely without AD w/o significant gait deviations. 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 07/09-slow progress LTG Duration 09/05 Assessment Summary Assessment Bilateral DF ROM in standing observably improves from start of session to end of session. 4WW proximation and upright posture improve w/ cues for L full knee extension prior to R toe off, and pt reports increased comfort ambulating as well with mindfulness of L knee extension. No pain throughout session, but pt reports some low back discomfort in L-sided lumbar region with heel raises and sidestepping. Physical Therapy Plan Frequency and Duration Frequency of Treatment 2x/Week Duration of treatment (weeks) 12 Plan of Care Start Date 06/13/24 Plan of Care End Date 09/05/24 Therapeutic Interventions Therapeutic Interventions Balance Training,Gait Training ,Home Exercise Program,Joint Mobilizations,Manual Therapy, Neuromuscular Re-education, Patient/Caregiver Education, Self-Care/Home Management,Soft Tissue Mobilization,Taping, Therapeutic Activities, Therapeutic Exercises Modalities Cold Pack/Ice Massage,Electric Stimulation,Hot Packs, Infrared Therapy,Traction- Mechanical,Ultrasound Next Visit Focus/Plan Next Note Type Treatment Note Next Visit Plan Consider QL doorwary stretch, L TKE for carryover with ambulation in 4WW. POC: work on hip strengthening and work on balance in standing; hip abd strength manual to pelvis and spinal gently and STM to back and hips and n pathway L
--- NOTE | 2024-07-26 17:48 | PT.OTN ---
Current Diagnoses Bilateral primary osteoarthritis of hip (07/26/24) Spondylosis without myelopathy or radiculopathy, lumbar region (07/26/24) Difficulty in walking, not elsewhere classified (07/26/24) Abnormal posture (07/26/24) Strain of muscle, fascia and tendon of lower back, initial encounter (07/26/24) Physical Therapy Treatment Note PT-OP-A Visit Information Start: 05/28/24 10:36 Freq: Status: Active Protocol: Document 07/26/24 14:54 [facility] (Rec: 07/26/24 17:48 [facility] [id number]) Out-Patient Physical Therapy Visit Information Visit Information Visit Type Treatment Note Visit Start Time 14:35 Visit Stop Time 15:25 Visit Number 13 Number of HORTICULTURE PROFESSOR Visits 0 PT-OP-B Current Condition Start: 05/28/24 10:36 Freq: Status: Active Protocol: Document 06/13/24 11:36 [facility] (Rec: 06/13/24 12:32 [facility] [id number]) Current Condition History of Current Condition Onset Date mid Mar Current Complaints LBP, leg pain and weakness History of Current Condition Pt had L NIKA 1.5 year ago. 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 She was doing everything regular at home and started feeling like seh wasn't getting as much exercise and tried some of her old PT exercises and was doing a lot of sit to stands. Then her LB to ant hips and nto med thigh. She went to see doctor and he thought is was inflamed pelvic flexor muscles and gave her a shot in her bottom. helped for 2 days She went on a 1 week trip and had to help her walk with a car. Rajesh came back, started on course of steroids (felt better at day 2) then after the 6 days went back to back. She was also taking anti inflamatory meds and tramadol . She is still takng both of these along w/naproxen. Xray has shown degeneration in LB. R hip has moderate deteriation . Did stop alchol last september and lost 25 lbs. She feels like she lost muscle. Getting numb through L leg down through toes on L leg. Encouraged to see spine doctor and has an appt for Jul 10 w/a spine docor (non operative). Hoping to consider injection. Encouraged by all doctors she has seen so far, that PT will help. Did not have back pain prior to this. Was fully functional to get up/down from the ground. She has fallen 2x d/t legs giving out even though she is careful. One was new years yoli and seh was straightening the table and had one hand on the table and reached and leg gave out. She was at dinner day and was holding husbands arm and when did small step down lgs gave out. Doing exercsies from doctor and they don't inc pain Prior Treatments and Tests MRI IMPRESSION: Multiple levels of significant spine degenerative change can be seen. At the T11-T12 level, there is a central right disc extrusion seen. 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 PT-OP-C Subjective Start: 05/28/24 10:36 Freq: Status: Active Protocol: Document 07/26/24 14:54 [facility] (Rec: 07/26/24 17:48 [place] [id number]) OP-PT Subjective Patient Comments Patient Comments Pt reports compliance w/ exercises PT-OP-G Mobility & Gait Start: 05/28/24 10:36 Freq: Status: Active Protocol: Document 06/13/24 11:36 [facility] (Rec: 06/13/24 12:32 [place] [id number]) OP Gait Assessment Comments Gait Comments dec stance time B w/SPC and dec foot clearance and asks to hold PT arm w/FWW after PT edu more even gait and improved foot clearance and less evidence for imbalance PT-OP-J Posture/Palpation/Skin Start: 05/28/24 10:36 Freq: Status: Active Protocol: Document 06/13/24 11:36 [facility] (Rec: 06/13/24 12:32 [place] [id number]) Posture Evaluation Comments Posture Comments L pelvic shear, L iliac crest higher, R torso rotation PT-OP-K Range of Motion Start: 05/28/24 10:36 Freq: Status: Active Protocol: Document 06/13/24 11:36 [facility] (Rec: 06/13/24 15:41 [facility] [id number]) Lumbar Spine Range of Motion Lumbar Spine Active Percentage Flexion 20 Extension 5 Lateral Flexion Left 20 Lateral Flexion Right 20 ROM Limitations Pain PT-OP-L Special Tests Start: 05/28/24 10:36 Freq: Status: Active Protocol: Document 06/13/24 11:36 [facility] (Rec: 06/13/24 12:32 [facility] [id number]) Special Tests Lumbar Spine Special Tests Slump Test Results positive L PT-OP-M Strength Start: 05/28/24 10:36 Freq: Status: Active Protocol: Document 07/09/24 13:03 [facility] (Rec: 07/09/24 14:03 [facility] [id number]) Hip Strength Hip Manual Muscle Testing Right Flexion (L2) 3+ Fair+ Abduction 3- Fair- External Rotation 4- Good- Internal Rotation 4- Good- Left Flexion (L2) 3+ Fair+ Abduction 3- Fair- External Rotation 3+ Fair+ Internal Rotation 4 Good Knee Strength Knee Manual Muscle Testing Right Flexion (S2) 4 Good Extension (L3) 4 Good Left Flexion (S2) 4- Good- Extension (L3) 3+ Fair+ Ankle/Foot Strength Ankle and Foot Manual Muscle Testing Right Dorsiflexion (L4) 3+ Fair+ Plantarflexion (S1) 4 Good Left Dorsiflexion (L4) 4- Good- Plantarflexion (S1) 4 Good Comments PF tested seated B PT-OP-Q Treatments Start: 05/28/24 10:36 Freq: Status: Active Protocol: Document 07/26/24 14:54 [facility] (Rec: 07/26/24 17:48 [facility] [id number]) Therapeutic Exercises Standing Exercises step ups Standing Exercise Name 1.fwd step up 2. lat step up Side bilateral Equipment Used 1# ankle wts, 5 in step Reps/Minutes 10 ea PF Side bilateral Reps/Minutes 20 Comments cues dec rail use Manual Therapy Treatment Consent Patient gave verbal consent for manual Yes treatment Soft Tissue Mobilization spine Body Location B QL/ES Mobilization Type Rolling Intensity/Depth Moderate Body Position Sidelying glutes Body Location L piriformis and sup glutes Mobilization Type Rolling Intensity/Depth Moderate Body Position Sidelying Neuro Re-Education Treatment Balance Activities hurdles Details 1# wts on ankles Equipment light rail use, 6 hurdles Comments recip x6 foam Comments WBOS and NBOS EC tilt board Details 1. fwd/back facing 2. lat facing Comments 1. wt shifts 2. balance EC 3. balance head turns PT-OP-R Modalities Start: 05/28/24 10:36 Freq: Status: Active Protocol: Document 07/26/24 14:54 [facility] (Rec: 07/26/24 17:48 [facility] [id number]) Electric Stimulation Electric Stimulation Interferential Current (IFC) Target/Sweep Sweep High/Low High Combined With Heat/Cold Hot Pack Comments 10 min, prone, pillow under LEs. PT-OP-T Assessment and Plan Start: 05/28/24 10:36 Freq: Status: Active Protocol: Document 07/26/24 14:54 [facility] (Rec: 07/26/24 17:48 [facility] [id number]) Physical Therapy Assessment Goals gait Short Term Goal (STG) Pt will be able to amb safely with SPC 07/09-amb safey w/FWW and starting to furniture walk STG Duration 07/27 Intermediate Goal (LTG) Pt will be able to amb safely without AD w/o significant gait deviations. 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 07/09-slow progress LTG Duration 09/05 Assessment Summary Assessment Pt was challenged by balance activities and strengthening today and was fatigued after work today. Physical Therapy Plan Frequency and Duration Frequency of Treatment 2x/Week Duration of treatment (weeks) 12 Plan of Care Start Date 06/13/24 Plan of Care End Date 09/05/24 Next Visit Focus/Plan Next Note Type Treatment Note Next Visit Plan TKE for control of knee ext. cont to advance core and LE strength and balance
--- NOTE | 2024-07-31 12:28 | PT.OTN ---
Current Diagnoses Bilateral primary osteoarthritis of hip (07/31/24) Spondylosis without myelopathy or radiculopathy, lumbar region (07/31/24) Difficulty in walking, not elsewhere classified (07/31/24) Abnormal posture (07/31/24) Strain of muscle, fascia and tendon of lower back, initial encounter (07/31/24) Physical Therapy Treatment Note PT-OP-A Visit Information Start: 05/28/24 10:36 Freq: Status: Active Protocol: Document 07/31/24 10:48 [facility] (Rec: 07/31/24 12:28 [facility] [id number]) Out-Patient Physical Therapy Visit Information Visit Information Visit Type Treatment Note Visit Start Time 10:48 Visit Stop Time 11:33 Visit Number 14 Number of CHRONIC MANAGER Visits 1 Evaluation Information Evaluation Date 06/13/24 PT-OP-B Current Condition Start: 05/28/24 10:36 Freq: Status: Active Protocol: Document 06/13/24 11:36 [facility] (Rec: 06/13/24 12:32 [facility] [id number]) Current Condition History of Current Condition Onset Date mid Mar Current Complaints LBP, leg pain and weakness History of Current Condition Pt had L NIKA 1.5 year ago. 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 She was doing everything regular at home and started feeling like seh wasn't getting as much exercise and tried some of her old PT exercises and was doing a lot of sit to stands. Then her LB to ant hips and nto med thigh. She went to see doctor and he thought is was inflamed pelvic flexor muscles and gave her a shot in her bottom. helped for 2 days She went on a 1 week trip and had to help her walk with a car. Rajesh came back, started on course of steroids (felt better at day 2) then after the 6 days went back to back. She was also taking anti inflamatory meds and tramadol . She is still takng both of these along w/naproxen. Xray has shown degeneration in LB. R hip has moderate deteriation . Did stop alchol last september and lost 25 lbs. She feels like she lost muscle. Getting numb through L leg down through toes on L leg. Encouraged to see spine doctor and has an appt for Jul 10 w/a spine docor (non operative). Hoping to consider injection. Encouraged by all doctors she has seen so far, that PT will help. Did not have back pain prior to this. Was fully functional to get up/down from the ground. She has fallen 2x d/t legs giving out even though she is careful. One was new years yoli and seh was straightening the table and had one hand on the table and reached and leg gave out. She was at dinner day and was holding husbands arm and when did small step down lgs gave out. Doing exercsies from doctor and they don't inc pain Prior Treatments and Tests MRI IMPRESSION: Multiple levels of significant spine degenerative change can be seen. At the T11-T12 level, there is a central right disc extrusion seen. 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 She's mindful of how she's walking with FWW. She had a good sore in back after last session. It felt like I'd exercised. She's been doing the sitting exercise bringing her toes up 3-4 times a day and thinks it's getting better . Her upper neck has been tighter this week. She cancelled next appt per MD as she was advised to lie low for two days following injection. She notices she's using her arms more because her wrists and shoulders are starting to hurt. PT-OP-G Mobility & Gait Start: 05/28/24 10:36 Freq: Status: Active Protocol: Document 06/13/24 11:36 [facility] (Rec: 06/13/24 12:32 [facility] [id number]) OP Gait Assessment Comments Gait Comments dec stance time B w/SPC and dec foot clearance and asks to hold PT arm w/FWW after PT edu more even gait and improved foot clearance and less evidence for imbalance PT-OP-J Posture/Palpation/Skin Start: 05/28/24 10:36 Freq: Status: Active Protocol: Document 06/13/24 11:36 [facility] (Rec: 06/13/24 12:32 [facility] [id number]) Posture Evaluation Comments Posture Comments L pelvic shear, L iliac crest higher, R torso rotation PT-OP-K Range of Motion Start: 05/28/24 10:36 Freq: Status: Active Protocol: Document 06/13/24 11:36 [facility] (Rec: 06/13/24 15:41 [facility] [id number]) Lumbar Spine Range of Motion Lumbar Spine Active Percentage Flexion 20 Extension 5 Lateral Flexion Left 20 Lateral Flexion Right 20 ROM Limitations Pain PT-OP-L Special Tests Start: 05/28/24 10:36 Freq: Status: Active Protocol: Document 06/13/24 11:36 [facility] (Rec: 06/13/24 12:32 [facility] [id number]) Special Tests Lumbar Spine Special Tests Slump Test Results positive L PT-OP-M Strength Start: 05/28/24 10:36 Freq: Status: Active Protocol: Document 07/09/24 13:03 [facility] (Rec: 07/09/24 14:03 [facility] [id number]) Hip Strength Hip Manual Muscle Testing Right Flexion (L2) 3+ Fair+ Abduction 3- Fair- External Rotation 4- Good- Internal Rotation 4- Good- Left Flexion (L2) 3+ Fair+ Abduction 3- Fair- External Rotation 3+ Fair+ Internal Rotation 4 Good Knee Strength Knee Manual Muscle Testing Right Flexion (S2) 4 Good Extension (L3) 4 Good Left Flexion (S2) 4- Good- Extension (L3) 3+ Fair+ Ankle/Foot Strength Ankle and Foot Manual Muscle Testing Right Dorsiflexion (L4) 3+ Fair+ Plantarflexion (S1) 4 Good Left Dorsiflexion (L4) 4- Good- Plantarflexion (S1) 4 Good Comments PF tested seated B PT-OP-Q Treatments Start: 05/28/24 10:36 Freq: Status: Active Protocol: Document 07/31/24 10:48 [facility] (Rec: 07/31/24 12:28 [facility] [id number]) Therapeutic Exercises Sitting Exercises DF Side bilateral Equipment Used wo and w L1 Tb Reps/Minutes 20 ea Comments cues for eccentric control, improves form. Standing Exercises TKE Standing Exercise Name standing in FWW Side left Resistance Lvl 3 Tb (CHRONIC MANAGER holding) Reps/Minutes x12 Comments vc for full knee extension and hold Neuro Re-Education Treatment Balance Activities hurdles Details 1# wts on ankles Equipment light rail use, 6 hurdles Comments recip fwd 4 x10 ft recip lat 2 x10 ft ea tilt board Details 1. fwd/back facing 2. lat facing Comments 1. wt shifts 2. balance EC 3. balance head turns 4. NBOS lat only: balance EC; head turns. PT-OP-R Modalities Start: 05/28/24 10:36 Freq: Status: Active Protocol: Document 07/31/24 10:48 [facility] (Rec: 07/31/24 12:28 [facility] [id number]) Electric Stimulation Electric Stimulation Interferential Current (IFC) Body Location lumbar Intensity 40 Target/Sweep Sweep High/Low High Combined With Heat/Cold Hot Pack Comments 10 min, prone, pillow under LEs. PT-OP-T Assessment and Plan Start: 05/28/24 10:36 Freq: Status: Active Protocol: Document 07/31/24 10:48 [facility] (Rec: 07/31/24 12:28 [facility] [id number]) Physical Therapy Assessment Goals gait Short Term Goal (STG) Pt will be able to amb safely with SPC 2-amb safey w/FWW and starting to furniture walk STG Duration 07/27 Trip Motor Operator Goal (LTG) Pt will be able to amb safely without AD w/o significant gait deviations. 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 07/09-slow progress LTG Duration 09/05 Assessment Summary Assessment Argelia has appointment tomorrow for cortisone injection. Pt presents with FWW and L>R LE numbness which is unchanged throughout session. She is challenged with balance eyes closed in WBOS and NBOS and needs occasional reminders for proximation to FWW then self- corrects in session. She requires initial cues for maintaining upright posture for reciprocal hurdles and 5 step ups w/ 1# ankle weights, and demos improved form and foot clearance until fatigued and LLE starts to clip step. Purple slip provided to pt for scheduling further appointments per POC. Physical Therapy Plan Frequency and Duration Frequency of Treatment 2x/Week Duration of treatment (weeks) 12 Plan of Care Start Date 06/13/24 Plan of Care End Date 09/05/24 Therapeutic Interventions Therapeutic Interventions Balance Training,Gait Training ,Home Exercise Program,Joint Mobilizations,Manual Therapy, Neuromuscular Re-education, Patient/Caregiver Education, Self-Care/Home Management,Soft Tissue Mobilization,Taping, Therapeutic Activities, Therapeutic Exercises Modalities Cold Pack/Ice Massage,Electric Stimulation,Hot Packs, Infrared Therapy,Traction- Mechanical,Ultrasound Next Visit Focus/Plan Next Note Type Treatment Note Next Visit Plan Next: Assess response to cortisone injection 08/01. POC: TKE for control of knee ext. cont to advance core and LE strength and balance
--- NOTE | 2024-08-09 12:36 | PT.OTN ---
Current Diagnoses Bilateral primary osteoarthritis of hip (08/09/24) Spondylosis without myelopathy or radiculopathy, lumbar region (08/09/24) Difficulty in walking, not elsewhere classified (08/09/24) Abnormal posture (08/09/24) Strain of muscle, fascia and tendon of lower back, initial encounter (08/09/24) Physical Therapy Treatment Note PT-OP-A Visit Information Start: 05/28/24 10:36 Freq: Status: Active Protocol: Document 08/09/24 11:34 [facility] (Rec: 08/09/24 12:35 [facility] [id number]) Out-Patient Physical Therapy Visit Information Visit Information Visit Type Progress Note Visit Start Time 11:35 Visit Stop Time 12:15 Visit Number 15 Number of POWERHOUSE TENDER Visits 0 PT-OP-B Current Condition Start: 05/28/24 10:36 Freq: Status: Active Protocol: Document 06/13/24 11:36 [facility] (Rec: 06/13/24 12:32 [facility] [id number]) Current Condition History of Current Condition Onset Date mid Mar Current Complaints LBP, leg pain and weakness History of Current Condition Pt had L NIKA 1.5 year ago. 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 She was doing everything regular at home and started feeling like seh wasn't getting as much exercise and tried some of her old PT exercises and was doing a lot of sit to stands. Then her LB to ant hips and nto med thigh. She went to see doctor and he thought is was inflamed pelvic flexor muscles and gave her a shot in her bottom. helped for 2 days She went on a 1 week trip and had to help her walk with a car. Rajesh came back, started on course of steroids (felt better at day 2) then after the 6 days went back to back. She was also taking anti inflamatory meds and tramadol . She is still takng both of these along w/naproxen. Xray has shown degeneration in LB. R hip has moderate deteriation . Did stop alchol last september and lost 25 lbs. She feels like she lost muscle. Getting numb through L leg down through toes on L leg. Encouraged to see spine doctor and has an appt for Jul 10 w/a spine docor (non operative). Hoping to consider injection. Encouraged by all doctors she has seen so far, that PT will help. Did not have back pain prior to this. Was fully functional to get up/down from the ground. She has fallen 2x d/t legs giving out even though she is careful. One was new years yoli and seh was straightening the table and had one hand on the table and reached and leg gave out. She was at dinner day and was holding husbands arm and when did small step down lgs gave out. Doing exercsies from doctor and they don't inc pain Prior Treatments and Tests MRI IMPRESSION: Multiple levels of significant spine degenerative change can be seen. At the T11-T12 level, there is a central right disc extrusion seen. 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 She can take some small steps w/o walker now. PT-OP-G Mobility & Gait Start: 05/28/24 10:36 Freq: Status: Active Protocol: Document 06/13/24 11:36 [facility] (Rec: 06/13/24 12:32 [facility] [id number]) OP Gait Assessment Comments Gait Comments dec stance time B w/SPC and dec foot clearance and asks to hold PT arm w/FWW after PT edu more even gait and improved foot clearance and less evidence for imbalance PT-OP-J Posture/Palpation/Skin Start: 05/28/24 10:36 Freq: Status: Active Protocol: Document 06/13/24 11:36 [facility] (Rec: 06/13/24 12:32 [id number] Posture Evaluation Comments Posture Comments L pelvic shear, L iliac crest higher, R torso rotation PT-OP-K Range of Motion Start: 05/28/24 10:36 Freq: Status: Active Protocol: Document 06/13/24 11:36 [facility] (Rec: 06/13/24 15:41 [facility] [id number]) Lumbar Spine Range of Motion Lumbar Spine Active Percentage Flexion 20 Extension 5 Lateral Flexion Left 20 Lateral Flexion Right 20 ROM Limitations Pain PT-OP-L Special Tests Start: 05/28/24 10:36 Freq: Status: Active Protocol: Document 06/13/24 11:36 [facility] (Rec: 06/13/24 12:32 [facility] [id number]) Special Tests Lumbar Spine Special Tests Slump Test Results positive L PT-OP-M Strength Start: 05/28/24 10:36 Freq: Status: Active Protocol: Document 08/09/24 11:34 [facility] (Rec: 08/09/24 12:35 [facility] [id number]) Hip Strength Hip Manual Muscle Testing Right Flexion (L2) 3+ Fair+ Abduction 3- Fair- External Rotation 4 Good Internal Rotation 4+ Good+ Left Flexion (L2) 3+ Fair+ Abduction 2+ Poor+ External Rotation 3+ Fair+ Internal Rotation 4+ Good+ Knee Strength Knee Manual Muscle Testing Right Flexion (S2) 4 Good Extension (L3) 4 Good Left Flexion (S2) 4- Good- Extension (L3) 3+ Fair+ Ankle/Foot Strength Ankle and Foot Manual Muscle Testing Right Dorsiflexion (L4) 3+ Fair+ Plantarflexion (S1) 4+ Good+ Left Dorsiflexion (L4) 3+ Fair+ Plantarflexion (S1) 4+ Good+ Comments PF tested seated B PT-OP-Q Treatments Start: 05/28/24 10:36 Freq: Status: Active Protocol: Document 08/09/24 11:34 [facility] (Rec: 08/09/24 12:35 [facility] [id number]) Therapeutic Exercises Supine Exercises bridge Side bilateral Equipment Used L1 band around knees Reps/Minutes 15 Comments cues segmental and glute squeeze pelvic tilt Supine Exercise Name 1. TA july (RLE about 110 deg flex) Side bilateral Reps/Minutes 15 ea Standing Exercises TKE Standing Exercise Name standing in FWW Side left Resistance Lvl 1 band Reps/Minutes x15 Comments VC for control w/TKE DF Standing Exercise Name back at rail Side bilateral Reps/Minutes 20 hip abd Standing Exercise Name sidestep Side bilateral Equipment Used 2# ankle weights Reps/Minutes 15 ft ea Comments rail Neuro Re-Education Treatment Balance Activities hurdles Equipment light rail use, 6 hurdles Comments recip fwd w/rail and PT hand x6 sidestep x1 B tilt board Details 1. fwd/back facing 2. lat facing Comments 1. wt shifts 2. balance PT-OP-R Modalities Start: 05/28/24 10:36 Freq: Status: Active Protocol: Document 08/09/24 11:34 [facility] (Rec: 08/09/24 12:36 [facility] [id number]) Electric Stimulation Electric Stimulation Interferential Current (IFC) Body Location lumbar Patient Position Prone Combined With Heat/Cold Hot Pack PT-OP-T Assessment and Plan Start: 05/28/24 10:36 Freq: Status: Active Protocol: Document 08/09/24 11:34 [facility] (Rec: 08/09/24 12:35 [facility] [id number]) Physical Therapy Assessment Goals gait Short Term Goal (STG) Pt will be able to amb safely with SPC 07/09-amb safey w/FWW and starting to furniture walk 08/09-able to take small steps fwd w/o walker but significant lat lean and not safe for distance STG Duration 08/28 Music Artist Goal (LTG) Pt will be able to amb safely without AD w/o significant gait deviations. 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 07/09-slow progress 08/09-limited progress LTG Duration 10/18 Assessment Summary Assessment Pt is making limited progress at this time and was encouraged to call her spinal sport med doctor to let him know that no major changes have occurred in the past 8 days since injection and ask for referral to spinal surgeon . She has made some progress and was able to take some small steps w/o UE support today but is still very unsteady and MMT are very weak . Cont PT to work on her strength and balance. Physical Therapy Plan Frequency and Duration Frequency of Treatment 2x/Week Duration of treatment (weeks) 10 Plan of Care Start Date 08/09/24 Plan of Care End Date 10/18/24 Therapeutic Interventions Therapeutic Interventions Balance Training,Gait Training ,Home Exercise Program,Joint Mobilizations,Manual Therapy, Neuromuscular Re-education, Patient/Caregiver Education, Self-Care/Home Management,Soft Tissue Mobilization,Taping, Therapeutic Activities, Therapeutic Exercises Modalities Cold Pack/Ice Massage,Electric Stimulation,Hot Packs, Infrared Therapy,Traction- Mechanical,Ultrasound Next Visit Focus/Plan Next Note Type Treatment Note Next Visit Plan TKE for control of knee ext. cont to advance core and LE strength and balance
--- NOTE | 2024-08-09 12:36 | PT.OPPOC ---
Physical, Occupational & Speech Therapy At [facility] Current Diagnoses Bilateral primary osteoarthritis of hip (08/09/24) Spondylosis without myelopathy or radiculopathy, lumbar region (08/09/24) Difficulty in walking, not elsewhere classified (08/09/24) Abnormal posture (08/09/24) Strain of muscle, fascia and tendon of lower back, initial encounter (08/09/24) Visit Care Team Role Provider Type Shyam Martinez DO Family Provider Physician Primary Care Provider Specialty: Family Practice Address: [address] [place] [address], [facility] Email: [email or web address] Chanell Lr PA-C Attending Provider Advanced Mold Unloader Referring Provider Specialty: Medical Wound Care Address: [address] [place] [address], [facility] Email: [email or web address] Plan Of Care PT-OP-B Current Condition Start: 05/28/24 10:36 Freq: Status: Active Protocol: Document 06/13/24 11:36 [facility] (Rec: 06/13/24 12:32 [facility] [id number]) Current Condition History of Current Condition Onset Date mid Mar Current Complaints LBP, leg pain and weakness History of Current Condition Pt had L NIKA 1.5 year ago. 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 She was doing everything regular at home and started feeling like h wasn't getting as much exercise and tried some of her old PT exercises and was doing a lot of sit to stands. Then her LB to ant hips and nto med thigh. She went to see doctor and he thought is was inflamed pelvic flexor muscles and gave her a shot in her bottom. helped for 2 days She went on a 1 week trip and had to help her walk with a car. Rajesh came back, started on course of steroids (felt better at day 2) then after the 6 days went back to back. She was also taking anti inflamatory meds and tramadol . She is still takng both of these along w/naproxen. Xray has shown degeneration in LB. R hip has moderate deteriation . Did stop alchol last september and lost 25 lbs. She feels like she lost muscle. Getting numb through L leg down through toes on L leg. Encouraged to see spine doctor and has an appt for Jul 10 w/a spine docor (non operative). Hoping to consider injection. Encouraged by all doctors she has seen so far, that PT will help. Did not have back pain prior to this. Was fully functional to get up/down from the ground. She has fallen 2x d/t legs giving out even though she is careful. One was new years yoli and seh was straightening the table and had one hand on the table and reached and leg gave out. She was at dinner and was holding husbands arm and when did small step down lgs gave out. Doing exercsies from doctor and they don't inc pain Prior Treatments and Tests MRI IMPRESSION: Multiple levels of significant spine degenerative change can be seen. At the T11-T12 level, there is a central right disc extrusion seen. 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 (Rec: 08/09/24 12:35 [facility] [id number]) Physical Therapy Assessment Goals gait Short Term Goal (STG) Pt will be able to amb safely with SPC 07/09-amb safey w/FWW and starting to furniture walk 08/09-able to take small steps fwd w/o walker but significant lat lean and not safe for distance STG Duration 08/28 Event Staff Member Goal (LTG) Pt will be able to amb safely without AD w/o significant gait deviations. 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 07/09-slow progress 08/09-limited progress LTG Duration 10/18 Assessment Summary Assessment Pt is making limited progress at this time and was encouraged to call her spinal sport med doctor to let him know that no major changes have occurred in the past 8 days since injection and ask for referral to spinal surgeon . She has made some progress and was able to take some small steps w/o UE support today but is still very unsteady and MMT are very weak . Cont PT to work on her strength and balance. Physical Therapy Plan Frequency and Duration Frequency of Treatment 2x/Week Duration of treatment (weeks) 10 Plan of Care Start Date 08/09/24 Plan of Care End Date 10/18/24 Therapeutic Interventions Therapeutic Interventions Balance Training,Gait Training ,Home Exercise Program,Joint Mobilizations,Manual Therapy, Neuromuscular Re-education, Patient/Caregiver Education, Self-Care/Home Management,Soft Tissue Mobilization,Taping, Therapeutic Activities, Therapeutic Exercises Modalities Cold Pack/Ice Massage,Electric Stimulation,Hot Packs, Infrared Therapy,Traction- Mechanical,Ultrasound Next Visit Focus/Plan Next Note Type Treatment Note Next Visit Plan TKE for control of knee ext. cont to advance core and LE strength and balance Plan of Care Dates Plan of Care Start Date 08/09/24 Plan of Care End Date 10/18/24 Electronically Signed by: Sara Eduardo, PT 08/09/24 [id number] If you are in agreement with this Plan of Care, please return a signed and dated copy. I have reviewed this Plan of Care and certify that the skilled therapy services above are required to meet the patient?s needs. Physician Signature Date Printed Name and Credentials Clinical Instructor Signature Printed Name and Credentials
--- NOTE | 2024-08-13 13:49 | PT.OTN ---
Current Diagnoses Bilateral primary osteoarthritis of hip (08/13/24) Spondylosis without myelopathy or radiculopathy, lumbar region (08/13/24) Difficulty in walking, not elsewhere classified (08/13/24) Abnormal posture (08/13/24) Strain of muscle, fascia and tendon of lower back, initial encounter (08/13/24) Physical Therapy Treatment Note PT-OP-A Visit Information Start: 05/28/24 10:36 Freq: Status: Active Protocol: Document 08/13/24 11:34 [facility] (Rec: 08/13/24 13:49 [facility] [id number]) Out-Patient Physical Therapy Visit Information Visit Information Visit Type Treatment Note Visit Start Time 11:35 Visit Stop Time 12:15 Visit Number 16 Number of BRANCH MAKER Visits 0 PT-OP-B Current Condition Start: 05/28/24 10:36 Freq: Status: Active Protocol: Document 06/13/24 11:36 [facility] (Rec: 06/13/24 12:32 [facility] [id number]) Current Condition History of Current Condition Onset Date mid Mar Current Complaints LBP, leg pain and weakness History of Current Condition Pt had L NIKA 1.5 year ago. 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 She was doing everything regular at home and started feeling like seh wasn't getting as much exercise and tried some of her old PT exercises and was doing a lot of sit to stands. Then her LB to ant hips and nto med thigh. She went to see doctor and he thought is was inflamed pelvic flexor muscles and gave her a shot in her bottom. helped for 2 days She went on a 1 week trip and had to help her walk with a car. Rajesh came back, started on course of steroids (felt better at day 2) then after the 6 days went back to back. She was also taking anti inflamatory meds and tramadol . She is still takng both of these along w/naproxen. Xray has shown degeneration in LB. R hip has moderate deteriation . Did stop alchol last september and lost 25 lbs. She feels like she lost muscle. Getting numb through L leg down through toes on L leg. Encouraged to see spine doctor and has an appt for Jul 10 w/a spine docor (non operative). Hoping to consider injection. Encouraged by all doctors she has seen so far, that PT will help. Did not have back pain prior to this. Was fully functional to get up/down from the ground. She has fallen 2x d/t legs giving out even though she is careful. One was new years yoli and seh was straightening the table and had one hand on the table and reached and leg gave out. She was at dinner day and was holding husbands arm and when did small step down lgs gave out. Doing exercsies from doctor and they don't inc pain Prior Treatments and Tests MRI IMPRESSION: Multiple levels of significant spine degenerative change can be seen. At the T11-T12 level, there is a central right disc extrusion seen. 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 PT-OP-C Subjective Start: 05/28/24 10:36 Freq: Status: Active Protocol: Document 08/13/24 11:34 [facility] (Rec: 08/13/24 13:49 [place] [id number]) OP-PT Subjective Patient Comments Patient Comments Pt reports L LUIS M has given out on her some PT-OP-G Mobility & Gait Start: 05/28/24 10:36 Freq: Status: Active Protocol: Document 06/13/24 11:36 [facility] (Rec: 06/13/24 12:32 [place] [id number]) OP Gait Assessment Comments Gait Comments dec stance time B w/SPC and dec foot clearance and asks to hold PT arm w/FWW after PT edu more even gait and improved foot clearance and less evidence for imbalance PT-OP-J Posture/Palpation/Skin Start: 05/28/24 10:36 Freq: Status: Active Protocol: Document 06/13/24 11:36 [facility] (Rec: 06/13/24 12:32 [place] [id number]) Posture Evaluation Comments Posture Comments L pelvic shear, L iliac crest higher, R torso rotation PT-OP-K Range of Motion Start: 05/28/24 10:36 Freq: Status: Active Protocol: Document 06/13/24 11:36 [facility] (Rec: 06/13/24 15:41 [id number] Lumbar Spine Range of Motion Lumbar Spine Active Percentage Flexion 20 Extension 5 Lateral Flexion Left 20 Lateral Flexion Right 20 ROM Limitations Pain PT-OP-L Special Tests Start: 05/28/24 10:36 Freq: Status: Active Protocol: Document 06/13/24 11:36 [facility] (Rec: 06/13/24 12:32 [facility] [id number]) Special Tests Lumbar Spine Special Tests Slump Test Results positive L PT-OP-M Strength Start: 05/28/24 10:36 Freq: Status: Active Protocol: Document 08/09/24 11:34 [facility] (Rec: 08/09/24 12:35 [facility] [id number]) Hip Strength Hip Manual Muscle Testing Right Flexion (L2) 3+ Fair+ Abduction 3- Fair- External Rotation 4 Good Internal Rotation 4+ Good+ Left Flexion (L2) 3+ Fair+ Abduction 2+ Poor+ External Rotation 3+ Fair+ Internal Rotation 4+ Good+ Knee Strength Knee Manual Muscle Testing Right Flexion (S2) 4 Good Extension (L3) 4 Good Left Flexion (S2) 4- Good- Extension (L3) 3+ Fair+ Ankle/Foot Strength Ankle and Foot Manual Muscle Testing Right Dorsiflexion (L4) 3+ Fair+ Plantarflexion (S1) 4+ Good+ Left Dorsiflexion (L4) 3+ Fair+ Plantarflexion (S1) 4+ Good+ Comments PF tested seated B PT-OP-Q Treatments Start: 05/28/24 10:36 Freq: Status: Active Protocol: Document 08/13/24 11:34 [facility] (Rec: 08/13/24 13:49 [facility] [id number]) Neuro Re-Education Treatment Balance Activities foam Comments WBOS and NBOS EC tilt board Details 1. fwd/back facing 2. lat facing Comments 1. wt shifts 2. balance Other Activities PNF Reps/Duration 8 min Comments 1. rhythmic initiation post dep L pelvis 2. post dep L pelvis sustained holds progresed to w/LE pattern w/PT holding pt into abd 3. post dep L pelvis COI Self-Care/Home Management Treatment Education Other Education 10 min : edu on meaning of stenosis in MRI report to spinal canal and foramina. Edu that at this time since not a lot of progress w/PT, pt to hold d/t weakness cont and numbness seems to be getting worse. Edu to follow up further on referral to surgeon PT-OP-R Modalities Start: 05/28/24 10:36 Freq: Status: Active Protocol: Document 08/09/24 11:34 [facility] (Rec: 08/09/24 12:36 [facility] [id number]) Electric Stimulation Electric Stimulation Interferential Current (IFC) Body Location lumbar Patient Position Prone Combined With Heat/Cold Hot Pack PT-OP-T Assessment and Plan Start: 05/28/24 10:36 Freq: Status: Active Protocol: Document 08/13/24 11:34 [facility] (Rec: 08/13/24 13:49 [facility] [id number]) Physical Therapy Assessment Goals gait Short Term Goal (STG) Pt will be able to amb safely with SPC 07/09-amb safey w/FWW and starting to furniture walk 08/09-able to take small steps fwd w/o walker but significant lat lean and not safe for distance STG Duration 08/28 Agricultural Technician Goal (LTG) Pt will be able to amb safely without AD w/o significant gait deviations. 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 07/09-slow progress 08/09-limited progress LTG Duration 10/18 Assessment Summary Assessment At this time, since limited progress w/PT and cont LLE numbness w/worsening recently, encouraged pt to hold PT and she is agreeable. Pt to work on getting in w/spinal surgeon for further evaluation and follow up w/PT pending those results. Physical Therapy Plan Frequency and Duration Frequency of Treatment 2x/Week Duration of treatment (weeks) 10 Plan of Care Start Date 08/09/24 Plan of Care End Date 10/18/24 Next Visit Focus/Plan Next Note Type Progress Note Next Visit Plan assess where pt is after time off from therapy if sent back
--- NOTE | 2024-09-12 12:32 | PT.OPDS ---
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 She was doing everything regular at home and started feeling like h wasn't getting as much exercise and tried some of her old PT exercises and was doing a lot of sit to stands. Then her LB to ant hips and nto med thigh. She went to see doctor and he thought is was inflamed pelvic flexor muscles and gave her a shot in her bottom. helped for 2 days She went on a 1 week trip and had to help her walk with a car. Rajesh came back, started on course of steroids (felt better at day 2) then after the 6 days went back to back. She was also taking anti inflamatory meds and tramadol . She is still takng both of these along w/naproxen. Xray has shown degeneration in LB. R hip has moderate deteriation . Did stop alchol last september and lost 25 lbs. She feels like she lost muscle. Getting numb through L leg down through toes on L leg. Encouraged to see spine doctor and has an appt for Jul 10 w/a spine docor (non operative). Hoping to consider injection. Encouraged by all doctors she has seen so far, that PT will help. Did not have back pain prior to this. Was fully functional to get up/down from the ground. She has fallen 2x d/t legs giving out even though she is careful. One was new years yoli and seh was straightening the table and had one hand on the table and reached and leg gave out. She was at dinner day and was holding husbands arm and when did small step down lgs gave out. Doing exercsies from doctor and they don't inc pain Prior Treatments and Tests MRI IMPRESSION: Multiple levels of significant spine degenerative change can be seen. At the T11-T12 level, there is a central right disc extrusion seen. 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 PT-OP-C Subjective Start: 05/28/24 10:36 Freq: Status: Active Protocol: Document 08/13/24 11:34 [facility] (Rec: 08/13/24 13[id number]-PT Subjective Patient Comments Patient Comments Pt reports L LE has given out on her some PT-OP-G Mobility & Gait Start: 05/28/24 10:36 Freq: Status: Active Protocol: Document 06/13/24 11:36 [facility] (Rec: 06/13/24 12:32 [facility] [id number]) OP Gait Assessment Comments Gait Comments dec stance time B w/SPC and dec foot clearance and asks to hold PT arm w/FWW after PT edu more even gait and improved foot clearance and less evidence for imbalance PT-OP-J Posture/Palpation/Skin Start: 05/28/24 10:36 Freq: Status: Active Protocol: Document 06/13/24 11:36 [facility] (Rec: 06/13/24 12:32 [facility] [id number]) Posture Evaluation Comments Posture Comments L pelvic shear, L iliac crest higher, R torso rotation PT-OP-K Range of Motion Start: 05/28/24 10:36 Freq: Status: Active Protocol: Document 06/13/24 11:36 [facility] (Rec: 06/13/24 15:41 [facility] [id number]) Lumbar Spine Range of Motion Lumbar Spine Active Percentage Flexion 20 Extension 5 Lateral Flexion Left 20 Lateral Flexion Right 20 ROM Limitations Pain PT-OP-L Special Tests Start: 05/28/24 10:36 Freq: Status: Active Protocol: Document 06/13/24 11:36 [facility] (Rec: 06/13/24 12:32 [facility] [id number]) Special Tests Lumbar Spine Special Tests Slump Test Results positive L PT-OP-M Strength Start: 05/28/24 10:36 Freq: Status: Active Protocol: Document 08/09/24 11:34 [facility] (Rec: 08/09/24 12:35 [facility] [id number]) Hip Strength Hip Manual Muscle Testing Right Flexion (L2) 3+ Fair+ Abduction 3- Fair- External Rotation 4 Good Internal Rotation 4+ Good+ Left Flexion (L2) 3+ Fair+ Abduction 2+ Poor+ External Rotation 3+ Fair+ Internal Rotation 4+ Good+ Knee Strength Knee Manual Muscle Testing Right Flexion (S2) 4 Good Extension (L3) 4 Good Left Flexion (S2) 4- Good- Extension (L3) 3+ Fair+ Ankle/Foot Strength Ankle and Foot Manual Muscle Testing Right Dorsiflexion (L4) 3+ Fair+ Plantarflexion (S1) 4+ Good+ Left Dorsiflexion (L4) 3+ Fair+ Plantarflexion (S1) 4+ Good+ Comments PF tested seated B PT-OP-T Assessment and Plan Start: 05/28/24 10:36 Freq: Status: Active Protocol: Document 09/12/24 12:31 [facility] (Rec: 09/12/24 12:32 [facility] [id number]) Physical Therapy Assessment Goals gait Short Term Goal (STG) Pt will be able to amb safely with SPC 07/09-amb safey w/FWW and starting to furniture walk 08/09-able to take small steps fwd w/o walker but significant lat lean and not safe for distance STG Duration 08/28 Film Loader Goal (LTG) Pt will be able to amb safely without AD w/o significant gait deviations. 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 07/09-slow progress 08/09-limited progress LTG Duration 10/18 Assessment Summary Assessment Pt made limited progress in PT even w/injection so was encouraged to see spinal neurosurgeon. Pt is set for surgery and plan for DC at this time. Physical Therapy Plan Discharge Physical Therapy Discharge Reasons Plateau in Progress
== END 2024-09-13 09:44 | disposition home or self-care (01) ==
LOC: PHYS 11:30
PROVIDERS: Family Provider Family Medicine; PCP Family Medicine; Referring Provider Physician Assistant; Visit Provider Physician Assistant
DX: M16.0 Bilateral primary osteoarthritis of hip (principal); S39.012A Strain of muscle, fascia and tendon of lower back, initial encounter; M47.816 Spondylosis without myelopathy or radiculopathy, lumbar region; R29.3 Abnormal posture; R26.2 Difficulty in walking, not elsewhere classified
CPT/HCPCS: 97014; 97032; 97110; 97112; 97116; 97140; 97163; 97530; 97535; G0283

== ENCOUNTER → 2024-08-26 09:10 | Outpatient (CLI) | payer MEDICARE, OTHER, SELFPAY ==
--- NOTE | 2024-08-26 09:13 | DI.MRI.S_ITS ---
PROCEDURE: MR CERVICAL SPINE WO CON INDICATIONS: MYELOPATHY TECHNIQUE: Noncontrast sagittal T1 spin echo and T2 fast spin echo, sagittal STIR, foraminal oblique sagittal T2 fast spin echo, and axial gradient echo or T2 fast spin echo through the cervical spine. COMPARISON: None. FINDINGS: Alignment and Curvature: Reversal of the normal cervical lordosis. Degenerative grade 1 anterior spondylolisthesis C4-5 Bone Marrow: Degenerative endplate changes Spinal Cord: Focal gliosis multilevel as below Paraspinous Soft Tissues: No paravertebral masses. Prevertebral soft tissues are normal in thickness. C2-C3: Hypertrophic arthropathy. No central or foraminal stenosis C3-C4: Hypertrophic arthropathy. No central stenosis. Moderate bilateral foraminal stenosis greater on the right C4-C5: Posterior disc osteophyte complex and arthropathy. Mild central stenosis. Focal gliotic hyperintensity noted in the anterolateral right cord. Moderate bilateral foraminal stenosis. C5-C6: Posterior disc osteophyte complex. Moderate central stenosis. There is flattening the ventral cord. Hypertrophic arthropathy. Moderate bilateral foraminal stenosis greater on the left C6-C7: Posterior disc osteophyte complex. Moderate central stenosis. Cord hyperintensity reflects myelomalacia or gliosis. Moderate left and no right foraminal stenosis C7-T1: No central stenosis. Hypertrophic arthropathy. Severe left and no right foraminal stenosis IMPRESSION: Multilevel degenerative disc disease and arthropathy results in varying degrees of central and foraminal stenosis including moderate central stenosis C5-6 and C6-7. Cord hyperintensity at the C4-5 and C6-7 levels reflects cord myelomalacia or gliosis with minimal volume loss Approved by: Asif Smith M.D. on 08/27/2024 at 17:01
--- NOTE | 2024-08-26 09:13 | DI.MRI.S_ITS ---
PROCEDURE: MR THORACIC SPINE WO CON INDICATIONS: MYELOPATHY TECHNIQUE: Noncontrast sagittal T1 spine echo and T2 fast spin echo, sagittal STIR, and T2 fast spin echo through the thoracic spine. COMPARISON: None. FINDINGS: Image quality: Excellent. Alignment and Curvature: There is normal bony alignment. Bone Marrow: Marrow is of normal overall signal. No acute vertebral body compression fractures. Spinal Cord: Visualized spinal cord is normal in size and signal. Paraspinous Soft Tissues: No paravertebral masses. Miscellaneous: At T11-12, asymmetric right disc subarticular protrusion indents the ventral cord. Additionally, there is a 5.5 mm left synovial cyst arising from the facet joints with impression on the left dorsal lateral cord. Overall moderate central stenosis. Arthropathy. Moderate bilateral foraminal stenosis. At T12-L1, hypertrophic arthropathy results in mild central stenosis and moderate bilateral foraminal stenosis greater on the left IMPRESSION: Degenerative disc disease at T11-12 as well as left-sided synovial cyst and arthropathy combined to result in moderate central stenosis Approved by: Asif Smith M.D. on 08/27/2024 at 17:10
== END ==
LOC: MRI 09:11
PROVIDERS: Family Provider Family Medicine; PCP Family Medicine; Referring Provider Orthopaedic Surgery Orthopaedic Surgery of the Spine; Visit Provider Orthopaedic Surgery Orthopaedic Surgery of the Spine
DX: M50.321 Other cervical disc degeneration at C4-C5 level (principal); M47.812 Spondylosis without myelopathy or radiculopathy, cervical region; M48.02 Spinal stenosis, cervical region; M43.12 Spondylolisthesis, cervical region; M51.34 Other intervertebral disc degeneration, thoracic region; M47.814 Spondylosis without myelopathy or radiculopathy, thoracic region; M48.04 Spinal stenosis, thoracic region; M71.38 Other bursal cyst, other site
CPT/HCPCS: 72141; 72146

== ENCOUNTER → 2024-08-30 14:23 | Outpatient (CLI) | payer MEDICARE, OTHER, SELFPAY ==
--- NOTE | 2024-08-30 14:54 | EKG_ITS ---
[address] [address] Test Date: 2024-08-30 Pat Name: Argelia Thurston Department: [facility] Room: Gender: Female Hall Coordinator: ISAAC : 1950 Requested By: Order Number: [id number] Reading MD: Jayesh De Leon Measurements Intervals [place] Rate: 66 P: 57 CO: 122 QRS: -44 QRSD: 90 T: 13 QT: 400 QTc: 419 Interpretive Statements Normal sinus rhythm Left axis deviation Electronically Signed On 08-31-2024 19:10:21 PDT by Jayesh De Leon
[2024-08-30 15:47] LABS: Hematocrit 42.8 % (36-46); Hemoglobin 14.4 g/dL (12.0-16.0); Mean Corpuscular HGB Conc 33.7 % (30-36); Mean Corpuscular Hemoglobin 31.8 PG (26-34); Mean Corpuscular Volume 94.5 fL (80-100); Platelet Count 202 X10^3/uL (150-400); Red Blood Cell Count 4.53 X10^6/uL (4.0-5.2); Red Cell Distribution Width 13.7 % (11.6-14.8); White Blood Cell Count 7.4 X10^3/uL (4.5-11.0)
[2024-08-30 16:26] LABS: BUN Creatinine Ratio 37.9 (6-22); Blood Urea Nitrogen 22 mg/dL (7-17); Calcium 9.3 mg/dL (8.4-10.2); Carbon Dioxide 23 mmol/L (22-32); Chloride 104 mmol/L (98-107); Estimated Glomerular Filt Rate > 60 mL/min (>60); Glucose 94 mg/dL (80-110); HEMOLYSIS < 15 (0-50); Potassium 4.3 mmol/L (3.4-5.1); Sodium 136 mmol/L (137-145)
== END ==
PROVIDERS: Family Provider Family Medicine; PCP Family Medicine; Referring Provider Physician Assistant; Visit Provider Physician Assistant
DX: Z01.818 Encounter for other preprocedural examination (principal)
CPT/HCPCS: 36415; 80048; 85027; 93005

== ENCOUNTER → 2024-09-04 14:11 | Outpatient (CLI) | payer MEDICARE, OTHER, SELFPAY ==
--- NOTE | 2024-09-04 14:12 | DI.CT.S_ITS ---
PROCEDURE: CT CHEST WO CON INDICATIONS: eval chronic smoking, f/u CT 3 months ago TECHNIQUE: Noncontrast 2.0-2.5 mm thick sections acquired from the pulmonary apices to the posterior costophrenic angles. 7 mm thick axial MIP and 5 mm coronal and sagittal reformats were then acquired. For radiation dose reduction, the following was used: automated exposure control, adjustment of mA and/or kV according to patient size. COMPARISON: [facility], CT, CT CHEST WO CON, 12/19/2021, 11:00. [facility], CT, CT LUNG LOW DOSE SCREENING, 06/21/2024, 15:35. FINDINGS: Image quality: Diagnostic. Lower Neck: No enlarged lymph nodes. Thyroid: Prior thyroidectomy with postsurgical changes. Axillae: No enlarged lymph nodes. Chest Wall: Unremarkable. Bones: No aggressive appearing bony lesions. Lungs and Pleura: No pneumothorax or pleural effusions. Mild central volvulus emphysema. Compared to previous study, previously described 5 mm left lower lobe endobronchial nodule is no longer seen suggestive of resolved mucous plug . No new suspicious pulmonary nodule is seen. Scattered atelectasis in periphery of bilateral mid to lower lung zone is seen. Heart: Heart size is normal. No pericardial effusion. Thoracic Vessels: The aorta and pulmonary arteries demonstrate normal size. Mediastinum and Shefali: No enlarged lymph nodes. Esophagus: No wall thickening. No hiatal hernia. Upper Abdomen: Visualized upper abdomen solid organs and bowel loops appear normal. IMPRESSION: 1. Interval resolution of previously noted left lower lobe endobronchial nodule suggestive of resolved mucous plug. No new suspicious pulmonary nodule is seen. Lung rads category: 2, benign findings. Annual low-dose screening CT chest as long as patient meets the criteria. 2. Other findings are all unchanged from prior study. Fleischner Society criteria for SOLID lung nodule followup. Nodule size (mm)Low-risk patientHigh-risk patient<6 (single or multiple)No routine followup.Optional CT at 12 months. 6-8 (single or multiple)CT at 6-12 months, then optional CT at 18-24 mo.CT at 6-12 months, then CT at 18-24 months. >8 (single)CT at 3 months, PET-CT, or biopsy. Same as for low-risk pts. >8 (multiple)CT at 3-6 months, then optional CT at 18-24 mo.CT at 3-6 months, then CT at 18-24 months. Fleischner Society criteria for SUB-SOLID lung nodule followup. Solitary pure ground-glass nodules<6 mm (ground glass or part solid)No followup needed. 6 mm or larger (ground glass)CT at 6-12 months to confirm persistence, then CT every 2 years until 5 years.6 mm or larger (part solid)CT at 3-6 months to confirm persistence, then annual CT until 5 years if unchanged and solid component remains <6 mm. Multiple sub-solid nodules<6 mmCT at 3-6 months, then CT consider at 2 & 4 years for high risk patients. [address] at 3-6 months. Subsequent management based on most suspicious lesions. Recommendations do not apply to lung cancer screening, patients with immunosuppression, or patients with known primary cancer. Dictated by: Marcial Garber M.D. on 09/04/2024 at 21:53 Approved by: Marcial Garber M.D. on 09/04/2024 at 21:59
== END ==
PROVIDERS: Family Provider Family Medicine; PCP Family Medicine; Referring Provider Family Medicine; Visit Provider Family Medicine
DX: J43.8 Other emphysema (principal); R91.1 Solitary pulmonary nodule; F17.210 Nicotine dependence, cigarettes, uncomplicated
CPT/HCPCS: 71250